=== PATIENT | female | born 1975 | race Caucasian/White ===

== ENCOUNTER → 2017-09-16 11:24 | Outpatient (CLI) | payer MEDICARE, MEDICAID, SELFPAY ==
[2017-09-16 12:55] LABS: Absolute Lymphocyte Count 1.28 X10^3/ul (0.83-4.51); Absolute Neutrophil Count 3.7 X10^3/uL (2.0-7.7); Basophil# 0.03 X10^3/uL; Basophil% 0.5 % (0-1); Eosinophil# 0.09 X10^3/uL; Eosinophils% 1.5 % (0-5); Hematocrit 43.2 % (37-47); Hemoglobin 14.3 g/dl (12.0-15.0); Lymphocyte # 1.28 X10^3/ul (4.0); Lymphocyte % 21.8 % (19-41); Mean Corp Hgb Conc 33.1 g/gl (32-36); Mean Corpuscular Hgb 30.6 pg (27.0-32.0); Mean Corpuscular Volume 92.3 fL (81-99); Mean Platelet Vol. 9.5 fl (6.2-12.0); Monocyte# 0.74 X10^3/uL; Monocyte% 12.6 % (0-10); Neutrophil # 3.72 X10^3/uL (2.7-7.7); Neutrophil % 63.4 % (47-70); Platelet Count 294 K/mm3 (150-450); RBC Distribution Width CV 12.8 % (11.6-14.6); RBC Distribution Width SD 42.9 fl (35.1-43.9); Red Blood Count 4.68 M/mm3 (4.2-5.4); White Blood Count 5.9 K/mm3 (4.4-11.0)
[2017-09-16 13:00] LABS: POSITIVE COUNT NO; POSITIVE DIFFERENTIAL NO; POSITIVE MORPHOLOGY NO
[2017-09-16 13:28] LABS: Anion Gap 9 (5-15); BUN 9 mg/dL (7-18); BUN/Creat Ratio 9.2 RATIO (10-20); Calcium,Total 8.4 mg/dL (8.5-10.1); Chloride 107 mmol/L (98-107); Creatinine, Serum 0.98 mg/dL (0.55-1.02); EST Glomerular Filtration Rate 66 mL/min (>60); Est Glom Filt Rate - Afr Amer 80 mL/min (>60); Glucose 84 mg/dL (74-106); Potassium 3.9 mmol/L (3.5-5.1); Sodium Level 139 mmol/L (136-145); Thyroid Stim Hormone (TSH) 2.09 uIU/mL (0.358-3.74)
== END ==
PROVIDERS: Family Provider Family Medicine Geriatric Medicine; PCP Family Medicine Geriatric Medicine; Visit Provider Family Medicine Geriatric Medicine
DX: I10 Essential (primary) hypertension (principal); R53.83 Other fatigue; R61 Generalized hyperhidrosis
CPT/HCPCS: 36415; 80048; 84443; 85025

== ENCOUNTER → 2018-05-09 16:29 | Outpatient (CLI) | payer MEDICARE, MEDICAID, SELFPAY ==
[2018-05-09 17:47] LABS: Absolute Lymphocyte Count 1.43 X10^3/ul (0.83-4.51); Absolute Neutrophil Count 2.7 X10^3/uL (2.0-7.7); Basophil# 0.03 X10^3/uL; Basophil% 0.6 % (0-1); Eosinophil# 0.09 X10^3/uL; Eosinophils% 1.9 % (0-5); Hematocrit 42.2 % (37-47); Hemoglobin 14.2 g/dl (12.0-15.0); Lymphocyte # 1.43 X10^3/ul (4.0); Lymphocyte % 29.6 % (19-41); Mean Corp Hgb Conc 33.6 g/gl (32-36); Mean Corpuscular Hgb 30.2 pg (27.0-32.0); Mean Corpuscular Volume 89.8 fL (81-99); Mean Platelet Vol. 9.7 fl (6.2-12.0); Monocyte# 0.57 X10^3/uL; Monocyte% 11.8 % (0-10); Neutrophil # 2.71 X10^3/uL (2.7-7.7); Neutrophil % 56.1 % (47-70); Platelet Count 315 K/mm3 (150-450); RBC Distribution Width CV 12.4 % (11.6-14.6); RBC Distribution Width SD 40.4 fl (35.1-43.9); White Blood Count 4.8 K/mm3 (4.4-11.0)
[2018-05-09 18:18] LABS: POSITIVE COUNT NO; POSITIVE DIFFERENTIAL NO; POSITIVE MORPHOLOGY NO
[2018-05-09 18:20] LABS: AST(SGOT) 25 U/L (15-37); Alanine Aminotransfer ALT/SGPT 38 U/L (13-56); Albumin, Serum 4.2 g/dL (3.2-5.0); Alkaline Phosphatase 130 U/L (45-117); Anion Gap 10 (5-15); BUN 6 mg/dL (7-18); BUN/Creat Ratio 6.1 RATIO (10-20); Calcium,Total 8.5 mg/dL (8.5-10.1); Chloride 106 mmol/L (98-107); Creatinine, Serum 0.98 mg/dL (0.55-1.02); EST Glomerular Filtration Rate 66 mL/min (>60); Est Glom Filt Rate - Afr Amer 80 mL/min (>60); Glucose 98 mg/dL (74-106); Potassium 2.9 mmol/L (3.5-5.1); Protein, Total 8.2 g/dL (6.4-8.2); Sodium Level 139 mmol/L (136-145); Thyroid Stim Hormone (TSH) 1.45 uIU/mL (0.358-3.74)
== END ==
PROVIDERS: Family Provider Family Medicine Geriatric Medicine; PCP Family Medicine Geriatric Medicine; Visit Provider Family Medicine Geriatric Medicine
DX: I10 Essential (primary) hypertension (principal)
CPT/HCPCS: 36415; 80053; 84443; 85025

== ENCOUNTER → 2019-04-04 14:23 | Outpatient (CLI) | payer MEDICARE, MEDICAID, SELFPAY | PROVIDERS: Family Provider Family Medicine Geriatric Medicine; PCP Family Medicine Geriatric Medicine; Referring Provider Family Medicine Geriatric Medicine; Visit Provider Family Medicine Geriatric Medicine | DX: J40 Bronchitis, not specified as acute or chronic (principal) | CPT/HCPCS: 87633 ==

== ENCOUNTER → 2019-05-09 08:08 | Outpatient (CLI) | payer MEDICARE, MEDICAID, SELFPAY ==
--- NOTE | 2019-05-09 08:14 | RAD_ITS ---
STUDY: X-RAY - ESOPHAGUS (BARIUM SWALLOW) WITH FLUOROSCOPY REASON FOR EXAM: Female, 44 years old. SCLERODERMA DYSPHAGIA, CHRONIC HEARTBURN; -- MS, MIXED CONNECTIVE TISSUE AUTOIMMUNE DISEASE TECHNIQUE: 15 view(s) of the esophagus were obtained following swallowing of barium. FLUOROSCOPY TIME (if supplied): (0:28) minutes/seconds COMPARISON: None. FINDINGS: There is no demonstrated esophageal foreign body. There is no demonstrated stricture or mucosal abnormality. There is a small hiatal hernia of the fundus of the stomach. No evidence of gastroesophageal reflux. The patient ingested a 12 mm tablet of barium without any difficulty. Normal visualized aortic arch and descending thoracic aorta. Normal visualized pulmonary parenchyma. Normal visualized osseous structures of the thorax. RAD/Esophagus Only IMPRESSION: Small sliding hiatal hernia without gastroesophageal reflux. Electronically Signed: Slade Benson, at 13:40 EST , Service support ,
== END ==
PROVIDERS: Family Provider Family Medicine Geriatric Medicine; PCP Family Medicine Geriatric Medicine; Referring Provider Internal Medicine Gastroenterology; Visit Provider Internal Medicine Gastroenterology
DX: M34.9 Systemic sclerosis, unspecified (principal); R13.10 Dysphagia, unspecified
CPT/HCPCS: 74220

== ENCOUNTER → 2019-06-30 09:21 | Outpatient (CLI) | payer MEDICARE, MEDICAID, SELFPAY ==
[2019-06-30 13:02] LABS: Absolute Lymphocyte Count 1.11 X10^3/uL (0.83-4.51); Absolute Neutrophil Count 2.7 X10^3/uL (2.0-7.7); Basophil# 0.05 X10^3/uL; Basophil% 1.1 % (0-1); Eosinophils% 4.3 % (0-5); Hematocrit 42.6 % (37-47); Hemoglobin 13.8 g/dL (12.0-15.0); Lymphocyte # 1.11 X10^3/ul (4.0); Lymphocyte % 23.9 % (19-41); Mean Corp Hgb Conc 32.4 g/dL (32-36); Mean Corpuscular Hgb 30.3 pg (27.0-32.0); Mean Corpuscular Volume 93.4 fL (81-99); Mean Platelet Vol. 9.2 fl (6.2-12.0); Monocyte% 12.9 % (0-10); NRBC Flagged by Analyzer 0 % (0-5); Neutrophil # 2.66 X10^3/uL (2.7-7.7); Neutrophil % 57.2 % (47-70); Platelet Count 351 K/mm3 (150-450); RBC Distribution Width CV 12.8 % (11.6-14.6); RBC Distribution Width SD 43.9 fl (35.1-43.9); Red Blood Count 4.56 M/mm3 (4.2-5.4); White Blood Count 4.7 K/mm3 (4.4-11.0)
[2019-06-30 13:32] LABS: ALB/GLOB Ratio 0.8 RATIO (0.9-2.4); AST(SGOT) 25 U/L (15-37); Alanine Aminotransfer ALT/SGPT 40 U/L (13-56); Albumin, Serum 3.5 g/dL (3.2-5.0); Alkaline Phosphatase 143 U/L (45-117); Anion Gap 9 (5-15); BUN 15 mg/dL (7-18); BUN/Creat Ratio 15.8 RATIO (10-20); Calcium,Total 8.1 mg/dL (8.5-10.1); Chloride 106 mmol/L (98-107); Creatinine, Serum 0.95 mg/dL (0.55-1.02); EST Glomerular Filtration Rate 68 mL/min (>60); Est Glom Filt Rate - Afr Amer 83 mL/min (>60); Globulin 4.2 g/dL (2.2-4.2); Glucose 81 mg/dL (74-106); Potassium 3.8 mmol/L (3.5-5.1); Protein, Total 7.7 g/dL (6.4-8.2); Sodium Level 138 mmol/L (136-145)
== END ==
PROVIDERS: PCP Family Medicine Geriatric Medicine; Referring Provider Family Medicine Geriatric Medicine; Visit Provider Family Medicine Geriatric Medicine
DX: I10 Essential (primary) hypertension (principal)
CPT/HCPCS: 36415; 80053; 84443; 85025

== ENCOUNTER → 2019-12-08 17:43 | Outpatient (CLI) | payer MEDICARE, MEDICAID, SELFPAY | PROVIDERS: PCP Family Medicine Geriatric Medicine; Referring Provider Family Medicine Geriatric Medicine; Visit Provider Family Medicine Geriatric Medicine | DX: R06.89 Other abnormalities of breathing (principal) | CPT/HCPCS: 87635; 94799; U0003 ==

== ENCOUNTER → 2021-02-10 15:24 | Outpatient (CLI) | payer MEDICARE, OTHER, SELFPAY ==
[2021-02-10 17:03] LABS: Absolute Lymphocyte Count 1.49 X10^3/uL (0.83-4.51); Absolute Neutrophil Count 4.1 X10^3/uL (2.0-7.7); Basophil# 0.04 X10^3/uL; Basophil% 0.6 % (0-1); Eosinophil# 0.13 X10^3/uL; Eosinophils% 2.1 % (0-5); Hematocrit 39.5 % (37-47); Hemoglobin 13.5 g/dL (12.0-15.0); Lymphocyte # 1.49 X10^3/ul (0.83-4.51); Lymphocyte % 23.6 % (19-41); Mean Corp Hgb Conc 34.2 g/dL (32-36); Mean Corpuscular Hgb 30.1 pg (27.0-32.0); Mean Corpuscular Volume 88.2 fL (81-99); Mean Platelet Vol. 9.4 fl (6.2-12.0); Monocyte# 0.56 X10^3/uL; Monocyte% 8.9 % (0-10); NRBC Flagged by Analyzer 0 % (0-5); Neutrophil # 4.07 X10^3/uL (2.7-7.7); Neutrophil % 64.5 % (47-70); Platelet Count 332 K/mm3 (150-450); RBC Distribution Width CV 13.1 % (11.6-14.6); Red Blood Count 4.48 M/mm3 (4.2-5.4); White Blood Count 6.3 K/mm3 (4.4-11.0)
[2021-02-10 17:20] LABS: ALB/GLOB Ratio 0.7 RATIO (0.9-2.4); AST(SGOT) 23 U/L (15-37); Alanine Aminotransfer ALT/SGPT 32 U/L (13-56); Alkaline Phosphatase 122 U/L (45-117); Anion Gap 10 (5-15); BUN 11 mg/dL (7-18); BUN/Creat Ratio 10.3 RATIO (10-20); Calcium,Total 8.2 mg/dL (8.5-10.1); Chloride 107 mmol/L (98-107); Creatinine, Serum 1.07 mg/dL (0.55-1.02); EST Glomerular Filtration Rate 59 mL/min (>60); Est Glom Filt Rate - Afr Amer 72 mL/min (>60); Globulin 4.5 g/dL (2.2-4.2); Glucose 123 mg/dL (74-106); Potassium 3.8 mmol/L (3.5-5.1); Protein, Total 7.5 g/dL (6.4-8.2); Sodium Level 138 mmol/L (136-145); Thyroid Stim Hormone (TSH) 1.22 uIU/mL (0.358-3.74)
== END ==
PROVIDERS: PCP Family Medicine Geriatric Medicine; Visit Provider Family Medicine Geriatric Medicine
DX: I10 Essential (primary) hypertension (principal)
CPT/HCPCS: 36415; 80053; 84443; 85025

== ENCOUNTER 2021-06-12 10:19 | Outpatient (CLI) | payer OTHER, MEDICARE, SELFPAY | END 2021-06-12 23:59 | disposition home or self-care (01) | LOC: PSN 10:22 | PROVIDERS: PCP Family Medicine Geriatric Medicine; Referring Provider Family Medicine Geriatric Medicine; Visit Provider Family Medicine Geriatric Medicine | DX: R68.83 Chills (without fever) (principal); Z20.822 Contact with and (suspected) exposure to COVID-19 | CPT/HCPCS: 87635; 87804; 87807; C9803; U0003; U0005 ==

== ENCOUNTER → 2022-01-06 | Outpatient (CLI) | payer MEDICARE, MEDICAID, SELFPAY ==
[2022-01-06 14:46] LABS: Hematocrit 42.1 % (37-47); Hemoglobin 13.6 g/dL (12.0-15.0); Mean Corp Hgb Conc 32.3 g/dL (32-36); Mean Corpuscular Hgb 29.8 pg (27.0-32.0); Mean Corpuscular Volume 92.1 fL (81-99); Mean Platelet Vol. 9.5 fl (6.2-12.0); Platelet Count 350 K/mm3 (150-450); RBC Distribution Width CV 12.9 % (11.6-14.6); RBC Distribution Width SD 43.3 fl (35.1-43.9); Red Blood Count 4.57 M/mm3 (4.2-5.4); White Blood Count 6.5 K/mm3 (4.4-11.0)
[2022-01-06 17:35] LABS: ALB/GLOB Ratio 0.6 RATIO (0.9-2.4); AST(SGOT) 17 U/L (15-37); Alanine Aminotransfer ALT/SGPT 28 U/L (13-56); Albumin, Serum 3.2 g/dL (3.2-5.0); Alkaline Phosphatase 142 U/L (45-117); Anion Gap 10 (5-15); BUN 12 mg/dL (7-18); BUN/Creat Ratio 8.5 RATIO (10-20); Calcium,Total 8.4 mg/dL (8.5-10.1); Chloride 107 mmol/L (98-107); Creatinine, Serum 1.41 mg/dL (0.55-1.02); EST Glomerular Filtration Rate 43 mL/min (>60); Est Glom Filt Rate - Afr Amer 52 mL/min (>60); Globulin 5.1 g/dL (2.2-4.2); Glucose 88 mg/dL (74-106); Potassium 3.9 mmol/L (3.5-5.1); Protein, Total 8.3 g/dL (6.4-8.2); Sodium Level 139 mmol/L (136-145); Thyroid Stim Hormone (TSH) 1.33 uIU/mL (0.358-3.74)
== END | disposition home or self-care (01) ==
LOC: LAB 14:03
PROVIDERS: PCP Family Medicine Geriatric Medicine; Visit Provider Psychiatry & Neurology Neurology
DX: I10 Essential (primary) hypertension (principal); F42.9 Obsessive-compulsive disorder, unspecified
CPT/HCPCS: 36415; 80053; 84443; 85027

== ENCOUNTER → 2022-03-31 | Outpatient (CLI) | payer MEDICARE, MEDICAID, SELFPAY ==
[2022-03-31 17:22] LABS: Absolute Lymphocyte Count 1.22 X10^3/uL (0.83-4.51); Absolute Neutrophil Count 7.1 X10^3/uL (2.0-7.7); Basophil# 0.06 X10^3/uL; Basophil% 0.6 % (0-1); Eosinophil# 0.13 X10^3/uL; Eosinophils% 1.4 % (0-5); Hemoglobin 13.9 g/dL (12.0-15.0); Lymphocyte # 1.22 X10^3/ul (0.83-4.51); Lymphocyte % 12.9 % (19-41); Mean Corp Hgb Conc 32.3 g/dL (32-36); Mean Corpuscular Hgb 29.2 pg (27.0-32.0); Mean Corpuscular Volume 90.3 fL (81-99); Monocyte# 0.92 X10^3/uL; Monocyte% 9.7 % (0-10); NRBC Flagged by Analyzer 0 % (0-5); Neutrophil # 7.08 X10^3/uL (2.7-7.7); Neutrophil % 74.9 % (47-70); Platelet Count 309 K/mm3 (150-450); RBC Distribution Width CV 13.1 % (11.6-14.6); RBC Distribution Width SD 43.3 fl (35.1-43.9); Red Blood Count 4.76 M/mm3 (4.2-5.4); White Blood Count 9.5 K/mm3 (4.4-11.0)
[2022-03-31 17:54] LABS: ALB/GLOB Ratio 0.8 RATIO (0.9-2.4); AST(SGOT) 18 U/L (15-37); Alanine Aminotransfer ALT/SGPT 27 U/L (13-56); Albumin, Serum 3.4 g/dL (3.2-5.0); Alkaline Phosphatase 119 U/L (45-117); Anion Gap 10 (5-15); BUN 8 mg/dL (7-18); BUN/Creat Ratio 6.7 RATIO (10-20); Calcium,Total 8.5 mg/dL (8.5-10.1); Chloride 108 mmol/L (98-107); Creatinine, Serum 1.19 mg/dL (0.55-1.02); EST Glomerular Filtration Rate 52 mL/min (>60); Est Glom Filt Rate - Afr Amer 63 mL/min (>60); Globulin 4.5 g/dL (2.2-4.2); Glucose 114 mg/dL (74-106); Potassium 3.5 mmol/L (3.5-5.1); Protein, Total 7.9 g/dL (6.4-8.2); Sodium Level 139 mmol/L (136-145); Thyroid Stim Hormone (TSH) 0.68 uIU/mL (0.358-3.74)
== END | disposition home or self-care (01) ==
LOC: POLAB3 14:38
PROVIDERS: PCP Family Medicine Geriatric Medicine; Visit Provider Family Medicine Geriatric Medicine
DX: I10 Essential (primary) hypertension (principal)
CPT/HCPCS: 36415; 80053; 84443; 85025

== ENCOUNTER → 2022-04-29 | Outpatient (CLI) | payer MEDICARE, MEDICAID, SELFPAY ==
[2022-04-29 17:28] LABS: Absolute Neutrophil Count 2.4 X10^3/uL (2.0-7.7); Basophil# 0.05 X10^3/uL; Eosinophil# 0.07 X10^3/uL; Eosinophils% 1.4 % (0-5); Hematocrit 40.3 % (37-47); Hemoglobin 13.6 g/dL (12.0-15.0); Lymphocyte % 30.7 % (19-41); Mean Corp Hgb Conc 33.7 g/dL (32-36); Mean Corpuscular Hgb 30.1 pg (27.0-32.0); Mean Corpuscular Volume 89.2 fL (81-99); Mean Platelet Vol. 9.6 fl (6.2-12.0); Monocyte# 0.83 X10^3/uL; NRBC Flagged by Analyzer 0 % (0-5); Neutrophil # 2.42 X10^3/uL (2.7-7.7); Neutrophil % 49.7 % (47-70); Platelet Count 335 K/mm3 (150-450); RBC Distribution Width CV 13.4 % (11.6-14.6); RBC Distribution Width SD 43.2 fl (35.1-43.9); Red Blood Count 4.52 M/mm3 (4.2-5.4); White Blood Count 4.9 K/mm3 (4.4-11.0)
[2022-04-29 17:49] LABS: Anion Gap 8 (5-15); BUN 6 mg/dL (7-18); BUN/Creat Ratio 6.1 RATIO (10-20); Calcium,Total 8.4 mg/dL (8.5-10.1); Chloride 112 mmol/L (98-107); Creatinine, Serum 0.98 mg/dL (0.55-1.02); EST Glomerular Filtration Rate 65 mL/min (>60); Est Glom Filt Rate - Afr Amer 79 mL/min (>60); Glucose 88 mg/dL (74-106); Magnesium 2.3 mg/dL (1.6-2.6); Potassium 3.4 mmol/L (3.5-5.1); Sodium Level 141 mmol/L (136-145)
== END | disposition home or self-care (01) ==
LOC: POLAB3 15:03
PROVIDERS: PCP Family Medicine Geriatric Medicine; Visit Provider Family Medicine Geriatric Medicine
DX: I10 Essential (primary) hypertension (principal); E83.42 Hypomagnesemia; E87.6 Hypokalemia; R19.7 Diarrhea, unspecified
CPT/HCPCS: 36415; 80048; 82274; 83630; 83735; 85025; 87177; 87209; 87493; 87506

== ENCOUNTER → 2022-07-09 | Outpatient (CLI) | payer MEDICARE, MEDICAID, SELFPAY ==
--- NOTE | 2022-07-09 14:44 | RAD_ITS ---
STUDY: X-RAY - LEFT SHOULDER REASON FOR EXAM: Female, 47 years old. Pain. TECHNIQUE: view(s) of the shoulder. COMPARISON: None. FINDINGS: Normal glenohumeral articulation. Mild arthrosis of the AC joint. Normal acromion. Normal humeral head and visualized proximal humerus. The soft tissue structures are unremarkable. Normal visualized pulmonary apex. RAD/Shoulder min 2 Views IMPRESSION: Mild arthrosis of the AC joint. No other abnormality. Electronically Signed: Fabien Alvarado, at 9:41 EST ,
== END | disposition home or self-care (01) ==
LOC: RAD 14:39
PROVIDERS: PCP Family Medicine Geriatric Medicine; Referring Provider Family Medicine Geriatric Medicine; Visit Provider Family Medicine Geriatric Medicine
DX: M19.012 Primary osteoarthritis, left shoulder (principal)
CPT/HCPCS: 73030

== ENCOUNTER → 2022-08-04 | Outpatient (CLI) | payer MEDICARE, MEDICAID, SELFPAY ==
[2022-08-04 17:41] LABS: Absolute Lymphocyte Count 1.45 X10^3/uL (0.83-4.51); Absolute Neutrophil Count 5.2 X10^3/uL (2.0-7.7); Basophil# 0.05 X10^3/uL; Basophil% 0.7 % (0-1); Eosinophil# 0.06 X10^3/uL; Eosinophils% 0.8 % (0-5); Hematocrit 43.8 % (37-47); Hemoglobin 14.6 g/dL (12.0-15.0); Lymphocyte # 1.45 X10^3/ul (0.83-4.51); Lymphocyte % 19.5 % (19-41); Mean Corp Hgb Conc 33.3 g/dL (32-36); Mean Corpuscular Hgb 30.2 pg (27.0-32.0); Mean Corpuscular Volume 90.5 fL (81-99); Mean Platelet Vol. 10.1 fl (6.2-12.0); Monocyte# 0.67 X10^3/uL; NRBC Flagged by Analyzer 0 % (0-5); Neutrophil # 5.19 X10^3/uL (2.7-7.7); Neutrophil % 69.6 % (47-70); Platelet Count 340 K/mm3 (150-450); RBC Distribution Width CV 13.2 % (11.6-14.6); RBC Distribution Width SD 43.2 fl (35.1-43.9); Red Blood Count 4.84 M/mm3 (4.2-5.4); White Blood Count 7.5 K/mm3 (4.4-11.0)
[2022-08-04 17:46] LABS: Glucose, Dipstick Normal (Normal); Ketone-Dipstick 5 mg/dl (Negative); Leukocyte Esterase-Dipstick Negative /ul (Negative); Nitrite-Dipstick Negative (Negative); Occult Blood-Urine Negative /ul (Negative); Protein-Dipstick 15 mg/dl (Negative); Urine Bilirubin Dipstick Negative (Negative); Urine Urobilinogen Normal (Normal)
[2022-08-04 17:53] LABS: Color, Urine Yellow (Yellow); Urine Clarity Clear (Clear)
[2022-08-04 18:11] LABS: Anion Gap 9 (5-15); BUN 8 mg/dL (7-18); BUN/Creat Ratio 7.3 RATIO (10-20); Calcium,Total 8.7 mg/dL (8.5-10.1); Chloride 114 mmol/L (98-107); Creatinine, Serum 1.09 mg/dL (0.55-1.02); EST Glomerular Filtration Rate 58 mL/min (>60); Est Glom Filt Rate - Afr Amer 70 mL/min (>60); Glucose 121 mg/dL (74-106); Potassium 3.2 mmol/L (3.5-5.1); Sodium Level 138 mmol/L (136-145)
== END | disposition home or self-care (01) ==
PROVIDERS: Psychiatry & Neurology Neurology; PCP Family Medicine Geriatric Medicine; Visit Provider Family Medicine Geriatric Medicine
DX: I10 Essential (primary) hypertension (principal); N28.9 Disorder of kidney and ureter, unspecified
CPT/HCPCS: 36415; 80048; 81002; 85025

== ENCOUNTER → 2022-10-13 | Outpatient (CLI) | payer MEDICARE, MEDICAID, SELFPAY ==
[2022-10-13 17:46] LABS: Anion Gap 6 (5-15); BUN 8 mg/dL (7-18); BUN/Creat Ratio 7.3 RATIO (10-20); Calcium,Total 8.9 mg/dL (8.5-10.1); Chloride 114 mmol/L (98-107); EST Glomerular Filtration Rate 57 mL/min (>60); Est Glom Filt Rate - Afr Amer 69 mL/min (>60); Glucose 90 mg/dL (74-106); Potassium 3.9 mmol/L (3.5-5.1); Sodium Level 140 mmol/L (136-145)
[2022-10-13 17:54] LABS: Hemoglobin A1c 5.1 % (3.8-5.6)
== END | disposition home or self-care (01) ==
LOC: MTLAB 15:37
PROVIDERS: PCP Family Medicine Geriatric Medicine; Referring Provider Psychiatry & Neurology Neurology; Visit Provider Psychiatry & Neurology Neurology
DX: N28.9 Disorder of kidney and ureter, unspecified (principal); E87.6 Hypokalemia; R73.9 Hyperglycemia, unspecified
CPT/HCPCS: 36415; 80048; 83036

== ENCOUNTER → 2022-10-14 | Outpatient (CLI) | payer MEDICARE, MEDICAID, SELFPAY ==
[2022-10-14 15:54] LABS: Erythrocyte Sedimentation Rate 12 mm/hr (0-30)
[2022-10-14 16:12] LABS: ALB/GLOB Ratio 0.8 RATIO (0.9-2.4); AST(SGOT) 15 U/L (15-37); Alanine Aminotransfer ALT/SGPT 20 U/L (13-56); Albumin, Serum 3.3 g/dL (3.2-5.0); Alkaline Phosphatase 111 U/L (45-117); Anion Gap 8 (5-15); BUN 11 mg/dL (7-18); BUN/Creat Ratio 10.5 RATIO (10-20); CRP < 2.90 mg/L (0.0-3.0); Calcium,Total 8.4 mg/dL (8.5-10.1); Chloride 114 mmol/L (98-107); Creatinine, Serum 1.05 mg/dL (0.55-1.02); EST Glomerular Filtration Rate 60 mL/min (>60); Est Glom Filt Rate - Afr Amer 73 mL/min (>60); Globulin 4.3 g/dL (2.2-4.2); Glucose 88 mg/dL (74-106); LDH 150 U/L (84-246); Potassium 3.5 mmol/L (3.5-5.1); Protein, Total 7.6 g/dL (6.4-8.2); Sodium Level 139 mmol/L (136-145)
[2022-10-16 15:08] LABS: Albumin 3.6 g/dL (2.9-4.4); Alpha-1-Globulins 0.2 g/dL (0.0-0.4); Alpha-2-Globulins 0.8 g/dL (0.4-1.0); Angiotensin Convert Enzyme 40 U/L (14-82); Anti-Centromere B Ab <0.2 AI (0.0-0.9); Anti-Chromatin 0.4 AI (0.0-0.9); Anti-Jo <0.2 AI (0.0-0.9); Anti-Mitochondrial AB <20.0 Units (0.0-20.0); Anti-Scleroderma-70 AB <0.2 AI (0.0-0.9); Anti-Smooth Muscle ABS 9 Units (0-19); Anti-dsDNA Ab <1 IU/mL (0-9); Ceruloplasmin 27.8 mg/dL (19.0-39.0); Cytoplasmic Ab (C-ANCA) <1:20 titer (Neg:<1:20); Endomysial Antibody IgA Negative (Negative); Gamma Globulin 1.4 g/dL (0.4-1.8); HEPATITIS B SURFACE AG Negative (Negative); Hep C Antibodies Non Reactive (Non Reactive); Hepatitis A IgM Antibody Negative (Negative); Hepatitis B Core AB IgM Negative (Negative); Immunoglobulin A 307 mg/dL (87-352); Immunoglobulin A 322 mg/dL (87-352); Immunoglobulin G 1298 mg/dL (586-1602); Immunoglobulin M 72 mg/dL (26-217); PROEL- TOTAL PROTEIN 7.4 g/dL (6.0-8.5); Perinuclear Ab (P-ANCA) <1:20 titer (Neg:<1:20); RNP Ab 3.3 AI (0.0-0.9); SJOGREN'S Anti-SS-A test < 0.2 AI (0.0-0.9); SJOGREN'S Anti-SS-B test < 0.2 AI (0.0-0.9); Smith Ab 0.6 AI (0.0-0.9); t-Transglutaminase IgA <2 U/mL (0-3)
== END | disposition home or self-care (01) ==
PROVIDERS: PCP Family Medicine Geriatric Medicine; Referring Provider Internal Medicine Gastroenterology; Visit Provider Internal Medicine Gastroenterology
DX: R19.5 Other fecal abnormalities (principal); R53.83 Other fatigue
CPT/HCPCS: 36415; 80053; 80074; 82164; 82390; 82784; 83516; 83615; 84165; 85652; 86140; 86225; 86235; 86255; 86256; 86334

== ENCOUNTER → 2023-04-01 | Outpatient (CLI) | payer MEDICARE, MEDICAID, SELFPAY ==
[2023-04-01 17:28] LABS: Absolute Lymphocyte Count 1.04 X10^3/uL (0.83-4.51); Absolute Neutrophil Count 2.9 X10^3/uL (2.0-7.7); Basophil# 0.06 X10^3/uL; Basophil% 1.2 % (0-1); Eosinophil# 0.09 X10^3/uL; Eosinophils% 1.8 % (0-5); Hematocrit 39.8 % (37-47); Hemoglobin 13.5 g/dL (12.0-15.0); Lymphocyte # 1.04 X10^3/ul (0.83-4.51); Lymphocyte % 21.4 % (19-41); Mean Corp Hgb Conc 33.9 g/dL (32-36); Mean Corpuscular Volume 97.3 fL (81-99); Mean Platelet Vol. 9.8 fl (6.2-12.0); Monocyte% 14.4 % (0-10); NRBC Flagged by Analyzer 0 % (0-5); Neutrophil # 2.93 X10^3/uL (2.7-7.7); Neutrophil % 60.2 % (47-70); Platelet Count 389 K/mm3 (150-450); RBC Distribution Width CV 14.6 % (11.6-14.6); RBC Distribution Width SD 51.1 fl (35.1-43.9); Red Blood Count 4.09 M/mm3 (4.2-5.4); White Blood Count 4.9 K/mm3 (4.4-11.0)
[2023-04-01 18:08] LABS: AST(SGOT) 28 U/L (15-37); Alanine Aminotransfer ALT/SGPT 55 U/L (13-56); Albumin, Serum 3.8 g/dL (3.2-5.0); Alkaline Phosphatase 121 U/L (45-117); Anion Gap 7 (5-15); BUN 7 mg/dL (7-18); Calcium,Total 8.1 mg/dL (8.5-10.1); Chloride 110 mmol/L (98-107); Cholesterol 134 mg/dL (200); EST Glomerular Filtration Rate 64 mL/min (>60); Est Glom Filt Rate - Afr Amer 77 mL/min (>60); Globulin 3.7 g/dL (2.2-4.2); Glucose 83 mg/dL (74-106); High Density Lipoprotein 48 mg/dL; Potassium 3.4 mmol/L (3.5-5.1); Protein, Total 7.5 g/dL (6.4-8.2); Sodium Level 139 mmol/L (136-145); Thyroid Stim Hormone (TSH) 1.39 uIU/mL (0.358-3.74); Triglycerides 100 mg/dL; Very Low Density Lipoprotein 20 mg/dL (5-40)
[2023-04-01 18:39] LABS: Color, Urine Yellow (Yellow); Glucose, Dipstick Normal (Normal); Ketone-Dipstick 5 mg/dl (Negative); Leukocyte Esterase-Dipstick 25 /ul (Negative); Nitrite-Dipstick Negative (Negative); Occult Blood-Urine 250 /ul (Negative); Protein-Dipstick 30 mg/dl (Negative); Urine Bilirubin Dipstick Negative (Negative); Urine Clarity Sl. Cloudy (Clear); Urine Urobilinogen Normal (Normal)
== END | disposition home or self-care (01) ==
LOC: POLAB3 16:02
PROVIDERS: PCP Family Medicine Geriatric Medicine; Visit Provider Family Medicine Geriatric Medicine
DX: R30.0 Dysuria (principal); I10 Essential (primary) hypertension; E78.5 Hyperlipidemia, unspecified
CPT/HCPCS: 36415; 80053; 80061; 81002; 84443; 85025; 87086; 87088

== ENCOUNTER → 2023-08-26 | Outpatient (CLI) | payer MEDICARE, MEDICAID, SELFPAY ==
[2023-08-26 11:23] LABS: Creatinine, Serum 1.01 mg/dL (0.55-1.02); EST Glomerular Filtration Rate 63 mL/min (>60); Est Glom Filt Rate - Afr Amer 76 mL/min (>60); Potassium 3.1 mmol/L (3.5-5.1)
== END | disposition home or self-care (01) ==
LOC: MTLAB 08:42
PROVIDERS: PCP Family Medicine Geriatric Medicine; Referring Provider Psychiatry & Neurology Neurology; Visit Provider Psychiatry & Neurology Neurology
DX: E87.6 Hypokalemia (principal)
CPT/HCPCS: 36415; 82565; 84132

== ENCOUNTER → 2023-09-06 | Outpatient (CLI) | payer MEDICARE, MEDICAID, SELFPAY ==
--- NOTE | 2023-09-06 12:51 | ECHOD_ITS ---
Version 2 Reason For Study: PERICARDIAL EFFUSION Procedure This was a 2D Doppler, Color Flow transthoracic echocardiogram. Exam performed in department. Left Ventricle Normal LV size. Left ventricular systolic function is normal. The left ventricular ejection fraction is 60 %. No regional wall motion abnormalities noted. Right Ventricle Normal RV size. Normal systolic function. Atria Normal left atrium. Normal right atrium. Mitral Valve Normal mitral valve. Tricuspid Valve Normal tricuspid valve. Mild (1+) tricuspid valve insufficiency. Pulmonary artery systolic pressure is 27 mmHg. Aortic Valve Trisinus/trileaflet aortic valve. Mild (1+) aortic valve insufficiency. Pulmonic Valve Normal pulmonic valve. Great Vessels Normal aortic root. The pulmonary artery is normal size. Normal inferior vena cava. Pericardium/Pleural No pericardial effusion. MMode/2D Measurements & Calculations LVIDd: 4.2 cm IVSd: 0.80 cm Ao root diam: 2.4 cm LVIDs: 2.7 cm LVPWd: 0.77 cm RVDd: 2.8 cm FS: 34.9 % LAV(MOD-bp): 36.5 ml LVAd ap4: 21.6 cm2 LVAd ap2: 18.4 cm2 LAV(MOD-bp) Indexed: 21.5 ml/m2 LVLd ap4: 7.9 cm LVLd ap2: 7.1 cm LAV(MOD-sp2): 29.4 ml EDV(MOD-sp4): 51.2 ml EDV(MOD-sp2): 41.8 ml LAV(MOD-sp4): 40.9 ml EDV(sp4-el): 50.6 ml EDV(sp2-el): 40.8 ml LVAs ap4: 11.5 cm2 LVAs ap2: 10.0 cm2 LVLs ap4: 6.0 cm LVLs ap2: 5.6 cm ESV(MOD-sp4): 20.1 ml ESV(MOD-sp2): 15.4 ml ESV(sp4-el): 18.7 ml ESV(sp2-el): 15.0 ml EF(MOD-sp4): 60.6 % EF(MOD-sp2): 63.1 % EF(sp4-el): 63.1 % SV(MOD-sp4): 31.0 ml SV(MOD-sp2): 26.4 ml SV(sp4-el): 31.9 ml LA dimension(2D): 3.3 cm LA A4 area: 15.7 cm2 RA A4 area: 11.8 cm2 TAPSE: 1.9 cm Time Measurements MV dec time: 0.15 sec Doppler Measurements & Calculations MV E max prieto: 53.9 cm/sec Lat Peak E' Prieto: 18.1 cm/sec Med Peak E' Prieto: 11.2 cm/sec MV A max prieto: 51.1 cm/sec E/E' lat: 3.0 E/E' med: 4.8 MV E/A: 1.1 MV V2 max: 139.0 cm/sec MV P1/2t max prieto: 123.1 cm/sec Ao V2 max: 121.0 cm/sec MV max P.7 mmHg MV P1/2t: 55.4 msec Ao max P.9 mmHg MV V2 mean: 64.3 cm/sec MV dec slope: 651.0 cm/sec2 Ao V2 mean: 84.5 cm/sec MV mean P.0 mmHg Ao mean P.3 mmHg MV V2 VTI: 25.9 cm MVA(P1/2t): 4.0 cm2 Ao V2 VTI: 27.5 cm AV (velocity ratio): 0.76 AI max prieto: 427.2 cm/sec LV V1 max: 93.2 cm/sec PA V2 max: 95.1 cm/sec AI max P.0 mmHg LV V1 max P.5 mmHg PA V2 mean: 64.6 cm/sec AI dec slope: 183.6 cm/sec2 LV V1 mean P.0 mmHg AI P1/2t: 681.5 msec LV V1 mean: 68.8 cm/sec LV V1 VTI: 20.9 cm TR max prieto: 242.5 cm/sec TR max P.5 mmHg ECHO/Echo Complete Interpretation Summary The left ventricular ejection fraction is 60 %. Normal LV size. Left ventricular systolic function is normal. No pericardial effusion. Structurally normal valves. Ordering Physician: Amado Salamanca Referring Physician: Danie Perkins chi Performed By: Monica Roberson, JENNIFER, RVT
--- NOTE | 2023-09-06 15:02 | RAD_ITS ---
EXAM: XR CHEST, 2 VIEWS CLINICAL INDICATION: CP TECHNIQUE: Frontal and lateral views of the chest. COMPARISON: No relevant prior studies available. FINDINGS: LUNGS AND PLEURAL SPACES: Unremarkable. No consolidation or edema. No pneumothorax. No effusion. HEART: Unremarkable. Cardiac silhouette not enlarged. MEDIASTINUM: Central airways and mediastinal contour are unremarkable. BONES/JOINTS: Unremarkable. No acute fracture. SOFT TISSUES: Cholecystectomy clips are noted. RAD/Chest PA and Lateral IMPRESSION: No radiographic evidence of acute cardiopulmonary disease. Electronically Signed: Sophia Campa MD at 6:05 EDT ,
== END | disposition home or self-care (01) ==
PROVIDERS: PCP Family Medicine Geriatric Medicine; Referring Provider Family Medicine Geriatric Medicine; Visit Provider Family Medicine Geriatric Medicine
DX: R07.9 Chest pain, unspecified (principal)
CPT/HCPCS: 71046; 93306

== ENCOUNTER → 2024-02-03 | Outpatient (CLI) | payer MEDICARE, MEDICAID, SELFPAY ==
[2024-02-03 11:01] LABS: Absolute Lymphocyte Count 1.29 X10^3/uL (0.83-4.51); Absolute Neutrophil Count 2.2 X10^3/uL (2.0-7.7); Basophil# 0.05 X10^3/uL; Basophil% 1.2 % (0-1); Eosinophil# 0.09 X10^3/uL; Eosinophils% 2.1 % (0-5); Hematocrit 43.3 % (37-47); Hemoglobin 14.1 g/dL (12.0-15.0); Lymphocyte # 1.29 X10^3/ul (0.83-4.51); Lymphocyte % 30.3 % (19-41); Mean Corp Hgb Conc 32.6 g/dL (32-36); Mean Corpuscular Hgb 31.3 pg (27.0-32.0); Mean Platelet Vol. 9.3 fl (6.2-12.0); Monocyte# 0.58 X10^3/uL; Monocyte% 13.6 % (0-10); NRBC Flagged by Analyzer 0 % (0-5); Neutrophil # 2.24 X10^3/uL (2.7-7.7); Neutrophil % 52.6 % (47-70); Platelet Count 279 K/mm3 (150-450); RBC Distribution Width CV 11.9 % (11.6-14.6); RBC Distribution Width SD 42.1 fl (35.1-43.9); Red Blood Count 4.51 M/mm3 (4.2-5.4); White Blood Count 4.3 K/mm3 (4.4-11.0)
[2024-02-03 11:10] LABS: Prothrombin Time (Protime)PT. 13.6 SECONDS (11.7-14.9)
[2024-02-03 12:11] LABS: ALB/GLOB Ratio 0.9 RATIO (0.9-2.4); AST(SGOT) 18 U/L (15-37); Alanine Aminotransfer ALT/SGPT 18 U/L (13-56); Albumin, Serum 3.4 g/dL (3.2-5.0); Alkaline Phosphatase 139 U/L (45-117); Anion Gap 6 (5-15); BUN 11 mg/dL (7-18); BUN/Creat Ratio 10.2 RATIO (10-20); Calcium,Total 8.8 mg/dL (8.5-10.1); Chloride 113 mmol/L (98-107); Creatinine, Serum 1.08 mg/dL (0.55-1.02); EST Glomerular Filtration Rate 58 mL/min (>60); Est Glom Filt Rate - Afr Amer 70 mL/min (>60); Globulin 3.9 g/dL (2.2-4.2); Glucose 95 mg/dL (74-106); Potassium 3.8 mmol/L (3.5-5.1); Protein, Total 7.3 g/dL (6.4-8.2); Sodium Level 141 mmol/L (136-145)
== END | disposition home or self-care (01) ==
LOC: LAB.FUTURE 10:33
PROVIDERS: PCP Family Medicine Geriatric Medicine; Visit Provider Family Medicine Geriatric Medicine
DX: E87.6 Hypokalemia (principal); M79.604 Pain in right leg; E78.5 Hyperlipidemia, unspecified; R73.9 Hyperglycemia, unspecified
CPT/HCPCS: 36415; 80053; 82306; 84443; 85025; 85610; 85730

== ENCOUNTER → 2024-02-03 | Outpatient (CLI) | payer MEDICARE, MEDICAID, SELFPAY ==
--- NOTE | 2024-02-03 10:15 | VDLE_ITS ---
Reason For Study: RLE Pain RIGHT LEFT GSV is normal. CFV is compressible, spontaneous, phasic, CFV is compressible, spontaneous, phasic, competent, and demonstrates normal competent and demonstrates normal augmentation. augmentation. FV is compressible, spontaneous, phasic, competent and demonstrates normal augmentation. POP V is compressible, phasic, and INCOMPETENT for greater than 1.0 second. T/P Trunk is compressible. PTV is compressible. RT PerV is compressible. Procedure This is a venous duplex using B-mode, color flow and spectral Doppler. Exam performed in department. The exam was diagnostic. A preliminary report was called and/or faxed to Dr. Perkins office. VL/Venous Duplex US, Unilateral Interpretation Summary Deep veins of the right lower extremity are patent and compressible segmentally . There is no evidence of right lower extremity deep vein thrombosis. The right popliteal vei n is incompetent. The right common femoral vein and femoral vein are competent. The right great saphe nous vein appears patent and compressible segmentally. The left common femoral vein is patent and compressible . Ordering Physician: Danie Perkins Chi Referring Physician: Danie Perkins Chi Performed By: Juan José Aaron RVT
== END | disposition home or self-care (01) ==
LOC: CVS 10:13
PROVIDERS: PCP Family Medicine Geriatric Medicine; Referring Provider Family Medicine Geriatric Medicine; Visit Provider Family Medicine Geriatric Medicine
DX: M25.512 Pain in left shoulder (principal); M19.012 Primary osteoarthritis, left shoulder; M75.102 Unspecified rotator cuff tear or rupture of left shoulder, not specified as traumatic; S80.11XA Contusion of right lower leg, initial encounter; M79.604 Pain in right leg
CPT/HCPCS: 93971

== ENCOUNTER → 2024-04-04 | Outpatient (CLI) | payer MEDICARE, MEDICAID, SELFPAY ==
[2024-04-04 16:37] LABS: Absolute Lymphocyte Count 1.65 X10^3/uL (0.83-4.51); Basophil# 0.11 X10^3/uL; Basophil% 1.3 % (0-1); Eosinophil# 0.18 X10^3/uL; Eosinophils% 2.1 % (0-5); Hematocrit 42.9 % (37-47); Hemoglobin 14.5 g/dL (12.0-15.0); Lymphocyte # 1.65 X10^3/ul (0.83-4.51); Lymphocyte % 19.1 % (19-41); Mean Corp Hgb Conc 33.8 g/dL (32-36); Mean Corpuscular Volume 94.7 fL (81-99); Mean Platelet Vol. 9.6 fl (6.2-12.0); Monocyte# 0.62 X10^3/uL; Monocyte% 7.2 % (0-10); NRBC Flagged by Analyzer 0 % (0-5); Neutrophil # 6.03 X10^3/uL (2.7-7.7); Neutrophil % 69.7 % (47-70); Platelet Count 311 K/mm3 (150-450); RBC Distribution Width SD 44.3 fl (35.1-43.9); Red Blood Count 4.53 M/mm3 (4.2-5.4); White Blood Count 8.6 K/mm3 (4.4-11.0)
[2024-04-04 17:23] LABS: ALB/GLOB Ratio 0.8 RATIO (0.9-2.4); AST(SGOT) 19 U/L (15-37); Alanine Aminotransfer ALT/SGPT 20 U/L (13-56); Alkaline Phosphatase 132 U/L (45-117); Anion Gap 8 (5-15); BUN 18 mg/dL (7-18); BUN/Creat Ratio 15.3 RATIO (10-20); Calcium,Total 8.3 mg/dL (8.5-10.1); Chloride 111 mmol/L (98-107); Cholesterol 180 mg/dL (200); Creatinine, Serum 1.18 mg/dL (0.55-1.02); EST Glomerular Filtration Rate 52 mL/min (>60); Est Glom Filt Rate - Afr Amer 63 mL/min (>60); Glucose 160 mg/dL (74-106); High Density Lipoprotein 62 mg/dL; Potassium 3.8 mmol/L (3.5-5.1); Sodium Level 138 mmol/L (136-145); Triglycerides 220 mg/dL; Very Low Density Lipoprotein 44 mg/dL (5-40)
== END | disposition home or self-care (01) ==
LOC: POLAB3 16:13
PROVIDERS: PCP Family Medicine Geriatric Medicine; Visit Provider Family Medicine Geriatric Medicine
DX: E87.6 Hypokalemia (principal); E78.5 Hyperlipidemia, unspecified; I10 Essential (primary) hypertension
CPT/HCPCS: 36415; 80053; 80061; 84443; 85025

== ENCOUNTER → 2024-06-12 | Outpatient (CLI) | payer MEDICARE, MEDICAID, SELFPAY ==
--- NOTE | 2024-06-12 12:35 | CT_ITS ---
PROCEDURE: CTA ABD/PELVIS W/WO CONTRAST REASON FOR EXAM: Abdominal pain. Possible omental infarction. TECHNIQUE: CTA imaging of the abdomen and pelvis with intravenous contrast. 3D reconstructions. IV CONTRAST: 100 cc of Isovue 370. COMPARISON: None. FINDINGS: Aorta: Abdominal aorta is normal in size. No significant atherosclerotic plaque. No evidence of aneurysm or dissection. Iliac Arteries: Iliac arteries are normal in size with no significant plaque or stenosis. Celiac: Normal. SMA: Normal. RAKESH : Normal. Right Renal: Normal. Left Renal: Normal. Other Findings: The patient is status post cholecystectomy. Fatty infiltration of the liver. Bilateral tubal ligation clips are seen. Small hiatal hernia. The visualized abdominal and pelvic viscera are unremarkable. No ascites or lymphadenopathy. UBone windows are unremarkable. CT/CTA Abd/Pelvis W/WO Contrast IMPRESSION: Unremarkable abdominal aorta and major visceral branches. Fatty infiltration of the liver. Status post cholecystectomy. One or more dose reduction techniques were used (e.g., Automated exposure contr ol, adjustment of the mA and/or kV according to patient size, use of iterative reconstruction technique). Reading Location: [place] [id number]
[2024-06-12 12:41] LABS: Absolute Lymphocyte Count 1.33 X10^3/uL (0.83-4.51); Absolute Neutrophil Count 3.2 X10^3/uL (2.0-7.7); Basophil# 0.05 X10^3/uL; Basophil% 0.9 % (0-1); Eosinophil# 0.07 X10^3/uL; Eosinophils% 1.3 % (0-5); Hematocrit 41.3 % (37-47); Hemoglobin 14.2 g/dL (12.0-15.0); Lymphocyte # 1.33 X10^3/ul (0.83-4.51); Lymphocyte % 24.7 % (19-41); Mean Corp Hgb Conc 34.4 g/dL (32-36); Mean Corpuscular Hgb 31.9 pg (27.0-32.0); Mean Corpuscular Volume 92.8 fL (81-99); Mean Platelet Vol. 9.4 fl (6.2-12.0); Monocyte# 0.69 X10^3/uL; Monocyte% 12.8 % (0-10); NRBC Flagged by Analyzer 0 % (0-5); Neutrophil # 3.23 X10^3/uL (2.7-7.7); Neutrophil % 60.1 % (47-70); Platelet Count 306 K/mm3 (150-450); RBC Distribution Width CV 12.8 % (11.6-14.6); Red Blood Count 4.45 M/mm3 (4.2-5.4); White Blood Count 5.4 K/mm3 (4.4-11.0)
[2024-06-12 13:08] LABS: ALB/GLOB Ratio 0.8 RATIO (0.9-2.4); AST(SGOT) 21 U/L (15-37); Alanine Aminotransfer ALT/SGPT 24 U/L (13-56); Albumin, Serum 3.4 g/dL (3.2-5.0); Alkaline Phosphatase 129 U/L (45-117); Anion Gap 6 (5-15); BUN 11 mg/dL (7-18); BUN/Creat Ratio 9.6 RATIO (10-20); Calcium,Total 8.5 mg/dL (8.5-10.1); Chloride 112 mmol/L (98-107); Creatinine, Serum 1.14 mg/dL (0.55-1.02); EST Glomerular Filtration Rate 54 mL/min (>60); Est Glom Filt Rate - Afr Amer 66 mL/min (>60); Globulin 4.2 g/dL (2.2-4.2); Glucose 77 mg/dL (74-106); Potassium 3.8 mmol/L (3.5-5.1); Protein, Total 7.6 g/dL (6.4-8.2); Sodium Level 138 mmol/L (136-145)
[2024-06-12 13:22] LABS: Lactic Acid 1.5 mmol/L (0.4-1.9)
== END | disposition home or self-care (01) ==
PROVIDERS: PCP Family Medicine Geriatric Medicine; Referring Provider Family Medicine Geriatric Medicine; Visit Provider Family Medicine Geriatric Medicine
DX: R10.9 Unspecified abdominal pain (principal); K55.069 Acute infarction of intestine, part and extent unspecified
CPT/HCPCS: 36415; 74174; 80053; 83605; 85025; Q9967

== ENCOUNTER → 2025-04-12 | Outpatient (CLI) | payer MEDICARE, MEDICAID, SELFPAY ==
[2025-04-12 15:31] LABS: Hematocrit 45.0 % (37-47); Hemoglobin 14.8 g/dL (12.0-15.0); Immature Granulocytes Count 0.010 X10^3/uL (0.0-0.0); Mean Corp Hgb Conc 32.9 g/dL (32-36); Mean Corpuscular Volume 92.6 fL (81-99); Mean Platelet Vol. 9.6 fl (6.2-12.0); NRBC Flagged by Analyzer 0 % (0-5); Platelet Count 321 K/mm3 (150-450); RBC Distribution Width CV 13.6 % (11.6-14.6); RBC Distribution Width SD 46.2 fl (35.1-43.9); Red Blood Count 4.86 M/mm3 (4.2-5.4); White Blood Count 4.3 K/mm3 (4.4-11.0)
[2025-04-12 16:16] LABS: AST(SGOT) 34 U/L (<=31); Alanine Aminotransfer ALT/SGPT 26 U/L (<=34); Albumin, Serum 4.2 g/dL (3.5-5.0); Alkaline Phosphatase 131 U/L (35-104); Anion Gap 14 (5-15); BUN 9 mg/dL (4-19); BUN/Creat Ratio 9.1 RATIO (10-20); Calcium,Total 9.0 mg/dL (7.6-11.0); Carbon Dioxide 16.8 mmol/L (21.0-32.0); Chloride 111 mmol/L (98-108); Globulin 3.4 g/dL (2.2-4.2); Glucose 105 mg/dL (70-99); Potassium 4.2 mmol/L (3.3-5.1)
[2025-04-12 17:18] LABS: Magnesium 2.1 mg/dL (1.5-2.2)
--- OUTSIDE RECORDS SUMMARY | 2025-04-12 18:05 | XMS RPT_ITS | CCD ---
Author Organization [facility] Care Team Providers Care [employer] Operator Name Role Phone Danie Perkins Chi Unavailable LISA COTTO Attending Unavaila ble DANIE PERKINS CHI Primary Care Unavailable Neftali Cabral Admitting Unavailable Badeduardo, Neftali Almaraz Attending Unavailable Brian Khan Admitting Unavailabl e Brian Khna Attending Unavailabl e ShookHaritha Admitting Unavailable ShoHaritha powell Attending Unavailable SubitCornelio Admitting Unavailable Subit, Cornelio Cade Attending Unavailable BadNeftali clark Admitting Unavailable BadNeftali clark Attending Unavailable Danie Perkins Chi Primary Care Provider Danie Perkins Chi Primary Care Provider Dr. Danie Perkins Chi Primary Care Provider [phone] Dr. Danie Perkins Chi Referring Provider [phone] Neftali Cabral Attending Provider [phone] Dr. Danie Perkins Chi Primary Care Provider Dr. Danie Perkins Chi Referring Provider Dr. Neftali Cabral Attending Provider Gregorio MUHAMMAD, Charline Primary Care Provider Gregorio MUHAMMAD, Danie Guerra Unavailable Unavailable Gregorio MUHAMMAD, Danie Guerra Primary Care Provider EDDIE ALDANA Attending Unavailab le GREGORIO, DANIE CHI Primary Care Unavailable GREGORIO, DANIE CHI Primary Care Unavailable EDDIE ALDANA Admitting Unavailab EDDIE Suh Referring Unavailab le GREGORIO, DANIE CHI Primary Care Unavailable EDDIE ALDANA Attending Unavailab ana ALDANA, EDDIE LEE Admitting Unavailab EDDIE Suh Referring Unavailab le GREGORIO, DANIE CHI Primary Care Unavailable Gregorio, Dr. Danie Guerra Primary Care Provider [phone] Neftali Cabral Attending Provider [phone] Misha, Dr. Lindsay Referring Provider [phone] ASH JOEL JR. Attending Unavailable ASH JOEL JR. Referring Unavailable GREGORIO, ADNIE-CHI Primary Care Unavailable GREGORIO, DANIE-CHI Primary Care Unavailable Gregorioandre MUHAMMAD, Charline Primary Care Provider Danie Perkins MD, Chi Unavailable Unavailable Gregorio, Dr. Danie Guerra Primary Care Provider [phone] Danie Perkins Chi Referring Provider Dr. Ash Joel Attending Provider [phone] Afua Snowden Attending Provider Unavailable Dr. Neftali Cabral Attending Provider [phone] Raydeepa, Dr. Lindsay Referring Provider [phone] Jazmin, Dr. Patel Attending Provider CARLYN SCHULTZ Referring Unavailable CARLYN SCHULTZ Attending Unavailable GREGORIO, DANIE-CHI Primary Care Unavailable Dr. Danie Perkins Chi Primary Care Provider [phone] Danie Perkins Chi Referring Provider [facility] ORGANIC PREPARATION ANALYST, ORGANIC PREPARATION ANALYST-Prosper Bryan Attending Provider Dr. Neftali Cabral Attending Provider [phone] Neftali Cabral Referring Provider Dr. Philip Jaimes Attending Provider Gregorio MUHAMMAD, Danie-Chi Primary Care Provider Danie Perkins MD, Chi Unavailable Unavailable KEVIN KNIGHT Attending Unavailable GREGORIO, DANIE CHI Primary Care Unavailable SESAR HELLER Attending Unavailable GREGORIO, DANIE CHI Primary Care Unavailable LITO, SOPHIA Referring Unavailable LITO SOPHIA Attending Unavailable GREGORIO, DANIE CHI Primary Care Unavailable LITO, SOPHIA Referring Unavailable LITO, SOPHIA Attending Unavailable GREGORIO, DANIE CHI Primary Care Unavailable GREGORIO, DANIE CHI Primary Care Unavailable ROMULOISHANKAR, CHEYENNE C Referring Unavailable JULIAN GUNNIN C Attending Unavailable Gregorio , Dr. Danie Guerra Primary Care Provider Dr. Danie Perkins MD, Chi Referring Provider [phone] Misha MUHAMMAD, Dr. Lindsay Attending Provider GREGORIO, DANIE CHI Primary Care Unavailable LITO, SOPHIA Referring Unavailable LITO, SOPHIA Attending Unavailable LITO, SOPHIA Referring Unavailable LITO, SOPHIA Attending Unavailable GREGORIO, DANIE-CHI Primary Care Unavailable GREGORIO, DANIE-CHI Primary Care Unavailable ABIEL ALDRIDGE Attending Unavailable LITO, SOPHIA Referring Unavailable LITO, SOPHIA Attending Unavailable GREGORIO, DANIE-CHI Primary Care Unavailable SELF, SELF Referring Unavailable LITO, SOPHIA Attending Unavailable GREGORIO, DANIE-CHI Primary Care Unavailable SELF, SELF Referring Unavailable Karlur , Dr. Lindsay Referring Provider [phone] Dr. Danie Perkins MD, Chi Referring Provider [phone] Neftali Cabral Attending Unavailable Neftali Cabral Referring Unavailable Gregorio, Danie Chi Primary Care Unavailable Neftali Cabral Attending Unavailable RaydourNeftali Referring Unavailable Gregorio, Danie Chi Primary Care Unavailable Gregorio, Danie Chi Primary Care Unavailable Gregorio, Danie Chi Attending Unavailable Gregorio, Danie Chi Referring Unavailable Gregorio, Danie Chi Primary Care Unavailable Gregorio, Danie Chi Attending Unavailable Philip Jaimes Attending Unavailable Gregorio, Danie Chi Referring Unavailable Gregorio, Danie Chi Primary Care Unavailable Mable Larios Attending Unavailable Gregorio, Danie Chi Referring Unavailable Gregorio, Danie Chi Primary Care Unavailable Livier Barrios Attending Unavailable Gregorio, Danie Chi Referring Unavailable Gregorio, Danie Chi Primary Care Unavailable Allergies Allergy Classification Reported Allergen(s) Allergy Type Date of Onset Reaction(s) Facility (12 sources) ciprofloxacin; Translations: [CIPROFLOXACIN (MIXTURE)] Drug Allergy 03-17-20 16 [facility] (20 sources) guaiFENesin / phenylephrine; Translations: [PHENYLEPHRINE-GUAI FENESIN] Drug Allergy 03-17-20 16 [facility] (19 sources) Ciprofloxacin Drug Allergy 12-27-19 10 Other [facility] Comment on above: SEIZURE (10 sources) Ciprofloxacin; Translations: [ciprofloxacin HCl] Drug Allergy 12-31-19 22 Other [facility] Comment on above: seizure went to ER (13 sources) guaiFENesin; Translations: [GUAIFENESIN] Drug Allergy 03-10-20 14 Other (See Comments) [facility] Work Phone: (10 sources) Phenylephrine; Translations: [phenylephrine HCl] Drug Allergy 12-31-19 22 Other, Hives [facility] (10 sources) Phenylpropanolamine ; Translations: [phenylpropanolamin e HCl] Drug Allergy 12-31-19 22 Other [facility] (10 sources) Pseudoephedrine Drug Allergy 12-27-19 10 [facility] (9 sources) Adhesive agent; Translations: [ADHESIVE] Propensity to adverse reactions to drug 03-17-20 Unknown [facility] Comment on above: SKIN BURN (4 sources) Phenylephrine; Translations: [PHENYLEPHRINE] Drug Allergy 03-10-20 14 Other (See Comments) [facility] (4 sources) Phenylpropanolamine ; Translations: [PHENYLPROPANOLAMIN E] Drug Allergy 03-10-20 14 Other (See Comments) [facility] (1 source) Adhesive agent Drug allergy (disorder) 01-17-20 [facility] Repository (1 source) Ciprofloxacin Drug Allergy 01-17-20 [facility] Repository (1 source) guaiFENesin Drug Allergy 01-17-20 [facility] Repository Medications Current Medications Medication Drug Class(es) Dates Sig (Normalized) Sig (Original) [id number] 200 actuat albuterol 0.09 mg/actuat metered dose inhaler (1 source) beta2-Adrenergic Agonist Start: 03-31-2022 albuterol 90 mcg/actuation inhaler baclofen 10 mg oral tablet (20 sources) gamma-Aminobutyri c Acid-ergic Agonist Start: 11-06-2024 take 0.5-1 tablets by mouth three times daily as needed for pain Baclofen 10 mg tablet Active 10 mg PO THREE TIMES A DAY as needed for muscle spasm/muscle pain 90 7 November 06, 2024 1:30pm Take 1/2 to 1 tablet orally three times daily as needed for muscle pain/spasm Start: 08-26-2023 End: 11-06-2024 take 1 tablet by mouth twice daily as needed for pain Baclofen 10 mg tablet Discontinued 10 mg PO TWICE A DAY as needed for muscle spasm/muscle pain 60 7 February 21, 2024 1:31pm November 06, 2024 1:31pm Start: 09-09-2022 End: 11-18-2022 take 1 tablet by mouth at bedtime Baclofen 10 mg tablet Discontinued 10 mg PO AT BEDTIME September 09, 2022 3:24pm November 18, 2022 10:01am Muscle spasm/pain Start: 04-23-2022 End: 05-23-2022 take 1 tablet by mouth three times daily baclofen (LIORESAL) 10 MG tablet Take 1 (one) tablet (10 mg total) by mouth 3 (three) times a day . 90 tablet 0 04/23/2022 05/23/2022 Active Start: 12-30-2021 End: 11-18-2022 take 1 tablet by mouth twice daily as needed for pain Baclofen 10 mg tablet Discontinued 10 mg PO TWICE A DAY as needed for Muscle spasm/pain 60 4 December 30, 2021 12:00am September 09, 2022 1:08pm take 1 tablet by yaron three times daily baclofen (LIORESAL) 10 MG tablet Take 10 mg by mouth 3 (three) times a day. 0 Active busPIRone hydrochloride 30 mg oral tablet (20 sources) Start: 09-09-2022 take 1 tablet by mouth once daily Buspirone 30 mg tablet Active 30 mg PO DAILY September 09, 2022 1:05pm Start: 06-15-2022 End: 09-09-2022 take 1 tablet by mouth three times daily Buspirone 30 mg tablet Discontinued 30 mg PO THREE TIMES A DAY June 15, 2022 1:00am September 09, 2022 1:08pm Start: 03-28-2022 busPIRone (BUS PAR) 30 MG tablet take 1.5 tablets by mouth twice daily busPIRone 10 MG Tab Take 1.5 tablets by mouth 2 times daily. Active calcium carbonate 625 mg / cholecalciferol 125 unt oral tablet (1 source) Vitamin D Start: 04-22-2022 End: 04-22-2023 take 1 tablet by mouth once daily at breakfast calcium-vitamin D (OS-MARCELA +D) 250 mg-3.125 mcg (125 unit) Tab Take 1 (one) tablet by mouth daily with breakfast Start: 04/22/22. 90 tablet 3 04/22/2022 04/22/2023 Active diclofenac sodium 0.01 mg/mg topical gel (8 sources) Nonsteroidal Anti-inflammatory Drug Start: 08-26-2023 End: 01-16-2025 Diclofenac Sodium (Arthritis Pain (Diclofenac)) 1 % gel Active 4 g TOPICAL .QID as needed for muscle pain 100 6 January 16, 2025 11:44am ergocalciferol 1.25 mg oral capsule (1 source) Provitamin D2 Compound Start: 09-19-2024 take 1 capsule by mouth every week Ergocalciferol 1.25 MG (71522 UT) capsule Take 1 capsule by mouth once a week for 8 doses. 4 capsule 1 09/19/2024 Active escitalopram 20 mg oral tablet (2 sources) Serotonin Reuptake Inhibitor Start: 04-23-2022 End: 05-23-2022 take 1 tablet by mouth once daily escitalopram oxalate (LEXAPRO) 20 MG tablet Take 1 (one) tablet (20 mg total) by mouth daily . 30 tablet 0 04/23/2022 05/23/2022 Active End: 05-07-2022 take 1 tablet by mouth once daily escitalopram 5 MG tablet Take 5 mg by mouth daily. 0 05/07/2022 Discontinued fluvoxaMINE maleate 100 mg oral tablet (11 sources) Serotonin Reuptake Inhibitor Start: 02-08-2023 take 1 tablet by mouth at bedtime Fluvoxamine 100 mg tablet Active 100 mg PO AT BEDTIME June 07, 2023 1:00am folic acid 1 mg oral tablet (12 sources) Start: 10-26-2023 End: 08-31-2024 take 1 tablet by mouth once daily Folic acid 1 MG tablet Take 1 tablet by mouth daily. 90 tablet 3 08/31/2024 Active Start: 04-21-2022 End: 04-22-2023 take 1 tablet by mouth once daily Folic acid 1 MG tablet Take 1 tablet by mouth daily. 90 tablet 3 04/22/2023 Active furosemide 40 mg oral tablet (1 source) Loop Diuretic Start: 01-16-2025 take 1 tablet by mouth once daily in the morning Furosemide (Lasix) 40 mg tablet Active 40 mg PO EVERY MORNING 30 0 January 16, 2025 12:00am hydroxychloroquine sulfate 200 mg oral tablet (20 sources) Antimalarial, Antirheumatic Agent Start: 10-26-2023 End: 08-31-2024 take 1.5 tablets by mouth once daily Hydroxychloroquine 200 MG tablet Take 1.5 tablets by mouth daily. 135 tablet 2 08/31/2024 Active Start: 04-22-2023 take 1.5 tablets by mouth once daily Hydroxychloroquine 200 MG tablet Take 1.5 tablets by mouth daily. 135 tablet 2 04/22/2023 Active Start: 08-10-2022 take 1 tablet by yaron th once daily Hydroxychloroquine (Plaquenil) 200 mg tablet Active 200 mg PO DAILY August 10, 2022 12:00am Start: 05-07-2022 End: 04-22-2023 take 2 tablets by mouth once daily Hydroxychloroquine 200 MG tablet Take 2 tablets by mouth daily. 180 tablet 3 10/15/2022 04/22/2023 Discontinued (Reorder) Start: 07-14-2016 End: 05-07-2022 hydrOXYchloroQUINE (PLAQUENI L) 200 mg tablet ibuprofen 800 mg oral tablet (1 source) Nonsteroidal Anti-inflammatory Drug Start: 06-23-2019 End: 07-23-2019 take 1 tablet by mouth every six hours as needed ibuprofen (ADVIL,MOTRIN) 800 MG tablet Take 1 (one) tablet (800 mg total) by mouth every 6 (six) hours as needed for pain . 20 tablet 0 06/23/2019 07/23/2019 Active ivermectin 10 mg/ml topical cream (1 source) Antiparasitic, Pediculicide Start: 11-17-2024 Ivermectin (Soolantra) 1 % Cream Indications: Rosacea , Demodex acne Apply to face 1-2 times daily 30 g 3 11/17/2024 Active 24 hr lamoTRIgine 50 mg extended release oral tablet (15 sources) Mood Stabilizer, Anti-epileptic Agent Start: 09-09-2022 take 1 tablet by mouth twice daily Lamotrigine 50 mg tablet extended release 24hr Active 50 mg PO TWICE A DAY September 09, 2022 12:00am Start: 04-21-2022 End: 04-21-2023 take 1 tablet by mouth twice daily Lamotrigine 100 mg tablet Discontinued 100 mg PO TWICE A DAY June 15, 2022 1:00am September 09, 2022 1:02pm take 1 tablet by yaron th once daily lamoTRIgine (LAMICTAL) 100 MG tablet Take 100 mg by mouth daily . 0 Active meclizine hydrochloride 12.5 mg oral tablet (4 sources) Antiemetic take 1 tablet by mouth three times daily as needed for nausea meclizine (ANTIVERT) 12.5 mg tablet Take 12.5 mg by mouth 3 (three) times a day as needed for nausea . 0 Active methotrexate 25 mg/ml injectable solution (14 sources) Folate Analog Metabolic Inhibitor Start: methotrexate 50 MG/2ML Solution injection INJECT 0.6 ML UNDER THE SKIN EVERY 7 DAYS. 12 mL 1 07/18/2024 Active Start: 11-11-2023 Methotrexate S odium (methotrexate, PF,) 25 MG/ML Solution Inject 0.6 mL under the skin every 7 days. 8 mL 3 11/11/2023 Active Start: 04-22-2023 Methotrexate S odium (methotrexate, PF,) 25 MG/ML Solution Inject 0.6 mL under the skin every 7 days. 8 mL 3 04/22/2023 Active Start: 03-08-2023 End: 04-22-2023 methotrexate 2.5 MG tablet T RIVAS 6 TABLETS BY MOUTH EVERY 7 DAYS. 30 tablet 0 03/08/2023 04/22/2023 Discontinued Start: 11-18-2022 End: 06-07-2023 Methotrexate Sodium 2.5 mg t ablet Discontinued 15 mg PO November 18, 2022 12:00am June 07, 2023 2:43pm Start: 11-18-2022 End: 06-07-2023 Methotrexate Sodium Disconti nued 15 MG PO November 18, 2022 12:00am June 07, 2023 2:43pm Start: 10-15-2022 methotrexate 2 .5 MG tablet Take 6 tablets by mouth every 7 days. 30 tablet 3 10/15/2022 Active methylPREDNISolone (1 source) Corticosteroid Start: 12-13-2019 End: 12-20-2019 methylPREDNISolone (MEDROL DOSEPACK) 4 mg tablet follow package directions . 21 tablet 0 12/13/2019 12/20/2019 Active naloxone hydrochloride 40 mg/ml nasal spray (1 source) Opioid Antagonist Start: 04-23-2022 naloxone (NARCAN) 4 mg/actuation [place] Administer 1 spray into one nostril for known or suspected opioid overdose. If patient worsens or does not respond, may repeat in 2-3 minutes. . 2 each 0 04/23/2022 Active naproxen 500 mg oral tablet (7 sources) Nonsteroidal Anti-inflammatory Drug Start: 04-04-2024 take 1 tablet by mouth twice daily naproxen 500 MG tablet Take 1 tablet by mouth 2 times daily. 04/04/2024 Active Start: 09-09-2022 End: 09-09-2022 take 1 tablet by mouth twice daily as needed Naproxen 500 mg tablet Discontinued 500 mg PO TWICE A DAY as needed September 09, 2022 12:00am September 09, 2022 3:24pm nortriptyline 25 mg oral capsule (11 sources) Tricyclic Antidepressant take 1 capsule by mouth at bedtime nortriptyline 25 MG Cap Take 1 capsule by mouth At bedtime. Active QUEtiapine 200 mg oral tablet (20 sources) Atypical Antipsychotic Start: 06-15-19 Quetiapine (Seroquel) 200 mg tablet Active 300 mg PO DAILY June 15, 2022 4:26pm Start: 03-10-2014 End: 06-15-2022 take 1 tablet by mouth once daily Quetiapine (Seroquel) 200 MG tablet Discontinued 200 mg PO DAILY March 10, 2014 1:00am June 15, 2022 4:28pm take 1 tablet by yaron th twice daily QUEtiapine 300 MG Tab Take 1 tablet by mouth 2 times daily. Active rivaroxaban 15 mg oral tablet (17 sources) Factor Xa Inhibitor Start: 03-18-2022 take 1 tablet by mouth once daily at dinner Rivaroxaban (Xarelto) 15 mg tablet Active 15 mg PO DAILY August 10, 2022 12:00am must administer with evening meal sulfamethoxazole 800 mg / trimethoprim 160 mg oral tablet (4 sources) Dihydrofolate Reductase Inhibitor Antibacterial, Sulfonamide Antimicrobial Start: 08-23-2018 take 1 tablet by mouth twice daily sulfamethoxazole -trimethoprim (BACTRIM DS,SEPTRA DS) 800-160 mg per tablet Take 1 (one) tablet by mouth 2 (two) times a day . 20 tablet 0 08/23/2018 Active SUMAtriptan 100 mg oral tablet (20 sources) Serotonin-1b and Serotonin-1d Receptor Agonist Start: 02-25-2022 SUMAtriptan (IMITREX) 100 MG tablet Start: 12-30-2021 End: 11-08-2024 take 1 tablet by mouth every two hours as needed for headache, then take 2 tablets by mouth once daily as needed for headache Sumatriptan Succinate 100 mg tablet Active 0 PO .COMPLEX 9 November 08, 2024 7:29am Take 1 tablet PO every 2 hours as needed for headache up to 2 tablets/day SYRINGE/NEEDLE, DISP, 1 ML 2 5G X 5/8 1 ML Misc (8 sources) Start: 08-31-2024 SYRINGE/NEEDLE , DISP, 1 ML 25G X 5/8 1 ML Misc Once a week for methotrexate 50 Each 08/31/2024 Active Start: 10-26-2023 End: 08-31-2024 SYRINGE/NEEDLE, DISP, 1 ML 2 5G X 5/8 1 ML Misc Once a week for methotrexate 50 Each 10/26/2023 08/31/2024 Discontinued (Reorder) Start: 10-26-2023 SYRINGE/NEEDLE , DISP, 1 ML 25G X 5/8 1 ML Misc Once a week for methotrexate 50 Each 10/26/2023 Active Start: 04-22-2023 SYRINGE/NEEDLE , DISP, 1 ML 25G X 5/8 1 ML Misc Once a week for methotrexate 50 Each 04/22/2023 Active Start: 04-22-2023 SYRINGE/NEEDLE , DISP, 1 ML 25G X 5/8 1 ML Misc Once a week for methotrexate 50 Each 0 04/22/2023 Active topiramate 100 mg oral tablet (20 sources) Anti-epileptic Agent Start: 08-26-2023 End: 11-08-2024 take 1 tablet by mouth three times daily Topiramate (Topamax) 100 mg tablet Active 100 mg PO THREE TIMES A DAY November 08, 2024 7:29am Start: 06-07-2023 End: 08-26-2023 take 3 tablets by mouth three times daily Topiramate (Topamax) 100 mg tablet Discontinued 300 mg PO THREE TIMES A DAY June 07, 2023 2:43pm August 26, 2023 8:26am Start: 04-21-2022 End: 04-21-2023 take 1 tablet by mouth twice daily topiramate (TOPAMAX) 100 MG tablet Take 1 (one) tablet (100 mg total) by mouth 2 (two) times a day . 180 tablet 3 04/21/2022 04/21/2023 Active Start: 03-10-2014 End: 06-07-2023 take 1 tablet by mouth three times daily Topiramate (Topamax) 100 mg tablet Discontinued 100 mg PO THREE TIMES A DAY March 29, 2023 5:24pm June 07, 2023 2:45pm traMADol hydrochloride 50 mg oral tablet (1 source) Opioid Agonist Start: 04-23-2022 take 1 tablet by mouth every six hours as needed for pain and pain, then take 1 tablet by mouth every six hours as needed for pain and pain traMADoL (ULTRAM) 50 mg tablet Indications: Closed displaced fracture of second metatarsal bone of right foot, initial encounter Take 1 (one) tablet (50 mg total) by mouth every 6 (six) hours as needed for pain Take one tablet 50 mg total by mouth every 6 hours as needed for pain . 12 tablet 0 04/23/2022 Active Turmeric Root Extract 750 mg capsule (1 source) Start: 01-16-2025 take 1 capsule by mouth once daily Turmeric Root Extract 750 mg capsule Active 750 mg PO DAILY 30 January 16, 2025 12:00am Completed/Discontinued Medications Medication Drug Class(es) Dates Sig (Normalized) Sig (Original) acetaminophen 325 mg / HYDROcodone bitartrate 5 mg oral tablet (11 sources) Opioid Agonist Start: 01-31-2021 End: 10-15-2022 take 1 tablet by mouth every four hours as needed hydroCODone-acetami nophen 5-325 MG tablet Indications: Pilonidal cyst Take 1 tablet by mouth every 4 hours as needed for up to 3 days. 18 tablet 0 01/31/2021 10/15/2022 Discontinued Start: 03-10-2014 End: 12-30-2021 Hydrocodone-Acetaminophen 1 TABLET tablet Discontinued 1 - 2 {tbl} PO EVERY 6 HOURS NEEDED as needed for Pain 12 0 March 10, 2014 1:00am December 30, 2021 9:50pm causes drowsiness Start: 03-10-2014 End: 12-30-2021 take 1 tablet by mouth every six hours as needed Hydrocodone-Acetaminophen Discontinued 1 - 2 TABLET PO EVERY 6 HOURS NEEDED March 10, 2014 1:00am December 30, 2021 9:50pm causes drowsiness azithromycin 250 mg oral tablet (2 sources) Macrolide Antimicrobial Start: 12-13-2019 End: 12-13-2019 azithromycin (ZITHROMAX) tablet 500 mg Start: 12-13-2019 take 1 tablet by yaron th once daily azithromycin (ZITHROMAX) 250 MG tablet Take 1 (one) tablet (250 mg total) by mouth daily . 4 tablet 0 12/13/2019 Active 12 hr buPROPion hydrochloride 200 mg extended release oral tablet (10 sources) Aminoketone Start: 06-15-2022 End: 09-09-2022 take 1 tablet by mouth once daily Bupropion Hcl 200 mg tablet sustained-release 12 hr Discontinued 200 mg PO DAILY June 15, 2022 1:00am September 09, 2022 1:08pm Start: 03-28-2022 buPROPion (WEL LBUTRIN SR) 200 MG 12 hr tablet Start: 11-29-2009 take 1 tablet by yaron th every twenty-four hours buPROPion (Wellbutrin XL) 150 MG 24 hr tablet Take by mouth . 0 11/29/2009 Active cefTRIAXone 1000 mg injection (1 source) Cephalosporin Antibacterial Start: 08-23-2018 End: 08-23-2018 cefTRIAXone (ROCEPHIN) IVPB 1 g (premix) diazePAM 5 mg oral tablet (9 sources) Benzodiazepine Start: 03-10-2014 End: 12-30-2021 take 7.5 mg by mouth twice daily Diazepam 5 MG tablet Discontinued 7.5 mg PO TWICE A DAY March 10, 2014 1:00am December 30, 2021 9:50pm Start: 03-10-2014 End: 12-30-2021 take 7.5 mg by mouth twice daily Diazepam Discontinued 7.5 MG PO TWICE A DAY March 10, 2014 1:00am December 30, 2021 9:50pm eletriptan 40 mg oral tablet (9 sources) Serotonin-1b and Serotonin-1d Receptor Agonist Start: 03-10-2014 End: 12-30-2021 Eletriptan (Relpax) 40 MG tablet Discontinued 40 mg PO .X1 PRN March 10, 2014 1:00am December 30, 2021 9:51pm eszopiclone 3 mg oral tablet (9 sources) Start: 03-10-2014 End: 12-30-2021 take 1 tablet by mouth at bedtime as needed Eszopiclone (Lunesta) 3 MG tablet Discontinued 3 mg PO AT BEDTIME NEEDED as needed for Insomnia March 10, 2014 1:00am December 30, 2021 1:19pm flurbiprofen 100 mg oral tablet (3 sources) Nonsteroidal Anti-inflammatory Drug End: 10-15-2022 take 1 tablet by mouth three times daily flurbiprofen 100 MG Tab Take 1 tablet by mouth 3 times daily. 0 10/15/2022 Discontinued hydroCHLOROthiazide 12.5 mg / losartan potassium 100 mg oral tablet (1 source) Thiazide Diuretic, Angiotensin 2 Receptor Delicia End: 05-07-2022 losartan-hydrochl orothiazide 100-12.5 MG Tab take 1 tablet by mouth at bedtime.. 0 05/07/2022 Discontinued 1 ml HYDROmorphone hydrochloride 1 mg/ml injection (2 sources) Opioid Agonist Start: 06-23-2019 End: 06-23-2019 HYDROmorphone (DILAUDID) injection 0.5 mg Start: 06-23-2019 End: 06-23-2019 HYDROmorphone (DILAUDID) inj ection 1 mg hydrOXYzine pamoate 50 mg oral capsule (20 sources) Antihistamine Start: 08-10-2022 End: 11-18-2022 take 1 capsule by mouth at bedtime Hydroxyzine Pamoate (Vistaril) 50 mg capsule Discontinued 50 mg PO AT BEDTIME August 10, 2022 12:00am November 18, 2022 10:01am Start: 03-10-2014 End: 05-07-2022 Vistaril Discontinued 50 mg PO NEEDED as needed for Anxiety March 10, 2014 1:00am December 30, 2021 1:20pm hydrOXYzine (VIS TARIL) 25 MG capsule daily as needed. 0 Active hyoscyamine sulfate 0.125 mg sublingual tablet (1 source) End: 05-07-2022 hyoscyamine 0.125 MG Tab SL tablet SL Take 125 mcg by mouth every 4 hours as needed for Cramping. 0 05/07/2022 Discontinued 1 ml ketorolac tromethamine 30 mg/ml injection (1 source) Nonsteroidal Anti-inflammatory Drug, Cyclooxygenase Inhibitor Start: 06-23-2019 End: 06-23-2019 ketorolac (TORADOL) injection 30 mg lidocaine 0.05 mg/mg medicated patch (10 sources) Antiarrhythmic, Amide Local Anesthetic Start: 06-20-2019 End: 06-20-2019 lidocaine (LIDODERM) 1 patch Start: 03-10-2014 End: 12-30-2021 Lidocaine 1 PATCH patch Discontinued 1 NMA TOPICAL DAILY March 10, 2014 1:00am December 30, 2021 9:50pm Start: 03-10-2014 End: 12-30-2021 apply 1 dose topically once daily Lidocaine Discontinued 1 PATCH TOPICAL DAILY March 10, 2014 1:00am December 30, 2021 9:50pm linaclotide 0.072 mg oral capsule (1 source) Guanylate Cyclase-C Agonist End: 05-07-2022 linaCLOtide 72 MCG capsule Take by mouth. 0 05/07/2022 Discontinued methocarbamol 750 mg oral tablet (9 sources) Muscle Relaxant Start: 03-10-2014 End: 12-30-2021 take 1 tablet by mouth three times daily as needed for pain Methocarbamol (Robaxin-750) 750 MG tablet Discontinued 750 mg PO 3 TIMES DAILY NEEDED as needed for Pain March 10, 2014 1:00am December 30, 2021 1:20pm mirtazapine 45 mg oral tablet (20 sources) Start: 08-10-2022 End: 06-07-2023 take 1 tablet by mouth once daily Mirtazapine 45 mg tablet Discontinued 45 mg PO DAILY August 10, 2022 12:00am June 07, 2023 2:43pm Start: 03-10-2014 End: 12-30-2021 take 1 tablet by mouth at bedtime Mirtazapine 15 MG tablet Discontinued 15 mg PO AT BEDTIME March 10, 2014 1:00am December 30, 2021 9:50pm End: 08-31-2024 take 1 tablet by mouth at bedtime mirtazapine 30 MG Tab Take 1 tablet by mouth At bedtime. 08/31/2024 Discontinued omeprazole 20 mg delayed release oral capsule (18 sources) Proton Pump Inhibitor Start: 03-07-2012 End: 12-30-2021 take 1 capsule by mouth once daily Omeprazole 20 MG capsule Discontinued 20 mg PO DAILY March 10, 2014 1:00am December 30, 2021 1:20pm End: 10-15-2022 Omepraz[address] take by mouth.. 0 10/15/2022 Discontinued 2 ml ondansetron 2 mg/ml injection (1 source) Serotonin-3 Receptor Antagonist Start: 06-23-2019 End: 06-23-2019 ondansetron (ZOFRAN) injection 4 mg pantoprazole 40 mg delayed release oral tablet (17 sources) Proton Pump Inhibitor Start: 04-17-2022 End: 11-18-2022 take 1 tablet by mouth once daily Pantoprazole 40 mg tablet,delayed release (DR/EC) Discontinued 40 mg PO DAILY August 10, 2022 12:00am November 18, 2022 10:01am Start: 04-17-2022 End: 05-23-2022 take 1 tablet by mouth twice daily pantoprazole (PROTONIX) 40 MG tablet Take 1 (one) tablet (40 mg total) by mouth 2 (two) times a day . 60 tablet 0 04/23/2022 05/23/2022 Active permethrin 50 mg/ml topical cream (1 source) Pyrethroid Start: 06-02-2018 End: 05-07-2022 permethrin 5 % Cream Apply cream from head to feet, leave on for 8 to 14 hours, then wash with soap/water, repeat application in 14 days 60 g 1 06/02/2018 05/07/2022 Discontinued 1000 ml sodium chloride 9 mg/ml injection (4 sources) Start: 12-13-2019 End: 12-13-2019 sodium chloride 0.9% (NS) bolus 1,000 mL Start: 06-23-2019 End: 06-23-2019 sodium chloride 0.9% (NS) guillermina uady 1,000 mL Start: 08-23-2018 End: 08-23-2018 sodium chloride 0.9% (NS) guillermina uday 1,000 mL Start: 08-23-2018 End: 08-23-2018 sodium chloride (PF) (NS) fl ush 5 mL spironolactone 25 mg oral tablet (1 source) Aldosterone Antagonist End: 05-07-2022 take 1 tablet by mouth once daily spironolactone 25 MG Tab tablet Take 25 mg by mouth daily. 0 05/07/2022 Discontinued traZODone hydrochloride 100 mg oral tablet (20 sources) Serotonin Reuptake Inhibitor Start: 06-07-2023 End: 02-21-2024 Trazodone 100 mg tablet Discontinued 150 mg PO AT BEDTIME June 07, 2023 2:44pm February 21, 2024 1:22pm Start: 06-07-2023 take 150 mg by mouth at bedtim e Trazodone Active 150 MG PO AT BEDTIME June 07, 2023 2:44pm Start: 03-19-2022 End: 06-07-2023 take 1 tablet by mouth at bedtime Trazodone 100 mg tablet Discontinued 100 mg PO AT BEDTIME June 15, 2022 1:00am June 07, 2023 2:45pm triamcinolone acetonide 0.001 mg/mg topical ointment (1 source) Corticosteroid Start: 05-26-2018 End: 05-07-2022 24 hr divalproex sodium 500 mg extended release oral tablet (9 sources) Mood Stabilizer, Anti-epileptic Agent Start: 03-10-2014 End: 12-30-2021 take 1 tablet by mouth once daily Divalproex 500 MG tablet extended release 24 hr Discontinued 500 mg PO DAILY March 10, 2014 1:00am December 30, 2021 1:19pm zaleplon 5 mg oral capsule (20 sources) gamma-Aminobutyric Acid A Receptor Agonist Start: 08-10-2022 End: 11-18-2022 take 1 capsule by mouth at mealtime Zaleplon 5 mg capsule Discontinued 5 mg PO AT BEDTIME September 09, 2022 3:22pm November 18, 2022 10:02am must avoid high-fat meal/food immediately before taking dose Start: 04-23-2022 End: 08-26-2023 take 1 capsule by mouth at mealtime Zaleplon 10 mg capsule Discontinued 10 mg PO AT BEDTIME June 15, 2022 1:00am August 26, 2023 8:19am must avoid high-fat meal/food immediately before taking dose Problems Active Problems Problem Classification Problem Date Documented Da te Episodic/Chronic Anxiety disorders (19 sources) Obsessive-compulsive disorder; Translations: [Obsessive-compulsive disorder, unspecified] 01-01-2010 Chronic Coagulation and hemorrhagic disorders (10 sources) Lupus anticoagulant disorder; Translations: [Lupus anticoagulant syndrome] Chronic Congestive heart failure; nonhypertensive (2 sources) Heart failure, unspecified; Translations: [Heart failure, unspecified] Onset: 5 Chronic E Codes: Fall (1 source) Fall; Translations: [Unspecified fall, initial encounter] Onset: 2 04-20-2022 Episodic Esophageal disorders (10 sources) Gastroesophageal reflux disease; Translations: [Gastro-esophageal reflux disease without esophagitis] 01-01-2010 Chronic Essential hypertension (9 sources) Hypertensive disorder; Translations: [Essential (primary) hypertension] 12-30-2021 Chronic Comment on above: Controlled without m eds Fracture of lower limb (5 sources) Closed fracture of right ankle; Translations: [Other fracture of right lower leg, sequela] Onset: 2 Episodic Headache; including migraine (18 sources) Migraine with aura; Translations: [Migraine with aura, not intractable, without status migrainosus] Onset: 5 Chronic Headache; including migraine (2 sources) Headache; including migraine; Translations: [Headache, unspecified] Onset: 4 Inflammation; infection of eye (except that caused by tuberculosis or sexually transmitteddisease) (9 sources) Optic neuritis; Translations: [Unspecified optic neuritis] 05-25-2013 Chronic Malaise and fatigue (19 sources) Fatigue; Translations: [Other fatigue] Onset: 5 Episodic Multiple sclerosis (5 sources) Multiple sclerosis; Translations: [Multiple sclerosis] 08-17-2022 Chronic Nonspecific chest pain (8 sources) Atypical chest pain; Translations: [Chest pain] 04-22-2023 Episodic Osteoarthritis (10 sources) Arthritis; Translations: [Unspecified osteoarthritis, unspecified site] 01-01-2010 Chronic Other aftercare (5 sources) Taking high risk medication; Translations: [Other termite inspector (current) drug therapy] Episodic Other aftercare (2 sources) Encounter for follow-up examination after completed treatment for conditions other than malignant neoplasm; Translations: [Encounter for follow-up examination after completed treatment for conditions other than malignant neoplasm] Onset: 3 Episodic Other aftercare (2 sources) Other detention (current) drug therapy; Translations: [Other termite inspector (current) drug therapy] Onset: 5 Episodic Other bone disease and musculoskeletal deformities (3 sources) Disorder of bone; Translations: [Disorder of bone, unspecified] Episodic Other bone disease and musculoskeletal deformities (1 source) Osteopenia; Translations: [Other specified disorders of bone density and structure, unspecified site] 08-31-2024 Episodic Other circulatory disease (9 sources) Mixed collagen vascular disease; 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] 05-25-2013 Chronic Other connective tissue disease (1 source) Hand pain Episodic Other connective tissue disease (1 source) Tendinitis; Translations: [Tendonitis] Episodic Other connective tissue disease (20 sources) Fibromyalgia; Translations: [Fibromyalgia] 01-01-2010 Episodic Other connective tissue disease (7 sources) Fibromyalgia; Translations: [Myalgia and myositis, unspecified] Onset: 5 Episodic Other connective tissue disease (3 sources) Adhesive capsulitis of left shoulder; Translations: [Adhesive capsulitis of shoulder] Onset: 3 Episodic Other connective tissue disease (2 sources) Swelling of right lower limb; Translations: [Other specified soft tissue disorders] 08-31-2024 Episodic Other connective tissue disease (2 sources) Other specified soft tissue disorders; Translations: [Other specified soft tissue disorders] Onset: 5 Episodic Other connective tissue disease (1 source) Other specified systemic involvement of connective tissue; Translations: [Other specified systemic involvement of connective tissue] Onset: 5 Episodic Other diseases of kidney and ureters (9 sources) Renal impairment; Translations: [Disorder of kidney and ureter, unspecified] 01-08-2022 Episodic Other gastrointestinal disorders (5 sources) Abnormal feces; Translations: [Other fecal abnormalities] 10-14-2022 Episodic Other gastrointestinal disorders (1 source) Other fecal abnormalities; Translations: [Abnormal feces] 10-14-2022 Episodic Other inflammatory condition of skin (1 source) Rosacea; Translations: [Rosacea, unspecified] 11-17-2024 Chronic Other injuries and conditions due to external causes (2 sources) Other injury of unspecified body region, initial encounter; Translations: [Other injury of unspecified body region, initial encounter] Onset: 3 Episodic Other lower respiratory disease (2 sources) Cough; Translations: [Cough, unspecified type] 12-21-2023 Episodic Other lower respiratory disease (2 sources) Dyspnea; Translations: [Shortness of breath] 08-31-2024 Episodic Other lower respiratory disease (2 sources) Shortness of breath; Translations: [Shortness of breath] Onset: Episodic Other nervous system disorders (1 source) Paresthesia; Translations: [Paresthesia of skin] 08-31-2024 Episodic Other non-traumatic joint disorders (1 source) Pain of left shoulder joint; Translations: [Pain in left shoulder] Episodic Other non-traumatic joint disorders (1 source) Bilateral pain of joint of hands; Translations: [Pain in joints of right hand] 10-15-2022 Episodic Other non-traumatic joint disorders (2 sources) Pain in left shoulder; Translations: [Left shoulder pain] 02-08-2024 Episodic Other non-traumatic joint disorders (1 source) Pain in unspecified joint; Translations: [Pain in unspecified joint] Onset: 5 Episodic Other non-traumatic joint disorders (3 sources) Pain in left knee; Translations: [Left knee pain] Onset: 6 03-17-2016 Other nutritional; endocrine; and metabolic disorders (4 sources) Hypomagnesemia; Translations: [Hypomagnesemia] 08-26-2023 Chronic Other nutritional; endocrine; and metabolic disorders (1 source) Hypomagnesemia; Translations: [Hypomagnesemia] Onset: Chronic Other nutritional; endocrine; and metabolic disorders (1 source) Weight increased; Translations: [Abnormal weight gain] 08-31-2024 Episodic Other nutritional; endocrine; and metabolic disorders (2 sources) Abnormal weight gain; Translations: [Abnormal weight gain] Onset: Episodic Other skin disorders (2 sources) Eruption; Translations: [Rash and other nonspecific skin eruption] 08-31-2024 Episodic Other skin disorders (1 source) Demodex acne; Translations: [Other acne] 11-17-2024 Episodic Trini-; endo-; and myocarditis; cardiomyopathy (except that caused by tuberculosis or sexually transmitted disease) (8 sources) Pericardial effusion; Translations: [Pericardial effusion] Onset: 5 11-18-2022 Episodic Pneumonia (except that caused by tuberculosis or sexually transmitted disease) (1 source) Pneumonitis; Translations: [Acute pneumonitis] Episodic Pulmonary heart disease (2 sources) Cor pulmonale; Translations: [Other specified pulmonary heart diseases] 10-15-2022 Chronic Residual codes; unclassified (1 source) Altered mental status; Translations: [Altered mental status, unspecified] Onset: 2 04-21-2022 Episodic Residual codes; unclassified (2 sources) At risk of osteoporosis; Translations: [Other specified personal risk factors, not elsewhere classified] 04-22-2023 Episodic Syncope (7 sources) Syncope and collapse; Translations: [Syncope and collapse] 09-09-2022 Episodic Systemic lupus erythematosus and connective tissue disorders (20 sources) Connective tissue disease overlap syndrome; Translations: [Other overlap syndromes] Onset: 5 Chronic Unclassified (2 sources) Post-op Onset: 3 Unclassified (1 source) Other specified systemic involvement of connective tissue; Translations: [Other specified systemic involvement of connective tissue] Onset: 5 Urinary tract infections (1 source) Pyelonephritis; Translations: [Pyelonephritis] Episodic Past or Other Problems Problem Classification Problem Date Documented Da te Episodic/Chronic Abdominal pain (1 source) Unspecified abdominal pain; Translations: [Unspecified abdominal pain] Onset: 5 Episodic Fluid and electrolyte disorders (8 sources) Hypokalemia; Translations: [Hypokalemia] Onset: 5 10-13-2022 Episodic Joint disorders and dislocations; trauma-related (8 sources) Subluxation of patellofemoral joint; Translations: [Unspecified subluxation of left patella, initial encounter] Onset: 6 03-17-2016 Episodic Other aftercare (10 sources) Patient encounter status; Translations: [Other detention (current) drug therapy] Onset: 2 11-10-2011 Episodic Other bone disease and musculoskeletal deformities (2 sources) Other specified disorders of bone density and structure, multiple sites; Translations: [Other specified disorders of bone density and structure, multiple sites] Onset: 4 Episodic Other non-traumatic joint disorders (5 sources) Pain in left knee; Translations: [Pain in joint, lower leg] Onset: 6 03-17-2016 Episodic Other screening for suspected conditions (not mental disorders or infectious disease) (8 sources) Electrocardiogram abnormal; Translations: [Abnormal electrocardiogram [ECG] [EKG]] Onset: 2 09-09-2022 Episodic Comment on above: Nonspecific ST abnor mality, sinus tachycardia per EKG done at [facility] Peripheral and visceral atherosclerosis (2 sources) Acute infarction of intestine, part and extent unspecified; Translations: [Acute infarction of intestine, part and extent unspecified] Onset: 5 Episodic Phlebitis; thrombophlebitis and thromboembolism (5 sources) H/O: Deep vein thrombosis; Translations: [Personal history of other venous thrombosis and embolism] Onset: 3 09-09-2022 Episodic Comment on above: right and left leg a nd both lungs Pulmonary heart disease (7 sources) H/O: pulmonary embolus; Translations: [Personal history of pulmonary embolism] Onset: 3 09-09-2022 Episodic Comment on above: On Xarelto 15 mg beverly ly Residual codes; unclassified (2 sources) Other specified personal risk factors, not elsewhere classified; Translations: [Other specified personal risk factors, not elsewhere classified] Onset: 4 Episodic Spondylosis; intervertebral disc disorders; other back problems (1 source) Acute thoracic back pain; Translations: [Pain in thoracic spine] Onset: 2 Resolved: 2 04-20-2022 Episodic Results Test Name Value Interpretation Reference Range Facility Neurology Visit Reporton Neurology Visit Report [facility] [address], [address] [place] [address] OFFICE VISIT Date of Service: 01/16/25 MR#: [id number] Acct: [id number] Name: BRIANA HARRIS YUDITH Rep #: [id number] : 1975 Provider: Dr. Neftali marin MD Age/Sex: 49/F Location: [facility] Status: Signed with Addenda ADDENDUM by Dr. Neftali Cabral MD on 02/20/25 at 1622 Addendum Addendum (02/20/2025): Furosemide has been effective in reducing the patient's lower extremity edema and she wishes to continue this medication. Furosemide 40 mg daily will be continued. 02/20/251621 Date Neftali Cabral MD cc: * Signed HPI HPI Chief Complaint: Details: Interim History: Briana returns for follow-up visit. She has a history of right lower extremity DVT and pulmonary emboli in 2012 (treated with Xarelto for a period of time). She had another occurrence of left lower extremity DVT and was subsequently found to have a positive lupus anticoagulant and Xarelto was resumed. Since 2006, she has had various fluctuating and transient symptoms including bilateral eye blurring of vision/transient vision loss, memory difficulty, disequilibrium, numbness in the toes bilaterally, burning sensation over the right anterior thigh, heaviness and vague numbness in her legs and urinary urgency and frequency. In 2014, she had a transient period of prominent heaviness and weakness in the legs that resolved. In 2023, she reported a feeling of heaviness in the arms and legs, fatigue and tingling in the hands and feet. She had an occasional shuffling gait. Her dose of quetiapine was subsequently reduced back to 300mg daily and she no longer has shuffling. Baclofen is of benefit for her musculoskeletal pain; she generally takes this at night due to a side effect of some sedation. She has fibromyalgia. She has had myalgias and arthralgias and edema. She has had pain in the elbows, left hand, left shoulder, knees, ankles and calves. She sees a gear and spline grinder for mixed connective tissue disease; she takes hydroxychloroquine and methotrexate. She did not tolerate folic acid. She has had low back pain. She had neck pain in the past. She had prior right knee surgery. She had previously seen a oil painter; lumbar radiofrequency lesioning, facet blocks and epidural steroid injections were not of benefit. She saw another oil painter, Dr. Raines, and had lumbar injections that were of benefit; she no longer sees a oil painter. A three day course of IV Solu-Medrol in April 2016 was of benefit for her mixed connective tissue disease symptoms. Since 2021, she has had occasional falls. She had a right foot fracture in 2021. Since her last visit in October 2024 she has developed increased pain in the hips and knees and ankles and also increased bilateral lower extremity swelling. Her headaches had diminished in frequency and severity with the use of topiramate. She has had headaches about 3 to 4 days per week. Sumatriptan is of benefit. She has had left visual field scintillations associated with her headaches. She no longer takes Aleve. She sees a psychiatrist. She takes quetiapine, fluvoxamine, lamotrigine ER, and buspirone for depression and obsessive-compulsive disorder. She takes trazodone for insomnia. She has taken omeprazole as needed for dyspepsia. Her pruritus resolved and she no longer takes hydroxyzine. She had a syncopal episode in July 2016 and was evaluated in the emergency room and was found to have a low potassium level; this was treated. She has had another occurrence of hypokalemia (J anuary 2022) and has also had hypomagnesemia and these have been treated with potassium and magnesium supplementation. She had a syncopal episode in May 2023 and was found to have a low potassium and this was treated; she was also given IV fluids. B12 1500 mcg IM injections have been of benefit for her fatigue. She has fatigue presently. Zembrace and a Toradol injection were of transient benefit for her headaches. Toradol tablets were not of significant benefit. Relpax and Lidoderm (for back pain) were of benefit but were not covered on her insurance plan without prior authorization. She previously took diazepam, nortriptyline, escitalopram, mirtazapine, bupropion, ondansetron, nabumetone and paroxetine. Zomig, levetiracetam, Fioricet, Vicodin, flurbiprofen, sulindac and Percocet were not well tolerated. Amitriptyline, meloxicam, cyclobenzaprine, rizatriptan, tramadol, Indocin, Daypro, methocarbamol, divalproex DR for headaches, gabapentin, pregabalin and naproxen were not of benefit. Diclofenac gel and lidocaine ointment were of benefit for her musculoskeletal pain, she no longer uses lidocaine ointment. She was unable to obtain diclofenac gel recently. Physical Exam: Neuro: the patient (more content not included)... Normal [facility] Neurology Visit Reporton Neurology Visit Report [facility] [address], [address] [place] [address] OFFICE VISIT Date of Service: 11/06/24 MR#: [id number] Acct: [id number] Name: BRIANA HARRIS YUDITH Rep #: [id number] : 1975 Provider: Dr. Neftali marin MD Age/Sex: 49/F Location: [facility] [place]. Status: Signed HPI [facility] Chief Complaint: Details: Interim History: Briana returns for follow-up visit. She has a history of right lower extremity DVT and pulmonary emboli in 2012 (treated with Xarelto for a period of time). She had another occurrence of left lower extremity DVT and was subsequently found to have a positive lupus anticoagulant and Xarelto was resumed. She reported that she was seen by a sales representative [employer] in 2016 to assess for possible hypercoagulable state and the patient stated that she was felt not to have a hypercoagulable state and that no further evaluation was needed. Since 2006, she has had various fluctuating and transient symptoms including bilateral eye blurring of vision/transient vision loss, memory difficulty, disequilibrium, numbness in the toes bilaterally, burning sensation over the right anterior thigh, heaviness and vague numbness in her legs and urinary urgency and frequency. In 2014, she had a transient period of prominent heaviness and weakness in the legs that resolved. In 2023, she reported a feeling of heaviness in the arms and legs, fatigue and tingling in the hands and feet. She now reports a feeling of heaviness in the legs and states that she occasionally has a shuffling gait. Her dose of quetiapine was subsequently reduced back to 300mg daily and she no longer has shuffling. Baclofen is of benefit for her musculoskeletal pain; she generally takes this at night due to a side effect of some sedation. She has fibromyalgia. She has had myalgias and arthralgias and edema. She has had pain in the elbows, left hand, left shoulder, knees, ankles and calves. She sees a gear and spline grinder for mixed connective tissue disease; she takes hydroxychloroquine and methotrexate. She did not tolerate folic acid. She has had low back pain. She had neck pain in the past. She had prior right knee surgery. She had previously seen a oil painter; lumbar radiofrequency lesioning, facet blocks and epidural steroid injections were not of benefit. She saw another oil painter, Dr. Raines, and had lumbar injections that were of benefit; she no longer sees a oil painter. A three day course of IV Solu-Medrol in April 2016 was of benefit for her mixed connective tissue disease symptoms. Since 2021, she has had occasional falls. She had a right foot fracture in 2021. Her headaches had diminished in frequency and severity with the use of topiramate. She has had headaches about 3 to 4 days per week. Sumatriptan is of benefit. She has had left visual field scintillations associated with her headaches. She no longer takes Aleve. She sees a psychiatrist. She takes quetiapine, fluvoxamine, lamotrigine ER, and buspirone for depression and obsessive-compulsive disorder. She takes trazodone for insomnia. She has taken omeprazole as needed for dyspepsia. Her pruritus resolved and she no longer takes hydroxyzine. She had a syncopal episode in July 2016 and was evaluated in the emergency room and was found to have a low potassium level; this was treated. She has had another occurrence of hypokalemia (May 2022) and has also had hypomagnesemia and these have been treated with potassium and magnesium supplementation. She had a syncopal episode in May 2023 and was found to have a low potassium and this was treated; she was also given IV fluids. B12 1500 mcg IM injections have been of benefit for her fatigue. She has fatigue presently. Zembrace and a Toradol injection were of transient benefit for her headaches. Toradol tablets were not of significant benefit. Relpax and Lidoderm (for back pain) were of benefit but were not covered on her insurance plan without prior authorization. She previously took diazepam, nortriptyline, escitalopram, mirtazapine, bupropion, ondansetron, nabumetone and paroxetine. Zomig, levetiracetam, Fioricet, Vicodin, flurbiprofen, sulindac and Percocet were not well tolerated. Amitriptyline, meloxicam, cyclobenzaprine, rizatriptan, tramadol, Indocin, Daypro, methocarbamol, divalproex DR for headaches, gabapentin, pregabalin and naproxen were not of benefit. Diclofenac gel and lidocaine ointment were of benefit for her musculoskeletal pain, she no longer uses lidocaine ointment. Physical Exam: Neuro: the patient is awake and alert and responds appropriately; motor strength is 5/5 in the foot dorsiflexors bilaterally and quadripes bilaterally; no rigidity is noted in the wrists; gait is unremarkable Heart: Regular rate and rhythm Supplemental Info Lumbar MRI (05/26/11): mild degenerative disc and osteoarthritic (more content not included)... Normal [facility] ECHOCARDIOGRAM COMPLETEon ECHOCARDIOGRAM COMPLETE Patient Info Name: BRIANA HARRIS Age: 49 years : 1975 Gender: Female Ht: 165 cm Wt: 68 kg BSA: 1.78 m2 HR: 75 bpm BP: 132 / 83 mmHg Heart Rhythm: Sinus Rhythm Technical Quality: Excellent Exam Date: 10/09/2024 12:50 PM Patient Status: Outpatient Ui Lead Developer: Zenaida beckham Exam Type: ECHOCARDIOGRAM COMPLETE Study Info Indications I31.9 - Disease of pericardium, unspecified I50.9 - Heart failure, unspecified R06.02 - Shortness of breath Referring Physician: SOPHIA MORSE ; [id number] Staff: Michelle Alves [facility] BMI: 24.96 kg/m2 Summary 1. Left ventricular systolic function is normal with an ejection fraction by Biplane Method of Discs of 57 %. 2. The left ventricular diastolic function is normal. 3. Right ventricle is visually normal in size and systolic function. 4. No significant valvular disease identified. 5. Insufficient tricuspid regurgitation to assess right ventricular systolic pressure. History/Risk Factors Tobacco Use: Never History/Risk Factors Lupus. pulmonary embolism 2013. Procedure(s): Complete two-dimensional, color flow and Doppler transthoracic echocardiogram is performed. Left Ventricle Left ventricular chamber dimension is normal. Left ventricular systolic function is normal with an ejection fraction by Biplane Method of Discs of 57 %. Normal left ventricular mass. Left ventricular segmental wall motion is normal. The left ventricular diastolic function is normal. Right Ventricle Right ventricle is visually normal in size and systolic function. Left Atria Left atrial chamber is normal with a left atrial volume index of 16 ml/m2 by BP MOD. Right Atria Right atrial chamber dimension is normal. Aortic Valve The aortic valve is trileaflet. There is no aortic valve sclerosis. There is no aortic valve stenosis. There is trace aortic valve regurgitation. Pulmonic Valve The pulmonic valve is normal. There is no pulmonic valve stenosis. There is trace pulmonic regurgitation. Mitral Valve The mitral valve has normal leaflets. There is no mitral valve stenosis. There is no mitral valve regurgitation. Tricuspid Valve The tricuspid valve leaflets are normal. There is no significant tricuspid valve stenosis. There is trace tricuspid valve regurgitation. RV systolic pressure could not be accurately estimated. Pericardium/Pleural There is no pericardial effusion. Inferior Vena Cava Normal inferior vena cava with >50% collapse upon inspiration consistent with normal right atrial pressure. Aorta The aortic measurements are indexed to age and body surface area. The aortic root is normal measuring 2.6 cm with an index of 1.5 cm/m2. The proximal ascending aorta is normal measuring 2.6 cm with an index of 1.5 cm/m2. Wall Motion Scoring Wall Motion Scoring Index: 1.00 Left Ventricular Outflow Tract ------- Name Value Normal ------- LVOT 2D ------- LVOT Diameter 2.0 cm LVOT Doppler ------- LVOT Peak Velocity 1.1 m/s LVOT Peak Gradient 4 mmHg LVOT Mean Gradient 2 mmHg LVOT VTI 19 cm LVOT VTI/AV VTI Ratio 0.9 LVOT Stroke Volume 58 ml LVOT Stroke Index 32.86 ml/m2 Pulmonic Valve ------- Name Value Normal ------- RVOT Doppler ------- RVOT Peak Velocity 69 cm/s RVOT Peak Gradient 2 mmHg RVOT Mean Gradient 1 mmHg RVOT VTI 13 cm PV Doppler ------- PV Peak Velocity 1.14 m/s PV Peak Gradient 5 mmHg PV Mean Gradient 2 mmHg PV VTI 20 cm Mitral Valve ------- Name Value Normal ------- MV Doppler ------- MV Peak Velocity 0.63 m/s MV Peak Gradient 2 mmHg MV Mean Gradient 1 mmHg MV VTI 12 cm MV Decel [place] 295 cm/s2 MV PHT 42 ms MV Area (PHT) 5.2 cm2 4.0-5.0 MV Area (Cont Eq VTI) 5.0 cm2 MV Area Index (Cont Eq VTI) 2.80 cm2/m2 MV DVI 0.63 MV Diastolic Function ------- MV E Peak Velocity 0.43 m/s MV A Peak Velocity 0.51 m/s MV E/A 0.8 MV Decel Time 146 ms MV Annular TDI ------- MV Septal e' Velocity 8.0 cm/s >=8.0 MV E/e' (Septal) 5.4 <=8.0 MV Lateral e' Velocity 13.3 cm/s >=9 (more content not included)... [facility] Comment on above: Order Comment: Harman gordon has the script US DUPLEX VENOUS LEG RIGHTon 05-08-2025 US DUPLEX VENOUS LEG RIGHT Patient Info Name: BRIANA HARRIS Age: 49 years : 1975 Gender: Female Exam Date: 09/07/2024 2:44 PM Patient Status: Outpatient Slot Host: Gloria Shea RDMS (), RVS Referring Physician: CHEYENNE GUNN ; Indications M79.604 - Pain in right leg Procedure Description 14185 Duplex examination using B-mode, color and spectral Doppler of extremity veins including responses to compression and other maneuvers; unilateral or limited study. Conclusions * No evidence of deep or superficial vein thrombosis in the right lower extremity. Prior Study Date: 01/07/2022 Risk Factors Patient has a history of DVT, hypertension and PE. . Report Signatures Finalized by Maykelosbaldo De La Rosa MD on 09/07/2024 03:15 PM External Iliac: - External Iliac: Normal External Iliac: Normal External Iliac: - External Iliac: - External Iliac: - Common Femoral: Complete Common Femoral: Normal Common Femoral: Normal Common Femoral: Complete Common Femoral: Normal Common Femoral: Normal Femoral: Complete Femoral: - Femoral: Normal Femoral: - Femoral: Normal Femoral: - Peroneal: Complete Peroneal: - Peroneal: - Peroneal: - Peroneal: - Peroneal: - Profunda Femoral: Complete Profunda Femoral: - Profunda Femoral: - Profunda Femoral: - Profunda Femoral: - Popliteal: Complete Popliteal: - Popliteal: Normal Popliteal: - Popliteal: Normal Popliteal: - Posterior Tibial: Complete Posterior Tibial: - Posterior Tibial: - Posterior Tibial: - Posterior Tibial: - Posterior Tibial: - Gastrocnemius: - Gastrocnemius: - Gastrocnemius: - Gastrocnemius: - Gastrocnemius: - Gastrocnemius: - Soleal: - Soleal: - Soleal: - Soleal: - Soleal: - Soleal: - Great Saphenous: Complete Great Saphenous: - Great Saphenous: Normal Great Saphenous: - Great Saphenous: Normal Great Saphenous: - Small Saphenous: - Small Saphenous: - Small Saphenous: - Small Saphenous: - Small Saphenous: - Small Saphenous: - - Normal [facility] DUPLEX VENOUS LEG RIGHT Patient Info Name: BRIANA HARRIS Age: 49 years : 1975 Gender: Female Exam Date: 09/07/2024 2:44 PM Patient Status: Outpatient Slot Host: Gloria Shea RDMS (AB), RVS Referring Physician: CHEYENNE GUNN ; Indications M79.604 - Pain in right leg Procedure Description 00187 Duplex examination using B-mode, color and spectral Doppler of extremity veins including responses to compression and other maneuvers; unilateral or limited study. Conclusions * No evidence of deep or superficial vein thrombosis in the right lower extremity. Prior Study Date: 01/07/2022 Risk Factors Patient has a history of DVT, hypertension and PE. . Report Signatures Finalized by Maykel De La Rosa MD on 09/07/2024 03:15 PM External Iliac: - External Iliac: Normal External Iliac: Normal External Iliac: - External Iliac: - External Iliac: - Common Femoral: Complete Common Femoral: Normal Common Femoral: Normal Common Femoral: Complete Common Femoral: Normal Common Femoral: Normal Femoral: Complete Femoral: - Femoral: Normal Femoral: - Femoral: Normal Femoral: - Peroneal: Complete Peroneal: - Peroneal: - Peroneal: - Peroneal: - Peroneal: - Profunda Femoral: Complete Profunda Femoral: - Profunda Femoral: - Profunda Femoral: - Profunda Femoral: - Popliteal: Complete Popliteal: - Popliteal: Normal Popliteal: - Popliteal: Normal Popliteal: - Posterior Tibial: Complete Posterior Tibial: - Posterior Tibial: - Posterior Tibial: - Posterior Tibial: - Posterior Tibial: - Gastrocnemius: - Gastrocnemius: - Gastrocnemius: - Gastrocnemius: - Gastrocnemius: - Gastrocnemius: - Soleal: - Soleal: - Soleal: - Soleal: - Soleal: - Soleal: - Great Saphenous: Complete Great Saphenous: - Great Saphenous: Normal Great Saphenous: - Great Saphenous: Normal Great Saphenous: - Small Saphenous: - Small Saphenous: - Small Saphenous: - Small Saphenous: - Small Saphenous: - Small Saphenous: - - Dictated by: MAYKEL DE LA ROSA on WedSeptember 07, 2024 3:16:19 PM EDT Transcribed by: MAYKEL DE LA ROSA on WedSeptember 07, 2024 3:16:19 PM EDT Finalized by: MAYKEL DE LA ROSA on WedSeptember 07, 2024 3:16:19 PM EDT Normal [facility] XR CHEST AP/PA AND LATon XR CHEST AP/PA AND LAT EXAMINATION: XR CHEST AP/PA AND LAT HISTORY: ORDERING SYSTEM PROVIDED HISTORY: Mixed connective tissue disease, TECHNOLOGIST PROVIDED HISTORY: Illness/Other Reason for exam: Mixed connective tissue disease Cancer History: na Surgery, RadiationHistory: na Encounter Type: Initial Additional signs and symptoms: Mixed connective tissue disease, SOB ORDERING SYSTEM PROVIDED DIAGNOSIS CODES: M35.1 Mixed connective tissue disease COMPARISON: 05/18/2023 FINDINGS: Two-view chest x-ray. No pneumothorax, pleural effusion or focal airspace consolidation. Heart is normal in size. Bony thorax is unremarkable. IMPRESSION: No acute cardiopulmonary process. Workstation ID: [id number] Dictated by: KAR BROWN on WedSeptember 06, 2024 7:54:39 PM EDT Transcribed by: KAR BROWN on WedSeptember 06, 2024 7:54:39 PM EDT Finalized by: KAR BROWN on WedSeptember 06, 2024 7:54:39 PM EDT [facility] Comment on above: Order Comment: Injur y/Trauma or Illness?:Illness/Other How long have you had these symptoms (acute/chronic)?:Unknown Reason for exam?:Mixed connective tissue disease History of cancer?:na Surgeries, chemotherapy, or radiation?:na Type of Exam?:Initial Additional signs and symptoms?:Mixed connective tissue disease, SOB C REACTIVE PROTEINon 025 CRP High sensitivity method [Mass/Vol] 1.04 mg/L NINF - 10.00 mg/L [facility] CRP [Mass/Vol] 1.04 mg/L Normal <10.00 [facility] Comment on above: Performed By: #### C KB, CMPN, CRP #### [facility] (DEFAULT) [address] [place] [address] C3,C4on 08-31-2024 Complement C3 [Mass/Vol] 169 mg/dL 87 - 200 mg/dL [facility] Complement C4 [Mass/Vol] 32 mg/dL 18 - 52 mg/dL [facility] Interpretation and review of laboratory results Normal [facility] C3 169 mg/dL Normal 87-200 [facility] Comment on above: Performed By: #### C OMP #### [facility] (DEFAULT) [address] [place] [address]652 C4 32 mg/dL Normal 18-52 [facility] Comment on above: Performed By: #### C OMP #### [facility] (DEFAULT) [address] [place] [address] 71556 CBC AND ELECTRONIC DIFFon Abs Baso Auto < Normal 0.00-0.15 [facility] Comment on above: Performed By: #### L AB980 #### [facility] (DEFAULT) [address] [place] [address] 28708 Basophils/100 WBC (Bld) 0.6 % Normal O [facility] Comment on above: Performed By: #### L AB980 #### [facility] (DEFAULT) [address] [place] [address] 06002 DIFF STATUS Electronic Differential Normal [facility] Comment on above: Performed By: #### L [id number] #### [facility] (DEFAULT) [address] [place] [address] 00542 Eosinophils (Bld) [#/Vol] 0.07 10*3/uL Normal 0.00-0.4 2 [facility] Comment on above: Performed By: #### L AB980 #### [facility] (DEFAULT) [address] [place] [address] 32789 Eosinophils/100 WBC (Bld) 1.4 % Normal [facility] Comment on above: Performed By: #### L [id number] #### [facility] (DEFAULT) [address] [place] [address] 31103 Hematocrit (Bld) [Volume fraction] 42.1 % Normal 34.9-44.3 [facility] Comment on above: Performed By: #### L AB980 #### [facility] (DEFAULT) [address] [place] [address] 64461 Hemoglobin (Bld) [Mass/Vol] 14.1 g/dL Normal 11.4-15. 2 [facility] Comment on above: Performed By: #### L AB980 #### [facility] (DEFAULT) [address] [place] [address] 00978 Immature Grans % 0.4 % Normal [facility] Comment on above: Performed By: #### L AB980 #### [facility] (DEFAULT) [address] [place] [address] 79411 Immature Grans Absolute < Normal <=0.08 [facility] Comment on above: Performed By: #### L [id number] #### [facility] (DEFAULT) [address] [place] [address] 98309 Lymphocytes (Bld) [#/Vol] 1.57 10*3/uL Normal 1.16-3.5 1 [facility] Comment on above: Performed By: #### L AB980 #### [facility] (DEFAULT) [address] [place] [address] 31404 Lymphocytes/100 WBC (Bld) 31.3 % Normal [facility] Comment on above: Performed By: #### L AB980 #### [facility] (DEFAULT) [address] [place] [address] 13384 MCV (RBC) [Entitic vol] 92.1 fL Normal 79.6-97.7 [facility] Comment on above: Performed By: #### L AB980 #### [facility] (DEFAULT) [address] [place] [address] 15826 Mean Cell Hgb 30.9 pg Normal 25.9-33.9 [facility] Comment on above: Performed By: #### L AB980 #### [facility] (DEFAULT) [address] [place] [address] 94645 Mean Cell Hgb Conc 33.5 g/dL Normal 31.4-35.9 [facility] Comment on above: Performed By: #### L AB980 #### [facility] (DEFAULT) [address] [place] [address] 25972 Monocytes (Bld) [#/Vol] 0.57 10*3/uL Normal 0.22-0.87 [facility] Comment on above: Performed By: #### L AB980 #### [facility] (DEFAULT) [address] [place] [address] 83302 Monocytes/100 WBC (Bld) 11.4 % Normal O [facility] Comment on above: Performed By: #### L AB980 #### [facility] (DEFAULT) [address] [place] [address] 34186 Nucleated RBC 0.0 /100 WBC Normal <=0.2 [facility] Comment on above: Performed By: #### L AB980 #### [facility] (DEFAULT) [address] [place] [address] 86362 Platelet mean volume (Bld) [Entitic vol] 9.5 fL Normal 8.5-12.2 [facility] Comment on above: Performed By: #### L AB980 #### [facility] (DEFAULT) [address] [address] Platelets (Bld) [#/Vol] 305 10*3/uL Normal 150-393 [facility] Comment on above: Performed By: #### L AB980 #### [facility] (DEFAULT) [address] [place] [address] 54452 RBC (Bld) [#/Vol] 4.57 10*6/uL Normal 3.91-5.04 [facility] Comment on above: Performed By: #### L AB980 #### [facility] (DEFAULT) [address] [place] [address] 71558 RBC Distribution 12.3 % Normal 10.8-14.9 [facility] Comment on above: Performed By: #### L AB980 #### [facility] (DEFAULT) [address] [place] [address] 03192 Segs + Bands Auto 54.9 % Normal [facility] Comment on above: Performed By: #### L AB980 #### [facility] (DEFAULT) [address] [place] [address] 94501 Segs + Bands,Absolute Auto 2.75 K/uL Normal 1.64-7.28 [facility] Comment on above: Performed By: #### L AB980 #### [facility] (DEFAULT) [address] [place] [address] 22463 WBC (Bld) [#/Vol] 5.01 10*3/uL Normal 3.99-11.19 [facility] Comment on above: Performed By: #### L AB980 #### [facility] (DEFAULT) [address] [place] [address] 03354 CKon 08-31-2024 CK [Catalytic activity/Vol] 76 U/L 30 - 184 U/L [facility] CK [Catalytic activity/Vol] 76 U/L Normal 30-184 [facility] Comment on above: Performed By: #### C KB, CMPN, CRP #### [facility] (DEFAULT) [address] [place] [address] 56025 COMPREHENSIVE METABOLIC PANE Nikolay 08-31-2024 Albumin [Mass/Vol] 4.2 g/dL 3.5 - 5.0 g/dL [facility] ALP [Catalytic activity/Vol] 100 U/L 32 - 126 U/L [facility] ALT [Catalytic activity/Vol] 14 U/L 9 - 48 U/L [facility] Anion gap [Moles/Vol] 13 mmol/L 7 - 17 mmol/L [facility] AST [Catalytic activity/Vol] 19 U/L 10 - 39 U/L [facility] Bilirubin [Mass/Vol] 0.3 mg/dL NINF - 1.5 mg/dL [facility] Calcium [Mass/Vol] 9 mg/dL 8.6 - 10. 5 mg/dL [facility] Chloride [Moles/Vol] 110 mmol/L High 98 - 10 8 mmol/L [facility] CO2 [Moles/Vol] 21 mmol/L 21 - 31 mmol/L [facility] Creatinine [Mass/Vol] 1.1 mg/dL 0.50 - 1.20 mg/dL [facility] eGFR, CKD-EPI, Female 62 - PINF [facility] Comment on above: Reported eGFR is bas ed on the CKD-EPI 2020 equation using creatinine, age, and sex. Glucose [Mass/Vol] 82 mg/dL 70 - 179 mg/dL [facility] Interpretation and review of laboratory results Abnormal [facility] Osmolality Calc [Osmolality] 291 [facility] Potassium [Moles/Vol] 4 mmol/L 3.5 - 5.0 mmol/L [facility] Protein [Mass/Vol] 7.6 g/dL 6.4 - 8.3 g/dL [facility] Sodium [Moles/Vol] 140 mmol/L 135 - 145 mmol/L [facility] Urea nitrogen [Mass/Vol] 10 mg/dL 7 - 25 mg/dL [facility] Urea nitrogen/Creatinine [Mass ratio] 9 mg/mg [facility] Albumin [Mass/Vol] 4.2 g/dL Normal 3.5-5.0 [facility] Comment on above: Performed By: #### Prosper BUCIO, CMPN, CRP #### [facility] (DEFAULT) [address] [place] [address] 74172 ALP [Catalytic activity/Vol] 100 U/L Normal 32-126 [facility] Comment on above: Performed By: #### Prosper BUCIO, CMPN, CRP #### [facility] (DEFAULT) [address] [place] [address] ALT [Catalytic activity/Vol] 14 U/L Normal 9-48 [facility] Comment on above: Performed By: #### Prosper BUCIO, CMPN, CRP #### [facility] (DEFAULT) [address] [place] [address] 69271 Anion gap [Moles/Vol] 13 mmol/L Normal 7-17 [facility] Comment on above: Performed By: #### C RUPINDER, CMPN, CRP #### [facility] (DEFAULT) [address] [place] [address] 44798 AST [Catalytic activity/Vol] 19 U/L Normal 10-39 [facility] Comment on above: Performed By: #### C RUPINDER, CMPN, CRP #### [facility] (DEFAULT) [address] [place] [address] 39223 Bilirubin [Mass/Vol] 0.3 mg/dL Normal <1.5 [facility] Comment on above: Performed By: #### C KB, CMPN, CRP #### [facility] (DEFAULT) [address] [place] [address] 08752 Calcium [Mass/Vol] 9.0 mg/dL Normal 8.6-10.5 [facility] Comment on above: Performed By: #### C RUPINDER, CMPN, CRP #### [facility] (DEFAULT) [address] [place] [address] 38059 Chloride [Moles/Vol] 110 mmol/L High 98-108 [facility] Comment on above: Performed By: #### C KB, CMPN, CRP #### [facility] (DEFAULT) [address] [place] [address] 12540 CO2 [Moles/Vol] 21 mmol/L Normal 21-31 [facility] Comment on above: Performed By: #### C KB, CMPN, CRP #### [facility] (DEFAULT) [address] [place] [address] 33348 Creatinine [Mass/Vol] 1.10 mg/dL Normal 0.50-1.20 [facility] Comment on above: Performed By: #### C KB, CMPN, CRP #### [facility] (DEFAULT) [address] [place] [address] 34456 GFR/1.73 sq M.predicted among non-blacks MDRD (S/P/Bld) [Vol rate/Area] 62 mL/min/{1.73_m2} Normal >=60 [facility] Comment on above: Result Comment: Repo rted eGFR is based on the CKD-EPI 2020 equation using creatinine, age, and sex. Performed By: #### Prosper BUCIO CMPN, CRP #### [facility] (DEFAULT) [address] [place] [address] 48438 Glucose [Mass/Vol] 82 mg/dL Normal Nonfastin g : 70-179 mg/dL; Fastin-99 [facility] Comment on above: Performed By: #### Prosper BUCIO CMPN, CRP #### [facility] (DEFAULT) [address] [place] [address] 18351 Osmolality [Osmolality] 291 mosm/kg Normal 278-305 [facility] Comment on above: Performed By: #### Prosper BUCIO CMPN, CRP #### [facility] (DEFAULT) [address] [place] [address] 97637 Potassium [Moles/Vol] 4.0 mmol/L Normal 3.5-5.0 [facility] Comment on above: Performed By: #### Prosper BUCIO CMPN, CRP #### [facility] (DEFAULT) [address] [place] [address] 49490 Protein [Mass/Vol] 7.6 g/dL Normal 6.4-8.3 [facility] Comment on above: Performed By: #### Prosper BUCIO, CMPN, CRP #### [facility] (DEFAULT) [address] [place] [address] 54207 Sodium [Moles/Vol] 140 mmol/L Normal 135-145 [facility] Comment on above: Performed By: #### Prosper BUCIO, CMPN, CRP #### [facility] (DEFAULT) [address] [place] [address] 18663 Urea nitrogen [Mass/Vol] 10 mg/dL Normal 7-25 [facility] Comment on above: Performed By: #### C KB, CMPN, CRP #### [facility] (DEFAULT) [address] [place] [address] 07277 Urea nitrogen/Creatinine [Mass ratio] 9 mg/mg Normal [facility] Comment on above: Performed By: #### C KB, CMPN, CRP #### [facility] (DEFAULT) [address] [place] [address] 59216 HEMOGLOBIN A1Con 08-31-2024 Average glucose Estimated from glycated hemoglobin (Bld) [Mass/Vol] 88 mg/dL [facility] HbA1c (Bld) [Mass fraction] 4.7 % 4.7 - 5.6 % [facility] Glucose [Mass/Vol] 88 mg/dL Normal [facility] Comment on above: Performed By: #### E SR #### [facility] (DEFAULT) [address] [place] [address] 79269 Hemoglobin A1C HPLC 4.7 % Normal 4.7-5.6 [facility] Comment on above: Performed By: #### E SR #### [facility] (DEFAULT) [address] [place] [address] 71737 No Panel Informationon 08-31 Interpretation and review of laboratory results Normal [facility] RHEUMATOID FACTOROrdered By: Nancie Zuleta on 08-31-2024 Interpretation and review of laboratory results Normal [facility] Rheumatoid factor Qn [facility] RHEUMATOID FACTORon 09-01-19 25 Rheumatoid Factor <10 Normal <=14 [facility] Comment on above: Performed By: #### D 25OH, RF #### [facility] (DEFAULT) [address] [place] [address] 08781 SEDIMENTATION RATE, AUTOMATE Don 08-31-2024 ESR (Bld) [Velocity] 20 mm/h High [facility] Interpretation and review of laboratory results Abnormal [facility] ESR Westergren 20 mm/hr High <20 [facility] Comment on above: Performed By: #### E SR #### [facility] (DEFAULT) [address] [place] [address] 38910 TSH W/FT4 REFLEXon Interpretation and review of laboratory results Normal [facility] TSH Qn 1.847 m[IU]/L [facility] TSH 1.847 uIU/mL Normal 0.550-4.78 0 [facility] Comment on above: Performed By: #### T SHQR #### [facility] (DEFAULT) [address] [place] [address] 97018 URINALYSIS REFLEX TO CULTURE PERFORMABLEon 08-31-2024 Appearance (U) Clear Normal Clear [facility] Comment on above: Performed By: #### U [id number] #### [facility] (DEFAULT) [address] [place] [address] 04144 Performed By: #### E SR #### [facility] (DEFAULT) [address] [place] [address] 38741 Bacteria TRACE Abnormal ABSENT [facility] Comment on above: Performed By: #### U [id number] #### [facility] (DEFAULT) [address] [place] [address] 57775 Performed By: #### E SR #### [facility] (DEFAULT) [address] [place] [address] 62849 Blood Urine Small Abnormal Negative [facility] Comment on above: Performed By: #### U [id number] #### [facility] (DEFAULT) [address] [place] [address] 32613 Performed By: #### E SR #### [facility] (DEFAULT) [address] [place] [address] 43214 Color (U) Yellow Normal Yellow [facility] Comment on above: Performed By: #### U [id number] #### [facility] (DEFAULT) [address] [place] [address] 19329 Performed By: #### E SR #### [facility] (DEFAULT) [address] [place] [address] 47439 Glucose Ql (U) Negative Normal Negative [facility] Comment on above: Performed By: #### U [id number] #### [facility] (DEFAULT) [address] [place] [address] 67918 Performed By: #### E SR #### [facility] (DEFAULT) [address] [place] [address] 56429 Ketones Ql (U) Negative Normal Negative [facility] Comment on above: Performed By: #### U [id number] #### [facility] (DEFAULT) [address] [place] [address] 91535 Performed By: #### E SR #### [facility] (DEFAULT) [address] [place] [address] 30238 Leukocyte esterase Test strip Ql (U) Negative Normal Negative [facility] Comment on above: Performed By: #### U [id number] #### [facility] (DEFAULT) [address] [place] [address] 69641 Performed By: #### E SR #### [facility] (DEFAULT) [address] [place] [address] 27396 Nitrites Urine Negative Normal Negative [facility] Comment on above: Performed By: #### U [id number] #### [facility] (DEFAULT) [address] [place] [address] 41309 Performed By: #### E SR #### [facility] (DEFAULT) [address] [place] [address] 09109 pH (U) 6.5 [pH] Normal 5.0-7.0 [facility] Comment on above: Performed By: #### U [id number] #### [facility] (DEFAULT) [address] [place] [address] 48886 Performed By: #### E SR #### [facility] (DEFAULT) [address] [place] [address] 38172 Protein Urine Negative Normal Negative [facility] Comment on above: Performed By: #### U [id number] #### [facility] (DEFAULT) [address] [place] [address] 33721 Performed By: #### E SR #### [facility] (DEFAULT) [address] [place] [address] 03694 RBC LM.HPF (Urine sed) [#/Area] /[HPF] Abnormal 0-2 [facility] Comment on above: Performed By: #### U [id number] #### [facility] (DEFAULT) [address] [place] [address] 04047 Performed By: #### E SR #### [facility] (DEFAULT) [address] [place] [address] 72787 Specific Clare Urine 1.013 Normal 1.001 -1.03 5 [facility] Comment on above: Performed By: #### U [id number] #### [facility] (DEFAULT) [address] [place] [address] 14206 Performed By: #### E SR #### [facility] (DEFAULT) [address] [place] [address] 19869 Squamous/Epithelial Cells, Urine 6-10/hpf = 2+ Abnormal 0-2/hpf, 3-5/hpf = 1+ [facility] Comment on above: Performed By: #### U [id number] #### [facility] (DEFAULT) [address] [place] [address] 52809 Performed By: #### E SR #### [facility] (DEFAULT) [address] [place] [address] 41469 Urobilinogen Urine 0.2 E.U./dL Normal 0.2 E.U/dL, 1.0 E.U/dL [facility] Comment on above: Performed By: #### U [id number] #### [facility] (DEFAULT) [address] [place] [address] 62303 Performed By: #### E SR #### [facility] (DEFAULT) [address] [place] [address] 69405 WBC Urine 0 - 5 Normal 0 - 5 [facility] Comment on above: Performed By: #### U [id number] #### [facility] (DEFAULT) [address] [place] [address] 23448 Performed By: #### E SR #### [facility] (DEFAULT) [address] [place] [address] 96893 URINE PROTEIN/CREA RATIO, RA NDOMon 08-31-2024 Creatinine (24H U) [Mass/Vol] 92.89 mg/dL [facility] Protein Unsp time (U) [Mass/Vol] 15 mg/dL [facility] Protein/Creatinine (U) [Mass ratio] 0.161 mg/mg [facility] Creatinine (U) [Mass/Vol] 92.89 mg/dL Normal [facility] Comment on above: Performed By: #### E SR #### [facility] (DEFAULT) [address] [place] [address] 02366 Prot/Creat Ratio 0.161 mg/mg Normal [facility] [place] [facility] Comment on above: Performed By: #### E SR #### [facility] (DEFAULT) [address] [place] [address] 40521 Protein Ql (U) 15 mg/dL Normal [facility] Comment on above: Performed By: #### E SR #### [facility] (DEFAULT) [address] [place] [address] 10280 VITAMIN D (25-HYDROXY,TOTAL) on 08-31-2024 Interpretation and review of laboratory results Abnormal [facility] Vitamin D+Metabolites [Mass/Vol] 19.9 ng/mL Low 30.0 - 100.0 ng/mL [facility] Comment on above: <10 Deficiency 10-29 Insufficiency 30-100 Optimal Level >100 Possible Toxicity Vitamin D values hav e been shown to be falsely decreased in lipemic samples and should be interpreted with caution. [facility] 25-OH Vitamin D Total 19.9 ng/mL Low 30.0-100.0 [facility] Comment on above: Order Comment: Vitam in D values have been shown to be falsely decreased in lipemic samples and should be interpreted with caution. Result Comment: <10 Deficiency 10-29 Insufficiency 30-100 Optimal Level >100 Possible Toxicity Performed By: #### D 25OH, RF #### [facility] (DEFAULT) [address] [place] [address] CBC W/Diff, Automatedon 02- 0-2024 Absolute Lymph 1.33 X10 3/uL Normal 0.83-4.51 [facility] Comment on above: Performed By: #### L 500.4050, L503.6005, L100.0100 #### [facility] [address] [place], [address] Absolute Neut 3.2 X10 3/uL Normal 2.0-7.7 [facility] Comment on above: Performed By: #### L 500.4050, L503.6005, L100.0100 #### [facility] [address] [place], [address] Basophils/100 WBC (Bld) 0.9 % Normal 0-1 [facility] Comment on above: Performed By: #### L 500.4050, L503.6005, L100.0100 #### [facility] [address] [place], [address] Eosinophils/100 WBC (Bld) 1.3 % Normal 0-5 [facility] Comment on above: Performed By: #### L 500.4050, L503.6005, L100.0100 #### [facility] [address] [place], [address] Erythrocyte distribution width (RBC) [Ratio] 12.8 % Normal 11.6-14.6 [facility] Comment on above: Performed By: #### L 500.4050, L503.6005, L100.0100 #### [facility] [address] [place], [address] Hematocrit (Bld) [Volume fraction] 41.3 % Normal 37-47 [facility] Comment on above: Performed By: #### L 500.4050, L503.6005, L100.0100 #### [facility] [address] [place], [address] Hemoglobin (Bld) [Mass/Vol] 14.2 g/dL Normal 12.0-15. 0 [facility] Comment on above: Performed By: #### L 500.4050, L503.6005, L100.0100 #### [facility] [address] [place], [address] IG% 0.200 Normal 0.0-0.9 [facility] Comment on above: Result Comment: IG% - Immature Granulocytes (promyelocytes, myelocytes and metamyelocytes) > 1% indicates that a LEFT SHIFT is Present. Performed By: #### L 500.4050, L503.6005, L100.0100 #### [facility] [address] [place], [address] Lymphocytes/100 WBC (Bld) 24.7 % Normal 19-41 [facility] Comment on above: Performed By: #### L 500.4050, L503.6005, L100.0100 #### [facility] [address] [place], [address] MCH (RBC) [Entitic mass] 31.9 pg Normal 27.0-32.0 [facility] Comment on above: Performed By: #### L 500.4050, L503.6005, L100.0100 #### [facility] [address] [place], [address] MCHC (RBC) [Mass/Vol] 34.4 g/dL Normal 32-36 [facility] Comment on above: Performed By: #### L 500.4050, L503.6005, L100.0100 #### [facility] [address] [place], [address] MCV (RBC) [Entitic vol] 92.8 fL Normal 81-99 [facility] Comment on above: Performed By: #### L 500.4050, L503.6005, L100.0100 #### [facility] [address] [place], [address] Monocytes/100 WBC (Bld) 12.8 % High 0-10 [facility] Comment on above: Performed By: #### L 500.4050, L503.6005, L100.0100 #### [facility] [address] [place], [address] Neutrophils/100 WBC (Bld) 60.1 % Normal 47-70 [facility] Comment on above: Performed By: #### L 500.4050, L503.6005, L100.0100 #### [facility] [address] [place], [address] Nucleated RBC (Bld) [#/Vol] 0 10*3/uL Normal 0-5 [facility] Comment on above: Performed By: #### L 500.4050, L503.6005, L100.0100 #### [facility] [address] [place], [address] Platelet mean volume (Bld) [Entitic vol] 9.4 fL Normal 6.2-12.0 [facility] Comment on above: Performed By: #### L 500.4050, L503.6005, L100.0100 #### [facility] [address] [place], [address] Platelets (Bld) [#/Vol] 306 10*3/uL Normal 150-450 [facility] Comment on above: Performed By: #### L 500.4050, L503.6005, L100.0100 #### [facility] [address] [place], [address] RBC (Bld) [#/Vol] 4.45 10*6/uL Normal 4.2-5.[address] [facility] Comment on above: Performed By: #### L 500.4050, L503.6005, L100.0100 #### [facility] [address] [place], [address] RDW SD 43.0 fl Normal 35.1-43.9 [facility] Comment on above: Performed By: #### L 500.4050, L503.6005, L100.0100 #### [facility] [address] [place], [address] WBC (Bld) [#/Vol] 5.4 10*3/uL Normal 4.4-11.0 [facility] Comment on above: Performed By: #### L 500.4050, L503.6005, L100.0100 #### [facility] [address] [place], [address] CTA Abd/Pelvis W/WO Contrast on 06-12-2024 CTA Abd/Pelvis W/WO Contrast [facility] [address] [place] [address] CTA Abd/Pelvis W/WO Contrast MR#: [id number] Acct: [id number] Name: BRIANA HARRIS YUDITH Rep #: [id number] : 1975 F 49 From: Slade barger MD PCP: Dr. Danie Perkins MD Status: REG CLI Study: CTA Abd/Pelvis W/WO Contrast Date of Exam: 02/24 Exam# [id number] Ordering Dr: Danie Perkins MD PROCEDURE: CTA ABD/PELVIS W/WO CONTRAST REASON FOR EXAM: Abdominal pain. Possible omental infarction. TECHNIQUE: CTA imaging of the abdomen and pelvis with intravenous contrast. 3D reconstructions. IV CONTRAST: 100 cc of Isovue 370. COMPARISON: None. FINDINGS: Aorta: Abdominal aorta is normal in size. No significant atherosclerotic plaque. No evidence of aneurysm or dissection. Iliac Arteries: Iliac arteries are normal in size with no significant plaque or stenosis. Celiac: Normal. SMA: Normal. RAKESH : Normal. Right Renal: Normal. Left Renal: Normal. Other Findings: The patient is status post cholecystectomy. Fatty infiltration of the liver. Bilateral tubal ligation clips are seen. Small hiatal hernia. The visualized abdominal and pelvic viscera are unremarkable. No ascites or lymphadenopathy. UBone windows are unremarkable. CT/CTA Abd/Pelvis W/WO Contrast IMPRESSION: Unremarkable abdominal aorta and major visceral branches. Fatty infiltration of the liver. Status post cholecystectomy. One or more dose reduction techniques were used (e.g., Automated exposure control, adjustment of the mA and/or kV according to patient size, use of iterative reconstruction technique). Reading Location: [place] [address] CC: Dr. Danie Perkins MD Vision Impaired Teacher: Signed Normal [facility] Comprehensive Metabolic Prof ilon 06-12-2024 Albumin [Mass/Vol] 3.4 g/dL Normal 3.2-5.0 [facility] Comment on above: Performed By: #### L 500.4050, L503.6005, L100.0100 #### [facility] [address] [place], [address] Albumin/Globulin [Mass ratio] 0.8 {ratio} Low 0.9-2.4 [facility] Comment on above: Performed By: #### L 500.4050, L503.6005, L100.0100 #### [facility] [address] [place], [address] ALK P 129 U/L High 45-117 [facility] Comment on above: Performed By: #### L 500.4050, L503.6005, L100.0100 #### [facility] [address] [place], [address] ALT [Catalytic activity/Vol] 24 U/L Normal 13-56 [facility] Comment on above: Performed By: #### L 500.4050, L503.6005, L100.0100 #### [facility] [address] [place], [address] AST [Catalytic activity/Vol] 21 U/L Normal 15-37 [facility] Comment on above: Performed By: #### L 500.4050, L503.6005, L100.0100 #### [facility] [address] [place], [address] Bilirubin [Mass/Vol] 0.50 mg/dL Normal 0.20-1.00 [facility] Comment on above: Result Comment: For patients on eltrombopag therapy, use of Dimension Pollard TBIL is not recommended. Performed By: #### L 500.4050, L503.6005, L100.0100 #### [facility] [address] [place], [address] BUN/CRE 9.6 RATIO Low 10-20 [facility] Comment on above: Performed By: #### L 500.4050, L503.6005, L100.0100 #### [facility] [address] [place], [address] CA,Total 8.5 mg/dL Normal 8.5-10.1 [facility] Comment on above: Performed By: #### L 500.4050, L503.6005, L100.0100 #### [facility] [address] [place], [address] Chloride [Moles/Vol] 112 mmol/L High 98-107 [facility] Comment on above: Performed By: #### L 500.4050, L503.6005, L100.0100 #### [facility] [address] [place], [address] CO2 [Moles/Vol] 20.0 mmol/L Low 21.0-32.0 [facility] Comment on above: Performed By: #### L 500.4050, L503.6005, L100.0100 #### [facility] [address] [place], [address] Creatinine [Mass/Vol] 1.14 mg/dL High 0.55-1.02 [facility] Comment on above: Result Comment: The validity of the calculated GFR GFRAA in patients over 70 years has not been determined. Clinical correlation is essential. Performed By: #### L 500.4050, L503.6005, L100.0100 #### [facility] [address] [place], [address] EST GFR - AA 66 mL/min Normal >60 [facility] Comment on above: Result Comment: Afri can Andorran GFR Calc Performed By: #### L 500.4050, L503.6005, L100.0100 #### [facility] [address] [place], [address] GAP 6 Normal 5-15 [facility] Comment on above: Performed By: #### L 500.4050, L503.6005, L100.0100 #### [facility] [address] [place], [address] GFR/1.73 sq M.predicted among non-blacks MDRD (S/P/Bld) [Vol rate/Area] 54 mL/min/{1.73_m2} Low >60 [facility] Comment on above: Result Comment: Non- GFR Calc Performed By: #### L 500.4050, L503.6005, L100.0100 #### [facility] [address] [place], [address] Globulin (S) [Mass/Vol] 4.2 g/dL Normal 2.2-4.2 [facility] Comment on above: Performed By: #### L 500.4050, L503.6005, L100.0100 #### [facility] [address] [place], [address] Glucose [Mass/Vol] 77 mg/dL Normal 74-106 [facility] Comment on above: Performed By: #### L 500.4050, L503.6005, L100.0100 #### [facility] [address] [place], [address] Potassium [Moles/Vol] 3.8 mmol/L Normal 3.5-5.1 [facility] Comment on above: Performed By: #### L 500.4050, L503.6005, L100.0100 #### [facility] [address] [place], [address] Sodium [Moles/Vol] 138 mmol/L Normal 136-145 [facility] Comment on above: Performed By: #### L 500.4050, L503.6005, L100.0100 #### [facility] [address] [place], [address] T PROT 7.6 g/dL Normal 6.4-8.2 [facility] Comment on above: Performed By: #### L 500.4050, L503.6005, L100.0100 #### [facility] [address] [place], [address] Urea nitrogen [Mass/Vol] 11 mg/dL Normal 7-18 [facility] Comment on above: Performed By: #### L 500.4050, L503.6005, L100.0100 #### [facility] [address] [place], [address] Lactic Acidon 06-12-2024 Lactate [Moles/Vol] 1.5 mmol/L Normal 0.4-1.[address] [facility] Comment on above: Order Comment: N Performed By: #### L 500.4050, L503.6005, L100.0100 #### [facility] [address] [place], [address] CBC WITH AUTO DIFFERENTIALon 06-04-2024 AUTO NRBC 0.0 % Normal [facility] Comment on above: Performed By: #### L [id number] #### LAB [address] [place] [address] Shawn Benítez M.D. [id number] AUTO NRBC ABS COUNT 0.00 K/mcL Normal 0.00-0.00 [facility] Comment on above: Performed By: #### L [id number] #### [facility] [address] [address] Shawn Benítez M.D. [id number] BASOPHILS ABSOLUTE COUNT 0.05 K/mcL Normal 0.00-0.30 [facility] Comment on above: Performed By: #### L [id number] #### [facility] [address] [address] Shawn Benítez M.D. [id number] Basophils/100 WBC (Bld) 1.1 % Normal [facility] Comment on above: Performed By: #### L [id number] #### LAB [address] [place] [address] Shawn Benítez M.D. [id number] Eosinophils (Bld) [#/Vol] 0.10 10*3/uL Normal 0.00-0.5 0 [facility] Comment on above: Performed By: #### L [id number] #### [facility] [address] [address] Shawn Benítez M.D. [id number] Eosinophils/100 WBC (Bld) 2.1 % Normal [facility] Comment on above: Performed By: #### L [id number] #### LAB [address] [place] [address] Shawn Benítez M.D. [id number] Erythrocyte distribution width (RBC) [Ratio] 12.9 % Normal 11.6-14.8 [facility] Comment on above: Performed By: #### L [id number] #### [facility] [address] [address] Shawn Benítez M.D. [id number] Hematocrit (Bld) [Volume fraction] 40.2 % Normal 36.0-46.0 [facility] Comment on above: Performed By: #### L [id number] #### [facility] [address] [address] Shawn Benítez M.D. [id number] Hemoglobin (Bld) [Mass/Vol] 13.7 g/dL Normal 12.0-16. 0 [facility] Comment on above: Performed By: #### L [id number] #### [facility] [address] [address] Shawn Benítez M.D. [id number] IG ABSOLUTE 0.01 K/mcL Normal 0.00-0.30 [facility] Comment on above: Performed By: #### L [id number] #### LAB [address] [address] Shawn Benítez M.D. [id number] IG PERCENT 0.20 % [facility] Comment on above: Result Comment: The IG parameter is the percentage of metamyelocytes, myelocytes and promyelocytes. An immature granulocyte count (IG) of 1% or more suggests the possibility of infection, an IG count of 3% is very likely related to an infection. Performed By: #### L [id number] #### [facility] [address] [place] [address] Shawn Benítez M.D. [id number] Lymphocytes (Bld) [#/Vol] 1.56 10*3/uL Normal 0.90-4.0 0 [facility] Comment on above: Performed By: #### L [id number] #### [facility] [address] [place] [address] Shawn Benítez M.D. [id number] Lymphocytes/100 WBC (Bld) 33.5 % Normal [facility] Comment on above: Performed By: #### L [id number] #### LAB [address] [place] [address] Shawn Benítez M.D. [id number] MCH (RBC) [Entitic mass] 31.7 pg Normal 26.0-34.0 [facility] Comment on above: Performed By: #### L [id number] #### LAB [address] [place] [address] Shawn Benítez M.D. [id number] MCV (RBC) [Entitic vol] 93.1 fL Normal 80.0-100.0 [facility] Comment on above: Performed By: #### L [id number] #### LAB [address] [place] [address] Shawn Benítez M.D. [id number] MEAN CORPUSCULAR HEMOGLOBIN CONC 34.1 g/dL Normal 31.0-37.0 [facility] Comment on above: Performed By: #### L [id number] #### LAB [address] [place] [address] Shawn Benítez M.D. [id number] Monocytes (Bld) [#/Vol] 0.47 10*3/uL Normal 0.30-0.90 [facility] Comment on above: Performed By: #### L [id number] #### LAB [address] [place] [address] Shawn Benítez M.D. [id number] Monocytes/100 WBC (Bld) 10.1 % Normal [facility] [facility] Comment on above: Performed By: #### L [id number] #### LAB [address] [place] [address] Shawn Benítez M.D. [id number] NEUTROPHILS ABSOLUTE COUNT 2.47 K/mcL Normal 1.70-7.00 [facility] Comment on above: Performed By: #### L [id number] #### LAB [address] [place] [address] Shawn Benítez M.D. [id number] Neutrophils/100 WBC (Bld) 53.0 % Normal [facility] Comment on above: Performed By: #### L [id number] #### [facility] LAB [address] [address] Shawn Benítez M.D. [id number] Platelet mean volume (Bld) [Entitic vol] 9.6 fL Normal 9.4-12.4 [facility] Comment on above: Performed By: #### L [id number] #### [facility] LAB [address] [address] Shawn Benítez M.D. [id number] Platelets (Bld) [#/Vol] 347 10*3/uL Normal 150-400 [facility] Comment on above: Performed By: #### L [id number] #### [facility] [address] [address] Shawn Benítez M.D. [id number] RBC (Bld) [#/Vol] 4.32 10*6/uL Normal 4.00-5.20 [facility] Comment on above: Performed By: #### L [id number] #### [facility] [address] [address] Shawn Benítez M.D. [id number] WBC (Bld) [#/Vol] 4.66 10*3/uL Normal 4.50-11.00 [facility] Comment on above: Performed By: #### L [id number] #### [facility] [address] [address] Shawn Benítez M.D. [id number] COMPREHENSIVE METABOLIC PANE Nikolay 06-04-2024 Albumin [Mass/Vol] 4.1 g/dL Normal 3.2-5.2 [facility] Comment on above: Order Comment: Micro scopic examination is performed on all urinalysis samples and only positive findings are reported. The test for blood on the chemical analytic portion of urinalysis may also be positive due to hemoglobinuria and myoglobinuria and if red blood cells are present they are quantified by microscopic examination. Performed By: #### 4 [id number] #### [facility] [address] [address] Shawn Benítez M.D. [id number] ALP [Catalytic activity/Vol] 114 U/L Normal 40-150 [facility] Comment on above: Order Comment: Micro scopic examination is performed on all urinalysis samples and only positive findings are reported. The test for blood on the chemical analytic portion of urinalysis may also be positive due to hemoglobinuria and myoglobinuria and if red blood cells are present they are quantified by microscopic examination. Performed By: #### 4 6625 #### LAB [address] [address] Shawn Benítez M.D. [id number] ALT [Catalytic activity/Vol] 22 U/L Normal 0-35 U/L [facility] Comment on above: Order Comment: Micro scopic examination is performed on all urinalysis samples and only positive findings are reported. The test for blood on the chemical analytic portion of urinalysis may also be positive due to hemoglobinuria and myoglobinuria and if red blood cells are present they are quantified by microscopic examination. Performed By: #### 4 6625 #### LAB [address] [place] [address] Shawn Benítez M.D. [id number] Anion gap [Moles/Vol] 14 mmol/L Normal 10-[address] [facility] Comment on above: Order Comment: Micro scopic examination is performed on all urinalysis samples and only positive findings are reported. The test for blood on the chemical analytic portion of urinalysis may also be positive due to hemoglobinuria and myoglobinuria and if red blood cells are present they are quantified by microscopic examination. Performed By: #### 4 [id number] #### LAB [address] [address] Shawn Benítez M.D. [id number] AST [Catalytic activity/Vol] 29 U/L Normal 0-35 U/L [facility] Comment on above: Order Comment: Micro scopic examination is performed on all urinalysis samples and only positive findings are reported. The test for blood on the chemical analytic portion of urinalysis may also be positive due to hemoglobinuria and myoglobinuria and if red blood cells are present they are quantified by microscopic examination. Performed By: #### 4 6625 #### LAB [address] [place], [place] [address] Shawn Benítez M.D. [id number] Bilirubin [Mass/Vol] 0.3 mg/dL Normal 0.0-1.3 [facility] Comment on above: Order Comment: Micro scopic examination is performed on all urinalysis samples and only positive findings are reported. The test for blood on the chemical analytic portion of urinalysis may also be positive due to hemoglobinuria and myoglobinuria and if red blood cells are present they are quantified by microscopic examination. Performed By: #### 4 6625 #### LAB [address] [place], [place] [address] Shawn Benítez M.D. [id number] Calcium [Mass/Vol] 8.4 mg/dL Normal 8.4-10.2 [facility] Comment on above: Order Comment: Micro scopic examination is performed on all urinalysis samples and only positive findings are reported. The test for blood on the chemical analytic portion of urinalysis may also be positive due to hemoglobinuria and myoglobinuria and if red blood cells are present they are quantified by microscopic examination. Performed By: #### 4 6625 #### LAB [address] [place], [place] [address] Shawn Benítez M.D. [id number] Chloride [Moles/Vol] 111 mmol/L High 98-108 [facility] Comment on above: Order Comment: Micro scopic examination is performed on all urinalysis samples and only positive findings are reported. The test for blood on the chemical analytic portion of urinalysis may also be positive due to hemoglobinuria and myoglobinuria and if red blood cells are present they are quantified by microscopic examination. Performed By: #### 4 6625 #### LAB [address] [id number] Shawn Benítez M.D. [id number] Creatinine [Mass/Vol] 1.19 mg/dL High 0.40-1.[address] [facility] Comment on above: Order Comment: Micro scopic examination is performed on all urinalysis samples and only positive findings are reported. The test for blood on the chemical analytic portion of urinalysis may also be positive due to hemoglobinuria and myoglobinuria and if red blood cells are present they are quantified by microscopic examination. Performed By: #### 4 6625 #### LAB [address] [id number] Shawn Benítez M.D. [id number] EGFR 57 mL/min/1.73 m2 Low >=60 [facility] Comment on above: Order Comment: Micro scopic examination is performed on all urinalysis samples and only positive findings are reported. The test for blood on the chemical analytic portion of urinalysis may also be positive due to hemoglobinuria and myoglobinuria and if red blood cells are present they are quantified by microscopic examination. Result Comment: Matilde mated GFR was calculated using the 2020 CKD-EPI creatinine equation. Performed By: #### 4 [id number] #### [facility] [address] [address] Shawn Benítez M.D. [id number] Glucose [Mass/Vol] 83 mg/dL Normal 65-99 [facility] Comment on above: Order Comment: Micro scopic examination is performed on all urinalysis samples and only positive findings are reported. The test for blood on the chemical analytic portion of urinalysis may also be positive due to hemoglobinuria and myoglobinuria and if red blood cells are present they are quantified by microscopic examination. Performed By: #### 4 6625 #### [facility] [address] [place], [place] [address] Shawn Benítez M.D. [id number] HCO3 (Bld) [Moles/Vol] 20 mmol/L Low 21-32 [facility] Comment on above: Order Comment: Micro scopic examination is performed on all urinalysis samples and only positive findings are reported. The test for blood on the chemical analytic portion of urinalysis may also be positive due to hemoglobinuria and myoglobinuria and if red blood cells are present they are quantified by microscopic examination. Performed By: #### 4 6625 #### [facility] [address] [place], [place] [address] Shawn Benítez M.D. [id number] Potassium [Moles/Vol] 3.9 mmol/L Normal 3.5-5.[address] [facility] Comment on above: Order Comment: Micro scopic examination is performed on all urinalysis samples and only positive findings are reported. The test for blood on the chemical analytic portion of urinalysis may also be positive due to hemoglobinuria and myoglobinuria and if red blood cells are present they are quantified by microscopic examination. Performed By: #### 4 6625 #### LAB [address] [address] Shawn Benítez M.D. [id number] Protein [Mass/Vol] 6.9 g/dL Normal 6.0-8.0 [facility] Comment on above: Order Comment: Micro scopic examination is performed on all urinalysis samples and only positive findings are reported. The test for blood on the chemical analytic portion of urinalysis may also be positive due to hemoglobinuria and myoglobinuria and if red blood cells are present they are quantified by microscopic examination. Performed By: #### 4 6625 #### LAB [address] [place] [address] Shawn Benítez M.D. [id number] Sodium [Moles/Vol] 141 mmol/L Normal 135-145 [facility] Comment on above: Order Comment: Micro scopic examination is performed on all urinalysis samples and only positive findings are reported. The test for blood on the chemical analytic portion of urinalysis may also be positive due to hemoglobinuria and myoglobinuria and if red blood cells are present they are quantified by microscopic examination. Performed By: #### 4 6625 #### LAB [address] [place] [address] Shawn Benítez M.D. [id number] Urea nitrogen [Mass/Vol] 9 mg/dL Normal 8-25 [facility] Comment on above: Order Comment: Micro scopic examination is performed on all urinalysis samples and only positive findings are reported. The test for blood on the chemical analytic portion of urinalysis may also be positive due to hemoglobinuria and myoglobinuria and if red blood cells are present they are quantified by microscopic examination. Performed By: #### 4 [id number] #### LAB [address] [place] [address] Shawn Benítez M.D. [id number] Urea nitrogen/Creatinine [Mass ratio] 7.6 mg/mg Low 10.0-20.0 [facility] Comment on above: Order Comment: Micro scopic examination is performed on all urinalysis samples and only positive findings are reported. The test for blood on the chemical analytic portion of urinalysis may also be positive due to hemoglobinuria and myoglobinuria and if red blood cells are present they are quantified by microscopic examination. Performed By: #### 4 6625 #### LAB [address] [place], [place] [address] Shawn Benítez M.D. [id number] CT ABDOMEN PELVIS WITH IV CO NTRAST ONLYon 06-04-2024 CT ABDOMEN PELVIS WITH IV CONTRAST ONLY EXAMINATION: CT ABDOMEN PELVIS WITH IV CONTRAST ONLY HISTORY: ORDERING SYSTEM PROVIDED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 #### [facility] [address] [place], [address] Hemoglobin (Bld) [Mass/Vol] 14.5 g/dL Normal 12.0-15. 0 [facility] Comment on above: Performed By: #### L 500.4100, L501.9520, L500.4050, L100.0100 #### [facility] [address] [place], [address] IG% 0.600 Normal 0.0-0.9 [facility] Comment on above: Result Comment: IG% - Immature Granulocytes (promyelocytes, myelocytes and metamyelocytes) > 1% indicates that a LEFT SHIFT is Present. Performed By: #### L 500.4100, L501.9520, L500.4050, L100.0100 #### [facility] [address] [place], [address] Lymphocytes/100 WBC (Bld) 19.1 % Normal 19-41 [facility] Comment on above: Performed By: #### L 500.4100, L501.9520, L500.4050, L100.0100 #### [facility] [address] [place], [address] MCH (RBC) [Entitic mass] 32.0 pg Normal 27.0-32.0 [facility] Comment on above: Performed By: #### L 500.4100, L501.9520, L500.4050, L100.0100 #### [facility] [address] [place], [address] MCHC (RBC) [Mass/Vol] 33.8 g/dL Normal 32-36 [facility] Comment on above: Performed By: #### L 500.4100, L501.9520, L500.4050, L100.0100 #### [facility] [address] [place], [address] MCV (RBC) [Entitic vol] 94.7 fL Normal 81-99 [facility] Comment on above: Performed By: #### L 500.4100, L501.9520, L500.4050, L100.0100 #### [facility] [address] [place], [address] Monocytes/100 WBC (Bld) 7.2 % Normal 0-10 [facility] Comment on above: Performed By: #### L 500.4100, L501.9520, L500.4050, L100.0100 #### [facility] [address] [place], [address] Neutrophils/100 WBC (Bld) 69.7 % Normal 47-70 [facility] Comment on above: Performed By: #### L 500.4100, L501.9520, L500.4050, L100.0100 #### [facility] [address] [place], [address] Nucleated RBC (Bld) [#/Vol] 0 10*3/uL Normal 0-5 [facility] Comment on above: Performed By: #### L 500.4100, L501.9520, L500.4050, L100.0100 #### [facility] [address] [place], [address] Platelet mean volume (Bld) [Entitic vol] 9.6 fL Normal 6.2-12.0 [facility] Comment on above: Performed By: #### L 500.4100, L501.9520, L500.4050, L100.0100 #### [facility] [address] [place], [address] Platelets (Bld) [#/Vol] 311 10*3/uL Normal 150-450 [facility] Comment on above: Performed By: #### L 500.4100, L501.9520, L500.4050, L100.0100 #### [facility] [address] [place], [address] RBC (Bld) [#/Vol] 4.53 10*6/uL Normal 4.2-5.[address] [facility] Comment on above: Performed By: #### L 500.4100, L501.9520, L500.4050, L100.0100 #### [facility] [address] [place], [address] RDW SD 44.3 fl High 35.1-43.9 [facility] Comment on above: Performed By: #### L 500.4100, L501.9520, L500.4050, L100.0100 #### [facility] [address] [place], [address] WBC (Bld) [#/Vol] 8.6 10*3/uL Normal 4.4-11.0 [facility] Comment on above: Performed By: #### L 500.4100, L501.9520, L500.4050, L100.0100 #### [facility] [address] [place], [address] Comprehensive Metabolic Prof [facility] 04-04-2024 Albumin [Mass/Vol] 3.0 g/dL Low 3.2-5.0 [facility] Comment on above: Performed By: #### L 500.4100, L501.9520, L500.4050, L100.0100 #### [facility] [address] [place], [address] Albumin/Globulin [Mass ratio] 0.8 {ratio} Low 0.9-2.4 [facility] Comment on above: Performed By: #### L 500.4100, L501.9520, L500.4050, L100.0100 #### [facility] [address] [place], [address] ALK P 132 U/L High 45-117 [facility] Comment on above: Performed By: #### L 500.4100, L501.9520, L500.4050, L100.0100 #### [facility] [address] [place], [address] ALT [Catalytic activity/Vol] 20 U/L Normal 13-56 [facility] Comment on above: Performed By: #### L 500.4100, L501.9520, L500.4050, L100.0100 #### [facility] [address] [place], [address] AST [Catalytic activity/Vol] 19 U/L Normal 15-37 [facility] Comment on above: Performed By: #### L 500.4100, L501.9520, L500.4050, L100.0100 #### [facility] [address] [place], [address] Bilirubin [Mass/Vol] 0.30 mg/dL Normal 0.20-1.00 [facility] Comment on above: Result Comment: For patients on eltrombopag therapy, use of Dimension Pollard TBIL is not recommended. Performed By: #### L 500.4100, L501.9520, L500.4050, L100.0100 #### [facility] [address] [place], [address] BUN/CRE 15.3 RATIO Normal 10-20 [facility] Comment on above: Performed By: #### L 500.4100, L501.9520, L500.4050, L100.0100 #### [facility] [address] [place], [address] CA,Total 8.3 mg/dL Low 8.5-10.1 [facility] Comment on above: Performed By: #### L 500.4100, L501.9520, L500.4050, L100.0100 #### [facility] [address] [place], [address] Chloride [Moles/Vol] 111 mmol/L High 98-107 [facility] Comment on above: Performed By: #### L 500.4100, L501.9520, L500.4050, L100.0100 #### [facility] [address] [place], [address] CO2 [Moles/Vol] 19.0 mmol/L Low 21.0-32.0 [facility] Comment on above: Performed By: #### L 500.4100, L501.9520, L500.4050, L100.0100 #### [facility] [address] [place], [address] Creatinine [Mass/Vol] 1.18 mg/dL High 0.55-1.02 [facility] Comment on above: Result Comment: The validity of the calculated GFR GFRAA in patients over 70 years has not been determined. Clinical correlation is essential. Performed By: #### L 500.4100, L501.9520, L500.4050, L100.0100 #### [facility] [address] [place], [address] EST GFR - AA 63 mL/min Normal >60 [facility] Comment on above: Result Comment: Afri can Andorran GFR Calc Performed By: #### L 500.4100, L501.9520, L500.4050, L100.0100 #### [facility] [address] [place], [address] GAP 8 Normal 5-15 [facility] Comment on above: Performed By: #### L 500.4100, L501.9520, L500.4050, L100.0100 #### [facility] [address] [place], [address] GFR/1.73 sq M.predicted among non-blacks MDRD (S/P/Bld) [Vol rate/Area] 52 mL/min/{1.73_m2} Low >60 [facility] Comment on above: Result Comment: Non- GFR Calc Performed By: #### L 500.4100, L501.9520, L500.4050, L100.0100 #### [facility] [address] [place], [address] Globulin (S) [Mass/Vol] 4.0 g/dL Normal 2.2-4.2 [facility] Comment on above: Performed By: #### L 500.4100, L501.9520, L500.4050, L100.0100 #### [facility] [address] [place], [address] Glucose [Mass/Vol] 160 mg/dL High 74-106 [facility] Comment on above: Result Comment: Fast ing Glucose result greater than or equal to 126 mg/dL suggests DIABETES MELLITUS per A.D.A. criteria. Performed By: #### L 500.4100, L501.9520, L500.4050, L100.0100 #### [facility] [address] [place], [address] Potassium [Moles/Vol] 3.8 mmol/L Normal 3.5-5.1 [facility] Comment on above: Performed By: #### L 500.4100, L501.9520, L500.4050, L100.0100 #### [facility] [address] [place], [address] Sodium [Moles/Vol] 138 mmol/L Normal 136-145 [facility] Comment on above: Performed By: #### L 500.4100, L501.9520, L500.4050, L100.0100 #### [facility] [address] [place], [address] T PROT 7.0 g/dL Normal 6.4-8.2 [facility] Comment on above: Performed By: #### L 500.4100, L501.9520, L500.4050, L100.0100 #### [facility] [address] [place], [address] Urea nitrogen [Mass/Vol] 18 mg/dL Normal 7-18 [facility] Comment on above: Performed By: #### L 500.4100, L501.9520, L500.4050, L100.0100 #### [facility] [address] [place], [address] Lipid Profileon 04-04-2024 Cholesterol [Mass/Vol] 180 mg/dL Normal 200 [facility] Comment on above: Result Comment: <200 mg/dL Desirable 200-240 mg/dL Borderline >240 mg/dL High Risk Performed By: #### L 500.4100, L501.9520, L500.4050, L100.0100 #### [facility] [address] [place], [address] Cholesterol in HDL [Mass/Vol] 62 mg/dL Normal [facility] Comment on above: Result Comment: The drugs N-Acetylcysteine and Metamizole may falsely depress this assay. Reference Range HDL <40 mg/dL Low HDL Cholesterol HDL >or= 60 mg/dL High HDL Cholesterol Performed By: #### L 500.4100, L501.9520, L500.4050, L100.0100 #### [facility] [address] [place], [address] Cholesterol in LDL [Mass/Vol] 74 mg/dL Normal 0-130 [facility] Comment on above: Performed By: #### L 500.4100, L501.9520, L500.4050, L100.0100 #### [facility] [address] [place], [address] Cholesterol in VLDL [Mass/Vol] 44 mg/dL High 5-40 [facility] Comment on above: Performed By: #### L 500.4100, L501.9520, L500.4050, L100.0100 #### [facility] [address] [place], [address] Triglyceride [Mass/Vol] 220 mg/dL High [facility] Comment on above: Result Comment: The drugs N-Acetylcysteine and Metamizole may falsely depress this assay. Serum Triglycerides Reference Interval Normal <150 mg/dL Borderline high 150 - 199 mg/dL High 200 - 499 mg/dL Very High > or = 500 mg/dL Performed By: #### L 500.4100, L501.9520, L500.4050, L100.0100 #### [facility] [address] [place], [address] Thyroid Stim Hormone (TSH)on 04-04-2024 TSH 1.770 uIU/mL Normal 0.358-3.74 0 [facility] Comment on above: Performed By: #### L 500.4100, L501.9520, L500.4050, L100.0100 #### [facility] [address] [place], [address] DSDNA ANTIBODYon 10-13-2023 DNA double strand Ab Ql (Body fld) Negative Negative [facility] Interpretation and review of laboratory results Normal [facility] C3,C4on 10-12-2023 Complement C3 [Mass/Vol] 127 mg/dL 87 - 200 mg/dL [facility] Complement C4 [Mass/Vol] 26 mg/dL 18 - 52 mg/dL [facility] Interpretation and review of laboratory results Normal [facility] COMPREHENSIVE METABOLIC PANE Nikolay 10-12-2023 Albumin [Mass/Vol] 3.8 g/dL 3.5 - 5.0 g/dL [facility] ALP [Catalytic activity/Vol] 90 U/L 32 - 126 U/L [facility] ALT [Catalytic activity/Vol] 12 U/L 9 - 48 U/L [facility] Anion gap [Moles/Vol] 13 mmol/L 7 - 17 mmol/L [facility] AST [Catalytic activity/Vol] 14 U/L 10 - 39 U/L [facility] Bilirubin [Mass/Vol] 0.3 mg/dL NINF - [facility].5 [facility] Calcium [Mass/Vol] 8.2 mg/dL Low 8.6 - 10. 5 mg/dL [facility] Chloride [Moles/Vol] 109 mmol/L High 98 - 10 8 mmol/L [facility] CO2 [Moles/Vol] 19 mmol/L Low 21 - 31 mmol/L [facility] Creatinine [Mass/Vol] 1.04 mg/dL 0.50 - 1.20 mg/dL [facility] eGFR, CKD-EPI, Female 69 - PINF [facility] Comment on above: Reported eGFR is bas ed on the CKD-EPI 2020 equation using creatinine, age, and sex. Glucose [Mass/Vol] 79 mg/dL 70 - 99 mg/dL [facility] Interpretation and review of laboratory results Abnormal [facility] Osmolality Calc [Osmolality] 285 [facility] Potassium [Moles/Vol] 3.2 mmol/L Low 3.5 - 5.0 mmol/L [facility] Protein [Mass/Vol] 6.5 g/dL 6.4 - 8.3 g/dL [facility] Sodium [Moles/Vol] 138 mmol/L 135 - 145 mmol/L [facility] Urea nitrogen [Mass/Vol] 9 mg/dL 7 - 25 mg/dL [facility] Urea nitrogen/Creatinine [Mass ratio] 9 mg/mg [facility] URINE PROTEIN/CREA RATIO, RA Unique 10-12-2023 Creatinine (24H U) [Mass/Vol] 97.27 mg/dL [facility] Protein Unsp time (U) [Mass/Vol] 12 mg/dL [facility] Protein/Creatinine (U) [Mass ratio] 0.123 mg/mg [facility] APTTon 10-07-2023 aPTT Coag (Bld) [Time] 24 s Normal 23-34 [facility] Comment on above: Order Comment: Micro scopic examination is performed on all urinalysis samples and only positive findings are reported. The test for blood on the chemical analytic portion of urinalysis may also be positive due to hemoglobinuria and myoglobinuria and if red blood cells are present they are quantified by microscopic examination. Performed By: #### [id number] #### LAB [address] [place], [place] [address] Shawn Benítez M.D. [id number] BASIC METABOLIC PANELon 06-0 -2023 Anion gap [Moles/Vol] 16 mmol/L Normal 10-[address] [facility] Comment on above: Order Comment: [facility] has implemented the eGFR calculation approach that does not have a coefficient for race that conforms to the NKF-ASN Task Force Recommendations. Performed By: #### [id number] #### LAB [address] [place], [place] [address] Shawn Benítez M.D. [id number] Calcium [Mass/Vol] 8.7 mg/dL Normal 8.4-10.2 [facility] Comment on above: Order Comment: [facility] has implemented the eGFR calculation approach that does not have a coefficient for race that conforms to the NKF-ASN Task Force Recommendations. Performed By: #### 4 [id number] #### LAB [address] [place], [place] [address] Shawn Benítez M.D. [id number] Chloride [Moles/Vol] 105 mmol/L Normal 98-108 [facility] Comment on above: Order Comment: [facility] has implemented the eGFR calculation approach that does not have a coefficient for race that conforms to the NKF-ASN Task Force Recommendations. Performed By: #### 4 [id number] #### LAB [address] [place] [address] Shawn Benítez M.D. [id number] Creatinine [Mass/Vol] 1.13 mg/dL High 0.40-1.[address] [facility] Comment on above: Order Comment: [facility] has implemented the eGFR calculation approach that does not have a coefficient for race that conforms to the NKF-ASN Task Force Recommendations. Performed By: #### 4 [id number] #### LAB [address] [place] [address] Shawn Benítez M.D. [id number] EGFR 61 mL/min/1.73 m2 Normal >=60 [facility] Comment on above: Order Comment: [facility] has implemented the eGFR calculation approach that does not have a coefficient for race that conforms to the NKF-ASN Task Force Recommendations. Result Comment: Matilde mated GFR was calculated using the 2020 CKD-EPI creatinine equation. Performed By: #### 4 [id number] #### LAB [address] [place] [address] Shawn Benítez M.D. [id number] Glucose [Mass/Vol] 82 mg/dL Normal 65-99 [facility] Comment on above: Order Comment: [facility] has implemented the eGFR calculation approach that does not have a coefficient for race that conforms to the NKF-ASN Task Force Recommendations. Performed By: #### 4 [id number] #### LAB [address] [place] [address] Shawn Benítez M.D. [id number] HCO3 (Bld) [Moles/Vol] 19 mmol/L Low 21-32 [facility] Comment on above: Order Comment: [facility] has implemented the eGFR calculation approach that does not have a coefficient for race that conforms to the NKF-ASN Task Force Recommendations. Performed By: #### 4 [id number] #### LAB [address] [place] [address] Shawn Benítez M.D. [id number] Potassium [Moles/Vol] 3.4 mmol/L Low 3.5-5.[address] [facility] Comment on above: Order Comment: [facility] has implemented the eGFR calculation approach that does not have a coefficient for race that conforms to the NKF-ASN Task Force Recommendations. Performed By: #### 4 [id number] #### LAB [address] [place] [address] Shawn Benítez M.D. [id number] Sodium [Moles/Vol] 137 mmol/L Normal 135-145 [facility] Comment on above: Order Comment: [facility] has implemented the eGFR calculation approach that does not have a coefficient for race that conforms to the NKF-ASN Task Force Recommendations. Performed By: #### 4 [id number] #### LAB [address] [place] [address] Shawn Benítez M.D. [id number] Urea nitrogen [Mass/Vol] 10 mg/dL Normal 8-25 [facility] Comment on above: Order Comment: [facility] has implemented the eGFR calculation approach that does not have a coefficient for race that conforms to the NKF-ASN Task Force Recommendations. Performed By: #### 4 [id number] #### LAB [address] [place] [address] Shawn Beíntez M.D. [id number] Urea nitrogen/Creatinine [Mass ratio] 8.8 mg/mg Low 10.0-20.0 [facility] Comment on above: Order Comment: [facility] has implemented the eGFR calculation approach that does not have a coefficient for race that conforms to the NKF-ASN Task Force Recommendations. Performed By: #### 4 [id number] #### [facility] LAB [address] [place] [address] Shawn Benítez M.D. [id number] CBC WITH AUTO DIFFERENTIALon 10-07-2023 AUTO NRBC 0.0 % Normal [facility] Comment on above: Performed By: #### L [id number] #### [facility] LAB [address] [place] [id number] Shawn Benítez M.D. [id number] AUTO NRBC ABS COUNT 0.00 K/mcL Normal 0.00-0.00 [facility] Comment on above: Performed By: #### L [id number] #### LAB [address] [place] [address] Shawn Benítez M.D. [id number] BASOPHILS ABSOLUTE COUNT 0.07 K/mcL Normal 0.00-0.30 [facility] Comment on above: Performed By: #### L [id number] #### LAB [address] [place] [address] Shawn Benítez M.D. [id number] Basophils/100 WBC (Bld) 0.9 % Normal [facility] Comment on above: Performed By: #### L [id number] #### LAB [address] [place] [address] Shawn Benítez M.D. [id number] Eosinophils (Bld) [#/Vol] 0.07 10*3/uL Normal 0.00-0.5 0 [facility] Comment on above: Performed By: #### L [id number] #### LAB [address] [place] [address] Shawn Benítez M.D. [id number] Eosinophils/100 WBC (Bld) 0.9 % Normal [facility] Comment on above: Performed By: #### L [id number] #### LAB [address] [place] [address] Shawn Benítez M.D. [id number] Erythrocyte distribution width (RBC) [Ratio] 13.1 % Normal 11.6-14.8 [facility] Comment on above: Performed By: #### L [id number] #### LAB [address] [place] [address] Shawn Benítez M.D. [id number] Hematocrit (Bld) [Volume fraction] 42.1 % Normal 36.0-46.0 [facility] Comment on above: Performed By: #### L [id number] #### LAB [address] [place] [address] Shawn Benítez M.D. [id number] Hemoglobin (Bld) [Mass/Vol] 14.6 g/dL Normal 12.0-16. 0 [facility] Comment on above: Performed By: #### L [id number] #### LAB [address] [place] [address] Shawn Benítez M.D. [id number] IG ABSOLUTE 0.02 K/mcL Normal 0.00-0.30 [facility] Comment on above: Performed By: #### L [id number] #### LAB [address] [place] [address] Shawn Benítez M.D. [id number] IG PERCENT 0.30 % Normal [facility] Comment on above: Result Comment: The IG parameter is the percentage of metamyelocytes, myelocytes and promyelocytes. An immature granulocyte count (IG) of 1% or more suggests the possibility of infection, an IG count of 3% is very likely related to an infection. Performed By: #### L [id number] #### LAB [address] [place] [address] Shawn Benítez M.D. [id number] Lymphocytes (Bld) [#/Vol] 1.50 10*3/uL Normal 0.90-4.0 0 [facility] Comment on above: Performed By: #### L [id number] #### LAB [address] [place] [address] Shawn Benítez M.D. [id number] Lymphocytes/100 WBC (Bld) 19.9 % Normal [facility] Comment on above: Performed By: #### L [id number] #### LAB [address] [place] [address] Shawn Benítez M.D. [id number] MCH (RBC) [Entitic mass] 32.4 pg Normal 26.0-34.0 [facility] Comment on above: Performed By: #### L [id number] #### LAB [address] [place] [address] Shawn Benítez M.D. [id number] MCV (RBC) [Entitic vol] 93.6 fL Normal 80.0-100.0 [facility] Comment on above: Performed By: #### L [id number] #### LAB [address] [place] [address] Shawn Benítez M.D. [id number] MEAN CORPUSCULAR HEMOGLOBIN CONC 34.7 g/dL Normal 31.0-37.0 [facility] Comment on above: Performed By: #### L [id number] #### LAB [address] [place] [address] Shawn Benítez M.D. [id number] Monocytes (Bld) [#/Vol] 0.82 10*3/uL Normal 0.30-0.90 [facility] Comment on above: Performed By: #### L [id number] #### LAB [address] [place] [address] Shawn Benítez M.D. [id number] Monocytes/100 WBC (Bld) 10.9 % Normal [facility] Comment on above: Performed By: #### L [id number] #### LAB [address] [place] [address] Shawn Benítez M.D. [id number] NEUTROPHILS ABSOLUTE COUNT 5.07 K/mcL Normal 1.70-7.00 [facility] Comment on above: Performed By: #### L [id number] #### LAB [address] [place] [address] Shawn Benítez M.D. [id number] Neutrophils/100 WBC (Bld) 67.1 % Normal [facility] Comment on above: Performed By: #### L [id number] #### LAB [address] [place] [address] Shawn Benítez M.D. [id number] Platelet mean volume (Bld) [Entitic vol] 9.4 fL Normal 9.4-12.4 [facility] Comment on above: Performed By: #### L [id number] #### LAB [address] [place] [address] Shawn Benítez M.D. [id number] Platelets (Bld) [#/Vol] 303 10*3/uL Normal 150-400 [facility] Comment on above: Performed By: #### L [id number] #### LAB [address] [place] [address] Shawn Benítez M.D. [id number] RBC (Bld) [#/Vol] 4.50 10*6/uL Normal 4.00-5.20 [facility] Comment on above: Performed By: #### L [id number] #### MH LAB [address] [place], [place] [address] Shawn Benítez M.D. [id number] WBC (Bld) [#/Vol] 7.55 10*3/uL Normal 4.50-11.00 [facility] Comment on above: Performed By: #### L [id number] #### [facility] LAB [address] [place], [place] [address] Shawn Benítez M.D. [id number] CRP, INFLAMMATIONon 10-07-19 24 CRP (INFLAMMATION) < Normal 0.0-10.0 [facility] Comment on above: Performed By: #### 4 [id number] #### MH LAB [address] [place], [place] [address] Shawn Benítez M.D. [id number] CT HEAD OR BRAIN WITHOUT CON TRASTon 10-07-2023 CT HEAD OR BRAIN WITHOUT CONTRAST EXAMINATION: CT HEAD OR BRAIN WITHOUT CONTRAST HISTORY: ORDERING SYSTEM PROVIDED HISTORY: headache, TECHNOLOGIST PROVIDED HISTORY: Illness/Other Reason for exam: headache x 1 week djs 1747 Encounter Type: Initial Additional signs and symptoms: . ORDERING SYSTEM PROVIDED DIAGNOSIS CODES: R51.9 Nonintractable headache, unspecified chronicity pattern, unspecified headache type COMPARISON: CT head from May 18, 2023. MRI brain from April 21, 2022. TECHNIQUE: CT examination of the head without IV contrast. Dose reduction techniques were achieved by using automated exposure control and/or adjustment of mA and/or kV according to patient size and/or use of iterative reconstruction technique. FINDINGS: Intact calvaria. Clear bilateral mastoid air cells. Clear bilateral middle ears. Secretions adherent to the medial wall of the right maxillary antrum. Otherwise, clear paranasal sinuses. No unexpected extraaxial fluid collection. Minimal underlying nonspecific white matter disease which is better visualized on comparison MRI brain dated April 21, 2022. No evidence of acute intracranial hemorrhage, hydrocephalus, mass lesion, or midline shift. IMPRESSION: 1. Mild underlying white matter disease which is better visualized on comparison MRI from April 21, 2022. Common considerations include an element of underlying mild chronic microvascular ischemic disease and/or migraine-related white-matter lesions. 2. No superimposed acute intracranial abnormality. RNS/ads Workstation ID: [id number] Dictated by: SONG DE LUNA on WedOct 07, 2023 5:59:44 PM EDT Transcribed by: DANIEL NGUYEN on WedOct 07, 2023 6:31:32 PM EDT Finalized by: SONG DE LUNA on WedOct 07, 2023 6:58:30 PM EDT Normal [facility] Comment on above: Order Comment: Injur y/Trauma or Illness?:Illness/Other How long have you had these symptoms (acute/chronic)?:Acute Reason for exam?:headache x 1 week djs 1747 Type of Exam?:Initial Additional signs and symptoms?:. DRUGS OF ABUSE SCREEN, URINE on 10-07-2023 AMPHETAMINE SCREEN, URINE Not detected Normal No ne Detected [facility] Comment on above: Order Comment: Scree n results should be used for treatment purposes only. Result Comment: Urin e Amphetamine Cutoff: < 1000 ng/mL = None Detected Performed By: #### 4 [id number] ####[facility] LAB [address] [place] [address] Shawn Benítez M.D. [id number] BARBITURATE SCREEN URINE Not detected Normal Non e Detected [facility] Comment on above: Order Comment: Scree n results should be used for treatment purposes only. Result Comment: Urin e Barbiturates Cutoff: < 200 ng/mL = None Detected Performed By: #### 4 [id number] ####[facility] LAB [address] [place] [address] Shawn Benítez M.D. [id number] BENZODIAZEPINE SCREEN, URINE Not detected Normal None Detected [facility] Comment on above: Order Comment: Scree n results should be used for treatment purposes only. Result Comment: Urin e Benzodiazepine Cutoff: < 200 ng/mL = None Detected Performed By: #### 4 [id number] ####[facility] LAB [address] [place] [address] Shawn Benítez M.D. [id number] BUPRENORPHINE, URINE Not detected Normal None Detected [facility] Comment on above: Order Comment: Scree n results should be used for treatment purposes only. Result Comment: Urin e Buprenorphine Cutoff: < 5 ng/mL = None Detected Performed By: #### 4 [id number] ####[facility] LAB [address] [place] [address] Shawn Benítez M.D. [id number] CANNABINOID SCREEN URINE Not detected Normal Non e Detected [facility] Comment on above: Order Comment: Scree n results should be used for treatment purposes only. Result Comment: Urin e Cannabinoids Cutoff: < 50 ng/mL = None Detected Performed By: #### 4 [id number] #### LAB [address] [place] [address] Shawn Benítez M.D. [id number] COCAINE, SCREEN URINE Not detected Normal None Detected [facility] Comment on above: Order Comment: Scree n results should be used for treatment purposes only. Result Comment: Urin e Cocaine Cutoff: < 300 ng/mL = None Detected Performed By: #### 4 [id number] #### LAB [address] [place] [address] Shawn Benítez M.D. [id number] FENTANYL, URINE Not detected Normal None Detected [facility] Comment on above: Order Comment: Scree n results should be used for treatment purposes only. Result Comment: Urin e Fentanyl Cutoff: < 1 ng/mL = None Detected Performed By: #### 4 [id number] #### LAB [address] [place] [address] Shawn Benítez M.D. [id number] METHADONE SCREEN, URINE Not detected Normal None Detected [facility] Comment on above: Order Comment: Scree n results should be used for treatment purposes only. Result Comment: Urin e Methadone Cutoff: < 300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 RATIO 0.53 [facility] Work Phone: PV mean gradient 2 mmHg [facility] Work Phone: PV peak gradient 5 mmHg [facility] Work Phone: PV PK DAMIEN 1.17 m/s [facility] Work [facility]: PV VTI 20.50 cm [facility] Work Phone: PW 0.80 cm [facility] Work Phone: RA vol index 4CH (MOD) 11.29 mL/m2 [facility] Work Phone: Right atrium volume 4 chamber method of disks 21 mL [facility] Work Phone: RV Area diastolic 13.90 cm2 [facility] Work Phone: RV Area systolic 8.34 cm2 [facility] Work Phone: RV basal diam 3.10 cm [facility] Work Phone: RV Fractional area change 40.0 % [facility] Work Phone: RV long diam 7.50 [facility] Work Phone: RV mid diam 1.90 cm [facility] Work Phone: RVOT peak gradient 1 mmHg [facility] Work Phone: RVOT peak damien 0.49 m/s [facility] Work Phone: RVOT peak VTI 10.90 cm [facility] Work Phone: Sinus 2.80 cm [facility] Work Phone: STJ 2.20 cm [facility] Work Phone: Stroke Volume 44 cm/mL [facility] Work Phone: Stroke volume index 23 [facility] Work Phone: [facility] Work Phone: Cardiac echo study Procedure on 10-15-2022 Left ventricular chamber size is normal with concentric remodeling. Left ventricular ejection fraction is low-normal 50-55%. Right ventricular chamber size and systolic function are normal. Mild aortic regurgitation. Unable to assess right ventricular systolic pressure due to inadequate TR jet. Trivial to small circumferential pericardial effusion. Largest pocket adjacent to right atrium. Left Ventricle Chamber size is normal. Increased wall thickness. Concentric remodeling is present. Normal global systolic function. Regional wall motion is normal. Ejection fraction is low normal (50-55%). Diastolic function is normal. Right Ventricle Chamber size is normal. Systolic function is normal. Fractional area change equals 40.0 %. Left Atrium Chamber size is normal. Right Atrium Chamber size is normal. IVC/SVC The inferior vena cava structure has a diameter <21 mm and decreases >50% during inspiration. Mitral Valve Normal appearing leaflets. Leaflet mobility is normal. Trace regurgitation. No valve stenosis. Tricuspid Valve Normal leaflets. Leaflet mobility is normal. Trace regurgitation. No stenosis. Pulmonary artery systolic pressure (PASP) is unable to be estimated. Aortic Valve Trileaflet valve. Leaflet mobility is normal. Mild regurgitation. No stenosis. Mean gradient: 3 mmHg. Dimensionless Index by VTI: 0.72. Valve area continuity VTI: 2.25 cm2. The valve Vmax is 1.09 m/s. Pulmonic Valve Pulmonic valve not well visualized. Trace regurgitation. No stenosis. Peak gradient is 5 mmHg. Mean gradient is 2 mmHg. Pericardium Appears normal. Small circumferential pericardial effusion adjacent to the right atrium. Septum The atrial septum is normal. Aorta No dilation to extent seen. SOV: 2.80 cm. STJ: 2.20 cm. Ascendin.40 cm. Study Details A complete echocardiography study was performed. Imaging system used: [employer]. Indications Indications for study: pericardial dx/pericardial effusion and other - MCTD (mixed connective tissue disease), other specified pulmonary heart diseases. [facility] Radiology Study observation (narrative) [facility] No Panel Informationon 10-15 Interpretation and review of laboratory results Normal [facility] SEDIMENTATION RATE, AUTOMATE Don 10-15-2022 ESR (Bld) [Velocity] 18 mm/h NINF [facility] Interpretation and review of laboratory results Normal [facility] Albumin Elph [Mass/Vol]Order ed By: Jorge Wu on 10-14-2022 Albumin [Mass/Vol] 3.6 g/dL 2.9-4.4 [facility] Atypical perinuclear antineu trophil cytoplasmic antibodies measurementOrdered By: Jorge Wu on 10-14-2022 Neutrophil cytoplasmic Ab.perinuclear.atypical IF (S) [Titer] <1:20 titer Neg:<1:20 [facility] Comment on above: The atypical pANCA p attern has been observed in asignificant percentage of patients with ulcerative colitis,primary sclerosing cholangitis and autoimmune hepatitis. Basophil percentageOrdered B y: Jorge Wu on 10-14-2022 Basophil percentage < 0.2 AI 0.0-0.[address] [facility] Bilirubin [Mass/Vol] 0.20 mg/dL 0.20-1.00 [facility] Comment on above: For patients on eltr ombopag therapy, use of Dimension Pollard TBIL is not recommended. Chloride [Moles/Vol] 114 mmol/L 98-107 [facility] Glucose [Mass/Vol] 88 mg/dL 74-106 [facility] LDH [Catalytic activity/Vol] 150 U/L 84-246 [facility] Potassium [Moles/Vol] 3.5 mmol/L 3.5-5.1 [facility] Protein [Mass/Vol] 7.6 g/dL 6.4-8.2 [facility] Sodium [Moles/Vol] 139 mmol/L 136-145 [facility] Erythrocyte sedimentation ra teOrdered By: Jorge Wu on 10-14-2022 ESR (Bld) [Velocity] 12 mm/h 0-30 [facility] Interpretation of serum or p lasma protein pattern by immunofixation (narrative resultOrdered By: Jorge Wu on 10-14-2022 Protein Fractions Immunofixation Eliud [Interp] See comment [facility] Comment on above: Result: Not Observed Laboratory - Chemistry and C hemistry - challengeOrdered By: Jorge Wu on 10-14-2022 ALP [Catalytic activity/Vol] 111 U/L 45-117 [facility] ALT [Catalytic activity/Vol] 20 U/L 13-56 [facility] CO2 [Moles/Vol] 17.0 mmol/L 21.0-32.0 [facility] Urea nitrogen/Creatinine [Mass ratio] 10.5 mg/mg 10-20 [facility] No Panel InformationOrdered By: Jorge Wu on 10-14-2022 Addendum Document Comment . [facility] Comment on above: Protein electrophore sis scan will follow via computer,mail, or rate analyst delivery. Centromere B Antibody <0.2 AI 0.0-0.9 [facility] Ceruloplasmin 27.8 mg/dL 19.0-39.0 [facility] Comment on above: Performed at: [facility] [id number] Director: Kana Clinton PhD, Phone: [phone] Endomysial IgA Antibody Negative Negative [facility] Estimated GFR (MDRD) Amer 73 mL/min >60 [facility] Comment on above: GFR Calc Estimated GFR (MDRD) Non-Af Amer 60 mL/min >60 [facility] Comment on above: Non- GFR Calc Hepatitis A IgM Antibody Negative Negative [facility] Hepatitis B Core IgM Antibody Negative Negative [facility] Hepatitis C Antibody (EIA) Non-Reactive N on Reactive [facility] Hepatitis C Antibody Comment Comment . [facility] Comment on above: Not infected with HC V unless early or acute infection issuspected (which may be delayed in an immunocompromisedindividual), or other evidence exists to indicate HCVinfection. BRANCH CHIEF Antibody 3.3 AI 0.0-0.9 [facility] Serum DNA double strand anti body assay (units/volume)Ordered By: Jorge Wu on 10-14-2022 DNA double strand Ab Qn (S) [IU]/mL 0-9 [facility] Comment on above: Negative <5 Equivoca l 5 - 9 Positive >9 Serum IgA measurement (units /volume)Ordered By: Jorge Wu on 10-14-2022 IgA Qn (S) 322 mg/dL 87-352 [facility] Comment on above: Performed at: [facility] [place], [place] [id number] Director: Kana Clinton PhD, Phone: [phone] Serum Savana-1 antibody assay (u nits/volume)Ordered By: Jorge Wu on 10-14-2022 Savana-1 extractable nuclear Ab Qn (S) <0.2 AI 0.0-0.9 [facility] Serum Scl-70 extractable nuc lear antibody assay (units/volume)Ordered By: Jorge Wu on 10-14-2022 SCL-70 extractable nuclear Ab Qn (S) <0.2 AI 0.0-0.9 [facility] Serum Jo extractable nucl ear antibody detectionOrdered By: Jorge Wu on 10-14-2022 Jo extractable nuclear Ab Ql (S) 0.6 AI 0.0-0.9 [facility] Serum [id number] measu rement by electrophoresisOrdered By: Jorge Wu on 10-14-2022 Alpha 1 globulin Elph [Mass/Vol] 0.2 g/dL 0.0-0.4 [facility] Alpha 1 globulin Elph [Mass/Vol] 0.8 g/dL 0.4-1.0 [facility] Serum classic neutrophil cyt oplasmic antibody assay (units/volume)Ordered By: Jorge Wu on 10-14-2022 Neutrophil cytoplasmic Ab.classic Qn (S) <1:20 titer Neg:<1:20 [facility] Serum globulin measurement ( mass/volume)Ordered By: Jorge Wu on 10-14-2022 Globulin (S) [Mass/Vol] 3.8 g/dL 2.2-3.9 [facility] Serum mitochondria antibody detectionOrdered By: Jorge Wu on 10-14-2022 Mitochondria Ab Ql (S) <20.0 Units 0.0-20.0 [facility] Comment on above: Negative 0.0 - 20.0 Equivocal 20.1 - 24.9 Positive >24.9Mitochondrial (M2) Antibodies are found in 90-96% ofpatients with primary biliary cirrhosis.Performed at: [address] [id number] Director: Kana Clinton PhD, Phone: [phone] Serum or plasma C reactive p rotein measurement (mass/volume)Ordered By: Jorge Wu on 10-14-2022 CRP [Mass/Vol] mg/L 0.0-3.0 [facility] Comment on above: C-Reactive Protein ( CRP) provides useful information for thediagnosis, therapy and monitoring of inflammatory processesand associated diseases. For the evaluation of Relative Riskfor Cardiovascular Disease, a High Sensitivity CRP (HSCRP)should be ordered. Serum or plasma IgG measurem ent (mass/volume)Ordered By: Jorge Wu on 10-14-2022 IgG [Mass/Vol] 1298 mg/dL [phone] [facility] Serum or plasma IgM measurem ent (mass/volume)Ordered By: Jorge Wu on 10-14-2022 IgM [Mass/Vol] 72 mg/dL 26-217 [facility] Serum or plasma actin IgG an tibody assay (units/volume)Ordered By: Jorge Wu on 10-14-2022 Actin IgG Qn 9 Units 0-19 [facility] Comment on above: Negative 0 - 19 Weak positive 20 - 30 Moderate to strong positive >30 Actin Antibodies are found in 52-85% of patients with autoimmune hepatitis or chronic active hepatitis and in 22% of patients with primary biliary cirrhosis. Serum or plasma albumin ariana urement (mass/volume)Ordered By: Jorge Wu on 10-14-2022 Albumin [Mass/Vol] 3.3 g/dL 3.2-5.0 [facility] Serum or plasma albumin/glob ulin mass ratioOrdered By: Jorgemario Wu on 10-14-2022 Albumin/Globulin [Mass ratio] 0.8 {ratio} 0.9-2.4 [facility] Serum or plasma angiotensin converting enzyme measurement (enzymatic activity/volume)Ordered By: Jorgemario Wu on 10-14-2022 Angiotensin converting enzyme [Catalytic activity/Vol] 40 U/L 14-82 [facility] Serum or plasma beta globuli n measurement by electrophoresis (mass/volume)Ordered By: Jorgemario Wu on 10-14-2022 Beta globulin Elph [Mass/Vol] 1.3 g/dL 0.7-1.3 [facility] Serum or plasma calcium ariana urement (mass/volume)Ordered By: Jorge Wu on 10-14-2022 Calcium [Mass/Vol] 8.4 mg/dL 8.5-10.1 [facility] Serum or plasma creatinine m easurement (mass/volume)Ordered By: Jorge Wu on 10-14-2022 Creatinine [Mass/Vol] 1.05 mg/dL 0.55-1.02 [facility] Comment on above: The validity of the calculated GFR & GFRAA in patients over 70 years has not been determined. Clinical correlation is essential. Serum or plasma gamma globul in measurement by electrophoresis (mass/volume)Ordered By: Jorge Wu on 10-14-2022 Gamma globulin Elph [Mass/Vol] 1.4 g/dL 0.4-1.8 [facility] Serum or plasma hepatitis B virus surface antigen detection by immunoassayOrdered By: Jorge Wu on 10-14-2022 HBV surface Ag IA Ql Negative Negative [facility] Serum or plasma immunoelectr ophoresis interpretation (nominal result)Ordered By: Jorge Wu on 10-14-2022 Interpretation IEP [Interp] Comment . [facility] Comment on above: No monoclonality det ected. Serum or plasma urea nitroge n measurement (mass/volume)Ordered By: Jorge Wu on 10-14-2022 Urea nitrogen [Mass/Vol] 11 mg/dL 7-18 [facility] Serum perinuclear neutrophil cytoplasmic antibody titer by immunofluorescenceOrdered By: Jorge Wu on 10-14-2022 Neutrophil cytoplasmic Ab.perinuclear IF (S) [Titer] <1:20 titer Neg:<1:20 [facility] Comment on above: The presence of posi tive fluorescence exhibiting P-ANCA orC-ANCA patterns alone is not specific for the diagnosis ofWegener's Granulomatosis (WG) or microscopic polyangiitis.Decisions about treatment should not be based solely onANCA IFA results. The [employer] ANCA Group Consensusrecommends follow up testing of positive sera with both AL-3 and MPO-ANCA enzyme immunoassays. As many as 5% serumsamples are positive only by EIA. Ref. AM J Clin Aqoxwn5588;111:507-513. Serum tissue transglutaminas e IgA antibody assay (units/volume)Ordered By: Jorge Wu on 10-14-2022 tTG IgA Qn (S) <2 U/mL 0-3 [facility] Comment on above: Negative 0 - 3 Weak Positive 4 - 10 Positive >10 Tissue Transglutaminase (tTG) has been identified as the endomysial antigen. Studies have demonstr- ated that endomysial IgA antibodies have over 99% specificity for gluten sensitive enteropathy. Thin prep Papanicolaou smear with manual screeningOrdered By: Jorge Wu on 10-14-2022 Thin prep Papanicolaou smear with manual screening 15 U/L 15-37 [facility] Thin prep Papanicolaou smear with manual screening 8 5-15 [facility] Thin prep Papanicolaou smear with manual screening 1.0 0.7-1.7 [facility] Total protein bloodOrdered B y: Jorge Wu on 10-14-2022 Protein [Mass/Vol] 7.4 g/dL 6.0-8.5 [facility] Basophil percentageOrdered B y: Dr. Cabral on 10-13-2022 Chloride [Moles/Vol] 114 mmol/L 98-107 [facility] Glucose [Mass/Vol] 90 mg/dL 74-106 [facility] Potassium [Moles/Vol] 3.9 mmol/L 3.5-5.1 [facility] Sodium [Moles/Vol] 140 mmol/L 136-145 [facility] Laboratory - Chemistry and C hemistry - challengeOrdered By: Dr. Cabral on 10-13-2022 CO2 [Moles/Vol] 20.0 mmol/L 21.0-32.0 [facility] Urea nitrogen/Creatinine [Mass ratio] 7.3 mg/mg 10-20 [facility] No Panel InformationOrdered By: Dr. Cabral on 10-13-2022 Estimated GFR (MDRD) Amer 69 mL/min >60 [facility] Comment on above: GFR Calc Estimated GFR (MDRD) Non-Af Amer 57 mL/min >60 [facility] Comment on above: Non- GFR Calc Serum or plasma calcium ariana urement (mass/volume)Ordered By: Dr. Cabral on 10-13-2022 Calcium [Mass/Vol] 8.9 mg/dL 8.5-10.1 [facility] Serum or plasma creatinine m easurement (mass/volume)Ordered By: Dr. Cabral on 10-13-2022 Creatinine [Mass/Vol] 1.10 mg/dL 0.55-1.02 [facility] Comment on above: The validity of the calculated GFR & GFRAA in patients over 70 years has not been determined. Clinical correlation is essential. Serum or plasma urea nitroge n measurement (mass/volume)Ordered By: Dr. Cabral on 10-13-2022 Urea nitrogen [Mass/Vol] 8 mg/dL 7-18 [facility] Thin prep Papanicolaou smear with manual screeningOrdered By: Dr. Cabral on 10-13-2022 Thin prep Papanicolaou smear with manual screening 6 5-15 [facility] Whole blood hemoglobin A1c/t otal hemoglobin ratio (mass fraction)Ordered By: Dr. Cabral on 10-13-2022 HbA1c (Bld) [Mass fraction] 5.1 % 3.8-5.6 [facility] Comment on above: Normal < 5.7 % Predi abetic 5.7 - 6.4 % Diabetic >or= 6.5 % Please note range changes. Absolute lymphocyte countOrd ered By: Dr. Cabral on 08-04-2022 Lymphocytes Auto (Unsp spec) [#/Vol] 1.45 10*3/uL 0.83-4.51 [facility] Basophil percentageOrdered B y: Dr. Cabral on 08-04-2022 Basophils/100 WBC (Bld) 0.7 % 0-1 [facility] Chloride [Moles/Vol] 114 mmol/L 98-107 [facility] Eosinophils/100 WBC (Bld) 0.8 % 0-5 [facility] Glucose [Mass/Vol] 121 mg/dL 74-106 [facility] Comment on above: Fasting Glucose resu lt from 100 to 125 mg/dL suggests IMPAIRED HOMEOSTASIS per A.D.A. criteria. Neutrophils (Bld) [#/Vol] 5.2 10*3/uL 2.0-7.7 [facility] Neutrophils/100 WBC (Bld) 69.6 % 47-70 [facility] Potassium [Moles/Vol] 3.2 mmol/L 3.5-5.1 [facility] Sodium [Moles/Vol] 138 mmol/L 136-145 [facility] WBC (Bld) [#/Vol] 7.5 10*3/uL 4.4-11.0 [facility] Bilirubin Test strip Ql (U)O rdered By: Dr. Cabral on 08-04-2022 Bilirubin Ql (U) Negative Negative [facility] Blood erythrocytes count (nu mber/volume)Ordered By: Dr. Cabral on 08-04-2022 RBC (Bld) [#/Vol] 4.84 10*6/uL 4.2-5.[address] [facility] Blood hemoglobin measurement (mass/volume)Ordered By: Dr. Cabral on 08-04-2022 Hemoglobin (Bld) [Mass/Vol] 14.6 g/dL 12.0-15. 0 [facility] Blood lymphocytes/100 leukoc ytesOrdered By: Dr. Cabral on 08-04-2022 Lymphocytes/100 WBC (Bld) 19.5 % 19-41 [facility] Blood monocytes/100 leukocyt esOrdered By: Dr. Cabral on 08-04-2022 Monocytes/100 WBC (Bld) 9.0 % 0-10 [facility] Blood platelet mean volumeOr dered By: Dr. Cabral on 08-04-2022 Platelet mean volume (Bld) [Entitic vol] 10.1 fL 6.2-12.0 [facility] Determination of erythrocyte mean corpuscular volume (MCV)Ordered By: Dr. Cabral on 08-04-2022 MCV (RBC) [Entitic vol] 90.5 fL 81-99 [facility] Hematocrit Auto (Bld) [Volum e fraction]Ordered By: Dr. Cabral on 08-04-2022 Hematocrit (Bld) [Volume fraction] 43.8 % 37-47 [facility] Ketones Test strip Ql (U)Ord ered By: Dr. Cabral on 08-04-2022 Ketones Ql (U) 5 mg/dl Negative [facility] Laboratory - Chemistry and C hemistry - challengeOrdered By: Dr. Cabral on 08-04-2022 CO2 [Moles/Vol] 15.0 mmol/L 21.0-32.0 [facility] Urea nitrogen/Creatinine [Mass ratio] 7.3 mg/mg 10-20 [facility] Laboratory - Hematology and Cell countsOrdered By: Dr. Cabral on 08-04-2022 Erythrocyte distribution width (RBC) [Entitic vol] 43.2 fL 35.1-43.9 [facility] Erythrocyte distribution width (RBC) [Ratio] 13.2 % 11.6-14.6 [facility] Immature granulocytes/100 WBC (Bld) 0.400 % 0.0-0.9 [facility] Comment on above: IG% - Immature Granu locytes (promyelocytes, myelocytes and metamyelocytes) > 1% indicates that a LEFT SHIFT is Present. MCH (RBC) [Entitic mass] 30.2 pg 27.0-32.0 [facility] Nucleated RBC/100 WBC (Bld) [Ratio] 0 % 0-5 [facility] MCHC Auto (RBC) [Mass/Vol]Or dered By: Dr. Cabral on 08-04-2022 MCHC (RBC) [Mass/Vol] 33.3 g/dL 32-36 [facility] Nitrite Test strip Ql (U)Ord ered By: Dr. Cabral on 08-04-2022 Nitrite Ql (U) Negative Negative [facility] No Panel InformationOrdered By: Dr. Cabral on 08-04-2022 Estimated GFR (MDRD) Amer 70 mL/min >60 [facility] Comment on above: GFR Calc Estimated GFR (MDRD) Non-Af Amer 58 mL/min >60 [facility] Comment on above: Non- GFR Calc Platelets bldOrdered By: Dr. Cabral on 08-04-2022 Platelets (Bld) [#/Vol] 340 10*3/uL 150-450 [facility] Protein Test strip Ql (U)Ord ered By: Dr. Cabral on 08-04-2022 Protein Ql (U) 15 mg/dl Negative [facility] Serum or plasma calcium ariana urement (mass/volume)Ordered By: Dr. Cabral on 08-04-2022 Calcium [Mass/Vol] 8.7 mg/dL 8.5-10.1 [facility] Serum or plasma creatinine m easurement (mass/volume)Ordered By: Dr. Cabral on 08-04-2022 Creatinine [Mass/Vol] 1.09 mg/dL 0.55-1.02 [facility] Comment on above: The validity of the calculated GFR & GFRAA in patients over 70 years has not been determined. Clinical correlation is essential. Serum or plasma urea nitroge n measurement (mass/volume)Ordered By: Dr. Cabral on 04-04-2023 Urea nitrogen [Mass/Vol] 8 mg/dL 7-18 [facility] Thin prep Papanicolaou smear with manual screeningOrdered By: Dr. Cabral on 08-04-2022 Thin prep Papanicolaou smear with manual screening 9 5-15 [facility] Urine blood detectionOrdered By: Dr. Cabral on 08-04-2022 RBC Ql (U) Negative Negative [facility] Urine clarityOrdered By: Dr. Cabral on 08-04-2022 Clarity (U) Clear Clear [facility] Urine color determinationOrd ered By: Dr. Cabral on 08-04-2022 Color (U) Yellow Yellow [facility] Urine glucose detectionOrder ed By: Dr. Cabral on 08-04-2022 Glucose Ql (U) Normal mg/dl Normal [facility] Urine leukocyte esterase det ection by dipstickOrdered By: Dr. Cabral on 08-04-2022 Leukocyte esterase Test strip Ql (U) Negative Negative [facility] Urine pHOrdered By: Dr. Krishan marin on 08-04-2022 pH (U) 5.0 [pH] 5.0 - 8.0 [facility] Urine specific gravity measu rementOrdered By: Dr. Cabral on 08-04-2022 Specific gravity (U) [Rel density] 1.020 1.002-1.03 0 [facility] Urobilinogen Auto test strip Ql (U)Ordered By: Dr. Cabral on 08-04-2022 Urobilinogen Ql (U) Normal mg/dl Normal [facility] XR FOOT RIGHT 2 VIEWSon XR FOOT RIGHT 2 VIEWS EXAMINATION: XR FOOT RIGHT 2 VIEWS 06/04/2022 3:41 pm HISTORY: ORDERING SYSTEM PROVIDED HISTORY: Follow-up exam, TECHNOLOGIST PROVIDED HISTORY: Injury/Trauma Reason for exam: right foot fx f/u Cancer History: na Surgery, RadiationHistory: na Encounter Type: Subsequent/Follow-up Mechanism of injury: fall04/20/22 ORDERING SYSTEM PROVIDED DIAGNOSIS CODES: Z09 Follow-up exam COMPARISON: Right foot radiograph. FINDINGS: No change in alignment of comminuted and displaced fractures of the proximal 2nd, 3rd, and 4th metatarsals. Progressive bony bridging and callus formation consistent with healing. The joint spaces are preserved. Persistent dorsal foot soft tissue swelling. IMPRESSION: Progressive healing of displaced 2nd, 3rd, and 4th metatarsal fractures in stable alignment. Workstation ID: [id number] Dictated by: BARBRA BAILON on WedJun 05, 2022 10:41:19 AM EST Transcribed by: BARBRA BAILON on WedJun 05, 2022 10:41:19 AM EST Finalized by: BARBRA BAILON on WedJun 05, 2022 10:41:19 AM EST [facility] Comment on above: Order Comment: Injur y/Trauma or Illness?:Injury/Trauma How long have you had these symptoms (acute/chronic)?:Acute Reason for exam?:right foot fx f/u History of cancer?:na Surgeries, chemotherapy, or radiation?:na Type of Exam?:Subsequent/Follow-up Mechanism of injury?:fall04/20/22 XR FOOT RIGHT 2 VIEWSon 05-03 XR FOOT RIGHT 2 VIEWS EXAMINATION: XR FOOT RIGHT 2 VIEWS HISTORY: Fracture Injury/Trauma or Illness?:Injury/Traum a How long have you had these symptoms (acute/chronic)?:Acut e Reason for exam?:f/u right foot fx History of cancer?:na Surgeries, chemotherapy, or radiation?:na T14.8XXA Fracture COMPARISON: 04/20/2022 TECHNIQUE: 3 views of the right foot. IMPRESSION: FINDINGS/ Mineralization: Within normal limits. Bones: No significant change in alignment or radiographic appearance of the comminuted, mild to moderately displaced 2nd through 4th metatarsal base fractures (3rd metatarsal is laterally displaced by at least 1 shaft width). Joints: Normal joint spacing. Soft Tissues: Dorsal forefoot swelling is again seen. Workstation ID: [id number] Dictated by: MILADIS HERNÁNDEZ on WedMay 17, 2022 8:32:31 AM EST Transcribed by: MILADIS HERNNÁDEZ on WedMay 17, 2022 8:32:31 AM EST Finalized by: MILADIS HERNÁNDEZ on WedMay 17, 2022 8:32:31 AM EST [facility] Comment on above: Order Comment: Injur y/Trauma or Illness?:Injury/Trauma How long have you had these symptoms (acute/chronic)?:Acute Reason for exam?:f/u right foot fx History of cancer?:na Surgeries, chemotherapy, or radiation?:na Type of Exam?:Subsequent/Follow-up Mechanism of injury?:s/p fall Ova and parasitesOrdered By: Dr. Perkins on 05-12-2022 Ova and parasites identified LM Nom (Unsp spec) [facility] BEVERLY MULTIPLEX SCRN WITH REFL EXOrdered By: Anitha Rodrigez on 05-07-2022 Interpretation and review of laboratory results Abnormal [facility] Nuclear Ab Ql (S) Positive Abnormal Negative [facility] Comment on above: This test includes t he following antibodies: Centromere, Chromatin, DsDNA, Jo1, Ribosomal P, BRANCH CHIEF, ScL70, Sm/BRANCH CHIEF, Jo, SSA and SSB. A negative screen result means each antibody listed is negative. If positive, the individual antibody results will be reflexed. [facility] C3,C4on 05-07-2022 Complement C3 [Mass/Vol] 186 mg/dL 87 - 200 mg/dL [facility] Complement C4 [Mass/Vol] 48 mg/dL 18 - 52 mg/dL [facility] Interpretation and review of laboratory results Normal [facility] CKon 05-07-2022 CK [Catalytic activity/Vol] 32 U/L 30 - 184 U/L [facility] Interpretation and review of laboratory results Normal [facility] COMPREHENSIVE METABOLIC PANE Nikolay 05-07-2022 Albumin [Mass/Vol] 4.2 g/dL 3.5 - 5.0 g/dL [facility] ALP [Catalytic activity/Vol] 108 U/L 32 - 126 U/L [facility] ALT [Catalytic activity/Vol] 20 U/L 9 - 48 U/L [facility] Anion gap [Moles/Vol] 16 mmol/L 7 - 17 mmol/L [facility] AST [Catalytic activity/Vol] 20 U/L 10 - 39 U/L [facility] Bilirubin [Mass/Vol] 0.4 mg/dL NINF - 1.5 mg/dL [facility] Calcium [Mass/Vol] 8.7 mg/dL 8.6 - 10. 5 mg/dL [facility] Chloride [Moles/Vol] 109 mmol/L High 98 - 10 8 mmol/L [facility] CO2 [Moles/Vol] 17 mmol/L Low 21 - 31 mmol/L [facility] Creatinine [Mass/Vol] 1.07 mg/dL 0.50 - 1.20 mg/dL [facility] GFR/1.73 sq M.predicted CKD-EPI (S/P/Bld) [Vol rate/Area] 65 - PINF [facility] Comment on above: Reported eGFR is bas ed on the CKD-EPI 2020 equation using creatinine, age, and sex. Glucose [Mass/Vol] 88 mg/dL 70 - 99 mg/dL [facility] Interpretation and review of laboratory results Abnormal [facility] Osmolality Calc [Osmolality] 286 [facility] Potassium [Moles/Vol] 3.9 mmol/L 3.5 - 5.0 mmol/L [facility] Protein [Mass/Vol] 7.9 g/dL 6.4 - 8.3 g/dL [facility] Sodium [Moles/Vol] 138 mmol/L 135 - 145 mmol/L [facility] Urea nitrogen [Mass/Vol] 8 mg/dL 7 - 25 mg/dL [facility] Urea nitrogen/Creatinine [Mass ratio] 7 mg/mg [facility] Chronic hepatitis differenti ation between hepatitis B and C virus panelOrdered By: Cally Singh on 05-07-2022 HBV core IgG+IgM Ql (S) Negative Negative [facility] [place] HBV surface Ab IA Ql (S) Positive Abnormal Negative [facility] Comment on above: A positive result in dicates immunity through past immunization or prior infection. HBV surface Ag Ql (S) Negative Negative [facility] HCV Ab Ql (S) Negative Negative [facility] Interpretation and review of laboratory results Abnormal [facility] DIRECT ANTIGLOBULIN TEST (DA T)on 05-07-2022 RYAN, POLY Negative [facility] No Panel Informationon 05-07 [facility] URINE PROTEIN/CREA RATIO, RA NDOMon 05-07-2022 Creatinine (24H U) [Mass/Vol] 275.03 mg/dL [facility] Protein Unsp time (U) [Mass/Vol] 40 mg/dL [facility] Protein/Creatinine (U) [Mass ratio] 0.145 mg/g [facility] VITAMIN D (25-HYDROXY,TOTAL) on 05-07-2022 Interpretation and review of laboratory results Normal [facility] Vitamin D+Metabolites [Mass/Vol] 36.1 ng/mL 30.0 - 100.0 ng/mL [facility] Comment on above: <10 Deficiency 10-29 Insufficiency 30-100 Optimal Level >100 Possible Toxicity Vitamin D values hav e been shown to be falsely decreased in lipemic samples and should be interpreted with caution. [facility] XR Shoulder - left 2 Viewson 05-07-2022 IMPRESSION: No acute osseous abnormality. OLOGY EXAM: XR SHOULDER LEFT 3 VIEWS, 05/07/2022 11:13 AM CLINICAL INDICATIONS: pain after fall RELEVANT CLINICAL HISTORY: M25.512:Pain in joint of left shoulder COMPARISON: No prior studies available for comparison. FINDINGS: 3 images obtained. Soft Tissue: No soft tissue swelling evident. Bone: No acute osseous abnormality is identified. Joint: Acromioclavicular and glenohumeral joints are anatomically aligned. RADIOLOGY Daryl Leal MD - 05/07/2022 EXAM: XR SHOULDER LEFT 3 VIEWS, 05/07/2022 11:13 AM CLINICAL INDICATIONS: pain after fall RELEVANT CLINICAL HISTORY: M25.512:Pain in joint of left shoulder COMPARISON: No prior studies available for comparison. FINDINGS: 3 images obtained. Soft Tissue: No soft tissue swelling evident. Bone: No acute osseous abnormality is identified. Joint: Acromioclavicular and glenohumeral joints are anatomically aligned. IMPRESSION IMPRESSION: No acute osseous abnormality. [facility] Radiology Study observation (narrative) [facility] XR Shoulder - left 2 ViewsOr dered By: Daryl Leal on 05-07-2022 [facility] Work Phone: Absolute lymphocyte countOrd ered By: Dr. Perkins on 04-29-2022 Lymphocytes Auto (Unsp spec) [#/Vol] 1.50 10*3/uL 0.83-4.51 [facility] Basophil percentageOrdered B y: Dr. Perkins on 04-29-2022 Basophils/100 WBC (Bld) 1.0 % 0-1 [facility] Chloride [Moles/Vol] 112 mmol/L 98-107 [facility] Eosinophils/100 WBC (Bld) 1.4 % 0-5 [facility] Glucose [Mass/Vol] 88 mg/dL 74-106 [facility] Neutrophils (Bld) [#/Vol] 2.4 10*3/uL 2.0-7.7 [facility] Neutrophils/100 WBC (Bld) 49.7 % 47-70 [facility] Potassium [Moles/Vol] 3.4 mmol/L 3.5-5.1 [facility] Sodium [Moles/Vol] 141 mmol/L 136-145 [facility] WBC (Bld) [#/Vol] 4.9 10*3/uL 4.4-11.0 [facility] Blood erythrocytes count (nu mber/volume)Ordered By: Dr. Perkins on 04-29-2022 RBC (Bld) [#/Vol] 4.52 10*6/uL 4.2-5.[address] [facility] Blood hemoglobin measurement (mass/volume)Ordered By: Dr. Perkins on 04-29-2022 Hemoglobin (Bld) [Mass/Vol] 13.6 g/dL 12.0-15. 0 [facility] Blood lymphocytes/100 leukoc ytesOrdered By: Dr. Perkins on 04-29-2022 Lymphocytes/100 WBC (Bld) 30.7 % 19-41 [facility] Blood monocytes/100 leukocyt esOrdered By: Dr. Perkins on 04-29-2022 Monocytes/100 WBC (Bld) 17.0 % 0-10 [facility] Blood platelet mean volumeOr dered By: Dr. Perkins on 04-29-2022 Platelet mean volume (Bld) [Entitic vol] 9.6 fL 6.2-12.0 [facility] Determination of erythrocyte mean corpuscular volume (MCV)Ordered By: Dr. Perkins on 04-29-2022 MCV (RBC) [Entitic vol] 89.2 fL 81-99 [facility] Hematocrit Auto (Bld) [Volum e fraction]Ordered By: Dr. Perkins on 04-29-2022 Hematocrit (Bld) [Volume fraction] 40.3 % 37-47 [facility] Laboratory - Chemistry and C hemistry - challengeOrdered By: Dr. Perkins on 04-29-2022 CO2 [Moles/Vol] 21.0 mmol/L 21.0-32.0 [facility] Magnesium [Mass/Vol] 2.3 mg/dL 1.6-2.6 [facility] Urea nitrogen/Creatinine [Mass ratio] 6.1 mg/mg 10-20 [facility] Laboratory - Hematology and Cell countsOrdered By: Dr. Perkins on 04-29-2022 Erythrocyte distribution width (RBC) [Entitic vol] 43.2 fL 35.1-43.9 [facility] Erythrocyte distribution width (RBC) [Ratio] 13.4 % 11.6-14.6 [facility] Immature granulocytes/100 WBC (Bld) 0.200 % 0.0-0.9 [facility] Comment on above: IG% - Immature Granu locytes (promyelocytes, myelocytes and metamyelocytes) > 1% indicates that a LEFT SHIFT is Present. MCH (RBC) [Entitic mass] 30.1 pg 27.0-32.0 [facility] Nucleated RBC/100 WBC (Bld) [Ratio] 0 % 0-5 [facility] MCHC Auto (RBC) [Mass/Vol]Or dered By: Dr. Perkins on 04-29-2022 MCHC (RBC) [Mass/Vol] 33.7 g/dL 32-36 [facility] No Panel InformationOrdered By: Dr. Perkins on 04-29-2022 Estimated GFR (MDRD) Amer 79 mL/min >60 [facility] Comment on above: GFR Calc Estimated GFR (MDRD) Non-Af Amer 65 mL/min >60 [facility] Comment on above: Non- GFR Calc Platelets bldOrdered By: Dr. Perkins on 04-29-2022 Platelets (Bld) [#/Vol] 335 10*3/uL 150-450 [facility] Serum or plasma calcium ariana urement (mass/volume)Ordered By: Dr. Perkins on 04-29-2022 Calcium [Mass/Vol] 8.4 mg/dL 8.5-10.1 [facility] Serum or plasma creatinine m easurement (mass/volume)Ordered By: Dr. Perkins on 04-29-2022 Creatinine [Mass/Vol] 0.98 mg/dL 0.55-1.02 [facility] Comment on above: The validity of the calculated GFR & GFRAA in patients over 70 years has not been determined. Clinical correlation is essential. Serum or plasma urea nitroge n measurement (mass/volume)Ordered By: Dr. Perkins on 04-29-2022 Urea nitrogen [Mass/Vol] 6 mg/dL 7-18 [facility] Thin prep Papanicolaou smear with manual screeningOrdered By: Dr. Perkins on 04-29-2022 Thin prep Papanicolaou smear with manual screening 8 5-15 [facility] Absolute lymphocyte counton 03-31-2022 Lymphocytes Auto (Unsp spec) [#/Vol] 1.22 10*3/uL 0.83-4.51 [facility] Work Phone: Basophil percentageon 2021 Basophils/100 WBC (Bld) 0.6 % 0-1 [facility] Work Phone: Bilirubin [Mass/Vol] 0.40 mg/dL 0.20-1.00 [facility] Work Phone: Comment on above: For patients on eltr ombopag therapy, use of Dimension Pollard TBIL is not recommended. Chloride [Moles/Vol] 108 mmol/L 98-107 [facility] Work Phone: [phone] Eosinophils/100 WBC (Bld) 1.4 % 0-5 [facility] Work Phone: Glucose [Mass/Vol] 114 mg/dL 74-106 [facility] Work Phone: Comment on above: Fasting Glucose resu lt from 100 to 125 mg/dL suggests IMPAIRED HOMEOSTASIS per A.D.A. criteria. Neutrophils (Bld) [#/Vol] 7.1 10*3/uL 2.0-7.7 [facility] Work Phone: Neutrophils/100 WBC (Bld) 74.9 % 47-70 [facility] Work Phone: [phone] Potassium [Moles/Vol] 3.5 mmol/L 3.5-5.1 [facility] Work Phone: Protein [Mass/Vol] 7.9 g/dL 6.4-8.2 [facility] Work Phone: Sodium [Moles/Vol] 139 mmol/L 136-145 [facility] Work Phone: WBC (Bld) [#/Vol] 9.5 10*3/uL 4.4-11.0 [facility] Work Phone: Blood erythrocytes count (nu mber/volume)on 03-31-2022 RBC (Bld) [#/Vol] 4.76 10*6/uL 4.2-5.[address] [facility] Work Phone: Blood hemoglobin measurement (mass/volume)on 03-31-2022 Hemoglobin (Bld) [Mass/Vol] 13.9 g/dL 12.0-15. 0 [facility] Work Phone: Blood lymphocytes/100 leukoc yteson 03-31-2022 Lymphocytes/100 WBC (Bld) 12.9 % 19-41 [facility] Work Phone: [phone] Blood monocytes/100 leukocyt eson 03-31-2022 Monocytes/100 WBC (Bld) 9.7 % 0-10 [facility] Work Phone: Blood platelet mean volumeon 03-31-2022 Platelet mean volume (Bld) [Entitic vol] 10.0 fL 6.2-12.0 [facility] Work Phone: Determination of erythrocyte mean corpuscular volume (MCV)on 03-31-2022 MCV (RBC) [Entitic vol] 90.3 fL 81-99 [facility] Work Phone: Hematocrit Auto (Bld) [Volum e fraction]on 03-31-2022 Hematocrit (Bld) [Volume fraction] 43.0 % 37-47 [facility] Work Phone: Laboratory - Chemistry and C hemistry - challengeon 03-31-2022 ALP [Catalytic activity/Vol] 119 U/L 45-117 [facility] Work Phone: ALT [Catalytic activity/Vol] 27 U/L 13-56 [facility] Work Phone: CO2 [Moles/Vol] 21.0 mmol/L 21.0-32.0 [facility] Work Phone: Globulin (S) [Mass/Vol] 4.5 g/dL 2.2-4.2 [facility] Work Phone: Urea nitrogen/Creatinine [Mass ratio] 6.7 mg/mg 10-20 [facility] Work Phone: Laboratory - Hematology and Cell countson 03-31-2022 Erythrocyte distribution width (RBC) [Entitic vol] 43.3 fL 35.1-43.9 [facility] Work Phone: Erythrocyte distribution width (RBC) [Ratio] 13.1 % 11.6-14.6 [facility] Work Phone: Immature granulocytes/100 WBC (Bld) 0.500 % 0.0-0.9 [facility] Work Phone: Comment on above: IG% - Immature Granu locytes (promyelocytes, myelocytes and metamyelocytes) > 1% indicates that a LEFT SHIFT is Present. MCH (RBC) [Entitic mass] 29.2 pg 27.0-32.0 [facility] Work Phone: Nucleated RBC/100 WBC (Bld) [Ratio] 0 % 0-5 [facility] Work Phone: MCHC Auto (RBC) [Mass/Vol]on 03-31-2022 MCHC (RBC) [Mass/Vol] 32.3 g/dL 32-36 [facility] Work Phone: No Panel Informationon 03-31 Estimated GFR (MDRD) Amer 63 mL/min >60 [facility] Work Phone: Comment on above: GFR Calc Estimated GFR (MDRD) Non-Af Amer 52 mL/min >60 [facility] Work Phone: Comment on above: Non- GFR Calc Thyroid Stimulating Hormone (TSH) 0.68 uIU/mL 0.358-3.74 [facility] Work Phone: Platelets bldon 03-31-2022 Platelets (Bld) [#/Vol] 309 10*3/uL 150-450 [facility] Work Phone: Serum or plasma albumin ariana urement (mass/volume)on 03-31-2022 Albumin [Mass/Vol] 3.4 g/dL 3.2-5.0 [facility] Work Phone: Serum or plasma albumin/glob ulin mass ratioon 03-31-2022 Albumin/Globulin [Mass ratio] 0.8 {ratio} 0.9-2.4 [facility] Work Phone: Serum or plasma calcium ariana urement (mass/volume)on 03-31-2022 Calcium [Mass/Vol] 8.5 mg/dL 8.5-10.1 [facility] Work Phone: Serum or plasma creatinine m easurement (mass/volume)on 03-31-2022 Creatinine [Mass/Vol] 1.19 mg/dL 0.55-1.02 [facility] Work Phone: Comment on above: The validity of the calculated GFR & GFRAA in patients over 70 years has not been determined. Clinical correlation is essential. Serum or plasma urea nitroge n measurement (mass/volume)on 03-31-2022 Urea nitrogen [Mass/Vol] 8 mg/dL 7-18 [facility] Work Phone: Thin prep Papanicolaou smear with manual screeningon 03-31-2022 Thin prep Papanicolaou smear with manual screening 18 U/L 15-37 [facility] Work Phone: Thin prep Papanicolaou smear with manual screening 10 5-15 [facility] Work Phone: US DUPLEX VENOUS LEGS BILATE RALon 01-07-2022 US DUPLEX VENOUS LEGS BILATERAL Patient Info Name: BRIANA HARRIS Age: 46 years : 1975 Gender: Female Exam Date: 01/07/2022 3:09 PM Patient Status: Outpatient Slot Host: Zuleika Condon, BS, RDMS (AB), RVT Referring Physician: NÉSTOR LOZA ; Indications m79.89 - swelling of limb - pain, swelling Procedure Description 04218 Duplex examination using B-mode, color and spectral Doppler of extremity veins including responses to compression and other maneuvers; complete bilateral study. Conclusions * Right. * No evidence of deep or superficial vein thrombosis in the right lower extremity. * Left. * Acute, grossly occlusive, deep vein thrombosis in a single posterior tibial vein from the mid to distal left calf. * No other evidence of deep or superficial venous thrombosis of the left lower extremity. . Notification of Results: Results called to Dr. Perkins's office in [place] per patient request at 01/07/2022 3:45:00 PM. DG. Patient also advised to go to ED if unable to reach primary care physician, Dr. Perkins. Report Signatures Finalized by SHEYLA Ablerto DO on 01/07/2022 04:45 PM Normal [facility] US DUPLEX VENOUS LEGS BILATERAL Patient Info Name: BRIANA HARRIS Age: 46 years : 1975 Gender: Female Exam Date: 01/07/2022 3:09 PM Patient Status: Outpatient Slot Host: Zuleika Condon, BS, RDMS (AB), RVT Referring Physician: NÉSTOR LOZA ; Indications m79.89 - swelling of limb - pain, swelling Procedure Description 17890 Duplex examination using B-mode, color and spectral Doppler of extremity veins including responses to compression and other maneuvers; complete bilateral study. Conclusions * Right. * No evidence of deep or superficial vein thrombosis in the right lower extremity. * Left. * Acute, grossly occlusive, deep vein thrombosis in a single posterior tibial vein from the mid to distal left calf. * No other evidence of deep or superficial venous thrombosis of the left lower extremity. . Notification of Results: Results called to Dr. Perkins's office in [place] per patient request at 01/07/2022 3:45:00 PM. DG. Patient also advised to go to ED if unable to reach primary care physician, Dr. Perkins. Report Signatures Finalized by SHEYLA Alberto DO on 01/07/2022 04:45 PM Dictated by: ANDREW WINSTON III on WedJan 07, 2022 4:46:24 PM EDT Transcribed by: ANDREW WINSTON III on WedJan 07, 2022 4:46:24 PM EDT Finalized by: ANDREW WINSTON III on WedJan 07, 2022 4:46:24 PM EDT Normal [facility] Basophil percentageon 2021 Bilirubin [Mass/Vol] 0.20 mg/dL 0.20-1.00 [facility] Work Phone: Comment on above: For patients on eltr ombopag therapy, use of Dimension Pollard TBIL is not recommended. Chloride [Moles/Vol] 107 mmol/L 98-107 [facility] Work Phone: Glucose [Mass/Vol] 88 mg/dL 74-106 [facility] Work Phone: Potassium [Moles/Vol] 3.9 mmol/L 3.5-5.1 [facility] Work Phone: Protein [Mass/Vol] 8.3 g/dL 6.4-8.2 [facility] Work Phone: Sodium [Moles/Vol] 139 mmol/L 136-145 [facility] Work Phone: WBC (Bld) [#/Vol] 6.5 10*3/uL 4.4-11.0 [facility] Work Phone: Blood erythrocytes count (nu mber/volume)on 01-06-2022 RBC (Bld) [#/Vol] 4.57 10*6/uL 4.2-5.[address] [facility] Work Phone: Blood hemoglobin measurement (mass/volume)on 01-06-2022 Hemoglobin (Bld) [Mass/Vol] 13.6 g/dL 12.0-15. 0 [facility] Work Phone: Blood platelet mean volumeon 01-06-2022 Platelet mean volume (Bld) [Entitic vol] 9.5 fL 6.2-12.0 [facility] Work Phone: Determination of erythrocyte mean corpuscular volume (MCV)on 01-06-2022 MCV (RBC) [Entitic vol] 92.1 fL 81-99 [facility] Work Phone: Hematocrit Auto (Bld) [Volum e fraction]on 01-06-2022 Hematocrit (Bld) [Volume fraction] 42.1 % 37-47 [facility] Work Phone: Laboratory - Chemistry and C hemistry - challengeon 01-06-2022 ALP [Catalytic activity/Vol] 142 U/L 45-117 [facility] Work Phone: ALT [Catalytic activity/Vol] 28 U/L 13-56 [facility] Work Phone: CO2 [Moles/Vol] 22.0 mmol/L 21.0-32.0 [facility] Work Phone: Globulin (S) [Mass/Vol] 5.1 g/dL 2.2-4.2 [facility] Work Phone: Urea nitrogen/Creatinine [Mass ratio] 8.5 mg/mg 10-20 [facility] Work Phone: Laboratory - Hematology and Cell countson 01-06-2022 Erythrocyte distribution width (RBC) [Entitic vol] 43.3 fL 35.1-43.9 [facility] Work Phone: Erythrocyte distribution width (RBC) [Ratio] 12.9 % 11.6-14.6 [facility] Work Phone: MCH (RBC) [Entitic mass] 29.8 pg 27.0-32.0 [facility] Work Phone: MCHC Auto (RBC) [Mass/Vol]on 01-06-2022 MCHC (RBC) [Mass/Vol] 32.3 g/dL 32-36 [facility] Work Phone: No Panel Informationon 01-06 Estimated GFR (MDRD) Amer 52 mL/min >60 [facility] Work Phone: Comment on above: GFR Calc Estimated GFR (MDRD) Non-Af Amer 43 mL/min >60 [facility] Work Phone: Comment on above: Non- GFR Calc Thyroid Stimulating Hormone (TSH) 1.33 uIU/mL 0.358-3.74 [facility] Work Phone: Platelets bldon 01-06-2022 Platelets (Bld) [#/Vol] 350 10*3/uL 150-450 [facility] Work Phone: Serum or plasma albumin ariana urement (mass/volume)on 01-06-2022 Albumin [Mass/Vol] 3.2 g/dL 3.2-5.0 [facility] Work Phone: Serum or plasma albumin/glob ulin mass ratioon 01-06-2022 Albumin/Globulin [Mass ratio] 0.6 {ratio} 0.9-2.4 [facility] Work Phone: Serum or plasma calcium ariana urement (mass/volume)on 01-06-2022 Calcium [Mass/Vol] 8.4 mg/dL 8.5-10.1 [facility] Work Phone: Serum or plasma creatinine m easurement (mass/volume)on 01-06-2022 Creatinine [Mass/Vol] 1.41 mg/dL 0.55-1.02 [facility] Work Phone: Comment on above: The validity of the calculated GFR & GFRAA in patients over 70 years has not been determined. Clinical correlation is essential. Serum or plasma urea nitroge n measurement (mass/volume)on 01-06-2022 Urea nitrogen [Mass/Vol] 12 mg/dL 7-18 [facility] Work Phone: Thin prep Papanicolaou smear with manual screeningon 01-06-2022 Thin prep Papanicolaou smear with manual screening 17 U/L 15-37 [facility] Work Phone: Thin prep Papanicolaou smear with manual screening 10 5-15 [facility] Work Phone: CBCon 06-16-2021 Eosinophils/100 WBC (Bld) 2 % Normal 0.0-11.0 [facility] Comment on above: Performed By: #### D DIMER, CHEM7F, ACBC #### Testing performed at [address] [address] Lymphocytes/100 WBC (Bld) 25 % Normal 20.0-55.0 [facility] Comment on above: Performed By: #### D DIMER, CHEM7F, ACBC #### Testing performed at [address] [address] Monocytes/100 WBC (Bld) 13 % High 0.0-10.0 [facility] Comment on above: Performed By: #### D DIMER, CHEM7F, ACBC #### Testing performed at [address] [address] Neutrophils/100 WBC (Bld) 60 % Normal 37.0-75.0 [facility] Comment on above: Performed By: #### D DIMER, CHEM7F, ACBC #### Testing performed at [address] [address] DTYPE AUTO DIFF Normal [facility] Comment on above: Performed By: #### D DIMER, CHEM7F, ACBC #### Testing performed at [address] [address] Erythrocyte distribution width (RBC) [Ratio] 13.6 % Normal 11.5-14.5 [facility] Comment on above: Performed By: #### D DIMER, CHEM7F, ACBC #### Testing performed at [address] [address] Hematocrit (Bld) [Volume fraction] 42.6 % Normal 36.0-48.0 [facility] Comment on above: Performed By: #### D DIMER, CHEM7F, ACBC #### Testing performed at [address] [address] Hemoglobin (Bld) [Mass/Vol] 14.2 g/dL Normal 12.0-16. 0 [facility] Comment on above: Performed By: #### D DIMER, CHEM7F, ACBC #### Testing performed at [address] [address] MCH (RBC) [Entitic mass] 30.1 pg Normal 26.0-35.0 [facility] Comment on above: Performed By: #### D DIMER, CHEM7F, ACBC #### Testing performed at [address] [address] MCHC (RBC) [Mass/Vol] 33.3 g/dL Normal 27.0-37.0 [facility] Comment on above: Performed By: #### D DIMER, CHEM7F, ACBC #### Testing performed at [address] [address] MCV (RBC) [Entitic vol] 90.2 fL Normal 80.0-100.0 [facility] Comment on above: Performed By: #### D DIMER, CHEM7F, ACBC #### Testing performed at [address] [address] Platelet mean volume (Bld) [Entitic vol] 8.2 fL Normal 7.4-11.0 [facility] Comment on above: Performed By: #### D DIMER, CHEM7F, ACBC #### Testing performed at [address] [address] Platelets (Bld) [#/Vol] 335 10*3/uL Normal 130. 0-400. 0 [facility] Comment on above: Performed By: #### D DIMER, CHEM7F, ACBC #### Testing performed at [address] [address] RBC (Bld) [#/Vol] 4.72 10*6/uL Normal 4.0-5.4 [facility] Comment on above: Performed By: #### D DIMER, CHEM7F, ACBC #### Testing performed at [address] [address] WBC (Bld) [#/Vol] 6.5 10*3/uL Normal 3.6-11.0 [facility] Comment on above: Performed By: #### D DIMER, CHEM7F, ACBC #### Testing performed at [address] [address] CHEM 7 FASTINGon 06-16-2021 Chloride [Moles/Vol] 113 mmol/L High 98-107 [facility] Comment on above: Performed By: #### D DIMER, CHEM7F, ACBC #### Testing performed at [address] [address] CO2 [Moles/Vol] 17 mmol/L Critically low 22-30 [facility] Comment on above: Performed By: #### D DIMER, CHEM7F, ACBC #### Testing performed at [address] [address] Creatinine [Mass/Vol] 1.00 mg/dL Normal 0.52-1.04 [facility] Comment on above: Performed By: #### D DIMER, CHEM7F, ACBC #### Testing performed at [address] [address] EST. GFR, 77 ml/min/1.73sq.m [facility] Comment on above: Performed By: #### D DIMER, CHEM7F, ACBC #### Testing performed at [address] [address] EST. GFR,Non 64 ml/min/1.73sq.m Normal [facility] Comment on above: Performed By: #### D DIMER, CHEM7F, ACBC #### Testing performed at [address] [address] GFR Information Average GFR for 40-4 9 years old = 99. Normal [facility] Comment on above: Result Comment: Jig Grinder andre Kidney disease, GFR = <60. Kidney failure, GFR = <15. The GFR estimate is not adjusted for extreme body surface area or acute process, nor has it been validated for women or ethnic groups other than and . Performed By: #### D DIMER, CHEM7F, ACBC #### Testing performed at [place] [id number] Glucose [Mass/Vol] 92 mg/dL Normal 70-100 [facility] Comment on above: Result Comment: NORMAL <100 mg/dL PREDIABETES 101-126 mg/dL DIABETES 126 mg/dL or higher Performed By: #### D DIMER, CHEM7F, ACBC #### Testing performed at [address] [address] Potassium [Moles/Vol] 3.4 mmol/L Low 3.5-5.1 [facility] Comment on above: Performed By: #### D DIMER, CHEM7F, ACBC #### Testing performed at [address] [address] Sodium [Moles/Vol] 142 mmol/L Normal 136-145 [facility] Comment on above: Performed By: #### D DIMER, CHEM7F, ACBC #### Testing performed at [address] [address] Urea nitrogen [Mass/Vol] 12 mg/dL Normal 7-20 [facility] Comment on above: Performed By: #### D DIMER, CHEM7F, ACBC #### Testing performed at [address] [address] D DIMERon 06-16-2021 D DIMER 1.15 mg/L FEU Critically high <0.50 [facility] Comment on above: Result Comment: If r esult is greater than the cutoff value of 0.56 mg/L then the potential for PE or DVT exists. Other conditions exist which may cause a falsely elevated level. Please correlate clinically, including radiological findings and other clinical parameters. Performed By: #### D DIMER, CHEM7F, ACBC #### Testing performed at [address] [address] TROPONIN I, HIGH SENSITIVITY on 06-16-2021 TROPONIN I, HIGH SENSITIVITY 3 pg/mL Normal 0-12 [facility] Comment on above: Result Comment: Indeterminant: >12 to 100 pg/mL female >20 to 100 pg/mL male Indicative of myocardial injury. Serial sampling is recommended, a change of greater than or equal to 20 pg/mL is indicative of acute coronary syndrome. Performed By: #### T ROHS #### Testing performed at [address] [address] [address] PE STUDYon 06-11-2021 CT PE STUDY EXAMINATION: CT PE CHEST WITH CONTRAST on patient Briana Harris, date of 1975 HISTORY: Chest pain with elevated d-dimer. COMPARISON: None. TECHNIQUE: A contrast-enhanced PE protocol scan was performed. Sagittal and coronal reformatted images were produced. MIP (maximum intensity projection) images were performed. Dose reduction techniques were achieved by using automated exposure control and/or adjustment of mA and/or kV according to patient size and/or use of iterative reconstruction technique. FINDINGS: The timing of bolus is adequate. There is breathing motion artifact and beam hardening artifact. No filling defects are seen in the more central vessels to suggest pulmonary embolism. Some of the mid size and smaller peripheral vessels cannot be reliably evaluated. There is no mass or pathologic adenopathy mediastinum or shameka. The heart and great vessels are normal in size and configuration. Evaluation of lungs is limited. There are scattered areas of mild atelectasis and possible air trapping in both lungs. The lungs are otherwise clear. No endobronchial or endotracheal lesions are seen. Evaluation of the upper abdomen shows diffuse fatty change in the liver. There is a 5 mm calcification in the posterior left kidney. The rest of the upper abdomen is normal. No suspicious or destructive bone lesions are seen. IMPRESSION: Negative for pulmonary embolism in the more central vessels. Some of the mid size and smaller peripheral vessels cannot be reliably evaluated. Limited but grossly negative evaluation of lungs Left nephrolithiasis. Diffuse fatty change in the liver. By request, the exam was sent to clinical operations support for a call results at 3:06 PM on 06/11/2021. Normal [facility] CBC WITH AUTO DIFFERENTIALon 12-13-2019 Basophils (Bld) [#/Vol] 0.05 10*3/uL [facility] Basophils/100 WBC (Bld) 1.0 % [facility] Eosinophils (Bld) [#/Vol] 0.08 10*3/uL [facility] Eosinophils/100 WBC (Bld) 1.6 % [facility] Erythrocyte distribution width (RBC) [Entitic vol] 13.3 % 11.6 - 14.8 % [facility] Hematocrit (Bld) [Volume fraction] 43.9 % 36 - 46 % [facility] Hemoglobin (Bld) [Mass/Vol] 14.5 g/dL 12 - 16 g/dL [facility] Immature granulocytes (Bld) [#/Vol] 0.02 10*3/uL [facility] Immature granulocytes/100 WBC (Bld) 0.40 % [facility] Comment on above: The IG parameter is the percentage of metamyelocytes, myelocytes and promyelocytes. An immature granulocyte count (IG) of 1% or more suggests the possibility of infection, an IG count of 3% is very likely related to an infection. Interpretation and review of laboratory results Abnormal [facility] Lymphocytes (Bld) [#/Vol] 1.20 10*3/uL [facility] Lymphocytes/100 WBC (Bld) 23.9 % [facility] MCH (RBC) [Entitic mass] 30.3 pg 26 - 34 pg [facility] MCHC (RBC) [Mass/Vol] 33.0 g/dL 31 - 3 7 g/dL [facility] MCV (RBC) [Entitic vol] 91.8 fL 80 - 100 fL [facility] Monocytes (Bld) [#/Vol] 0.65 10*3/uL [facility] Monocytes/100 WBC (Bld) 12.9 % [facility] Neutrophils (Bld) [#/Vol] 3.03 10*3/uL [facility] Neutrophils/100 WBC (Bld) 60.2 % [facility] Nucleated RBC (Bld) [#/Vol] 0.00 10*3/uL [facility] Nucleated RBC/100 WBC (Bld) [Ratio] 0.0 % [facility] Platelet mean volume (Bld) [Entitic vol] 9.3 fL Low 9.4 - 12.4 fL [facility] Platelets (Bld) [#/Vol] 316 10*3/uL [facility] RBC (Bld) [#/Vol] 4.78 10*6/uL [facility] WBC (Bld) [#/Vol] 5.03 10*3/uL [facility] ealt CT PULMONARY ARTERIESon 12-01 EXAMINATION: CT PULMONARY ARTERIES HISTORY: ORDERING SYSTEM PROVIDED HISTORY: sob, TECHNOLOGIST PROVIDED HISTORY: Illness/Other Reason for exam: chest pain, SOB Encounter Type: Initial Additional signs and symptoms: . ORDERING SYSTEM PROVIDED DIAGNOSIS CODES: COMPARISON: Two-view chest from 12/13/2019. TECHNIQUE: CT angiography of the pulmonary arteries following the administration of intravenous contrast. Coronal and sagittal MIP images were performed. Dose reduction techniques were achieved by using automated exposure control and/or adjustment of mA and/or kV according to patient size and/or use of iterative reconstruction technique. CONTRAST: IOPAMIDOL 76 % INTRAVENOUS SOLUTION - 75 mL, FINDINGS: Soft tissues of the base of the neck and supraclavicular regions appear unremarkable. Limited views of the thyroid gland show no acute process, there are multiple scattered low densities most likely consistent with cysts. The trachea and esophagus appear to be unremarkable. There is a mild hiatal hernia without inflammation. Limited views of the upper abdomen show cholecystectomy clips along with sitd-ba-[id number] fatty changes of the liver. No axillary, mediastinal or hilar lymphadenopathy is noted. Heart size is not enlarged. No pericardial effusion is noted. No obvious acute mediastinal process is noted. The great vessels are unremarkable. There are no obvious filling defects to suggest pulmonary embolism bilaterally. No effusion or dense infiltrate or pneumothorax is noted. There appears to be minimal atelectasis along the minor fissure. In the lateral aspect of the right upper lobe there slight patchy scattered areas of haziness which may represent pneumonitis or early infiltrate. There are additional slight and less noticeable areas of patchy haziness noted in the middle lower lung zones. Lung markings appear to be unremarkable. No pleural thickening is noted. Subcutaneous tissues are unremarkable. Bone density is unremarkable. No bony lesions or advanced degenerative changes are noted. [facility] Interface, Rad In Michelle Speechq - 12/13/2019 6:33 PM EDT EXAMINATION: CT PULMONARY ARTERIES HISTORY: ORDERING SYSTEM PROVIDED HISTORY: sob, TECHNOLOGIST PROVIDED HISTORY: Illness/Other Reason for exam: chest pain, SOB Encounter Type: Initial Additional signs and symptoms: . ORDERING SYSTEM PROVIDED DIAGNOSIS CODES: COMPARISON: Two-view chest from 12/13/2019. TECHNIQUE: CT angiography of the pulmonary arteries following the administration of intravenous contrast. Coronal and sagittal MIP images were performed. Dose reduction techniques were achieved by using automated exposure control and/or adjustment of mA and/or kV according to patient size and/or use of iterative reconstruction technique. CONTRAST: IOPAMIDOL 76 % INTRAVENOUS SOLUTION - 75 mL, FINDINGS: Soft tissues of the base of the neck and supraclavicular regions appear unremarkable. Limited views of the thyroid gland show no acute process, there are multiple scattered low densities most likely consistent with cysts. The trachea and esophagus appear to be unremarkable. There is a mild hiatal hernia without inflammation. Limited views of the upper abdomen show cholecystectomy clips along with [id number] fatty changes of the liver. No axillary, mediastinal or hilar lymphadenopathy is noted. Heart size is not enlarged. No pericardial effusion is noted. No obvious acute mediastinal process is noted. The great vessels are unremarkable. There are no obvious filling defects to suggest pulmonary embolism bilaterally. No effusion or dense infiltrate or pneumothorax is noted. There appears to be minimal atelectasis along the minor fissure. In the lateral aspect of the right upper lobe there slight patchy scattered areas of haziness which may represent pneumonitis or early infiltrate. There are additional slight and less noticeable areas of patchy haziness noted in the middle lower lung zones. Lung markings appear to be unremarkable. No pleural thickening is noted. Subcutaneous tissues are unremarkable. Bone density is unremarkable. No bony lesions or advanced degenerative changes are noted. IMPRESSION: 1. No evidence for acute mediastinal process or pulmonary embolism. 2. Slight to mild atelectasis along the minor fissure. Slight to mild patchy areas of haziness in the lateral aspect of the right upper lobe which may represent early infiltrate or slight to mild pneumonitis. Additional slight less noticeable areas of haziness throughout the lungs bilaterally which may represent trace amounts of pneumonitis. No dense infiltrate or effusion noted. 3. No evidence for thoracic lymphadenopathy. 4. Mild hiatal hernia without inflammation or edema. Limited views of the upper abdomen show fatty changes of the liver and cholecystectomy clips. Workstation ID: [id number] [facility] 1. No evidence for acute mediastinal process or pulmonary embolism. 2. Slight to mild atelectasis along the minor fissure. Slight to mild patchy areas of haziness in the lateral aspect of the right upper lobe which may represent early infiltrate or slight to mild pneumonitis. Additional slight less noticeable areas of haziness throughout the lungs bilaterally which may represent trace amounts of pneumonitis. No dense infiltrate or effusion noted. 3. No evidence for thoracic lymphadenopathy. 4. Mild hiatal hernia without inflammation or edema. Limited views of the upper abdomen show fatty changes of the liver and cholecystectomy clips. Workstation ID: [id number] [facility] Chem 7on 12-13-2019 Anion gap [Moles/Vol] 12 mmol/L 10 - 2 0 mmol/L [facility] Chloride [Moles/Vol] 115 mmol/L High 98 - 10 8 mmol/L [facility] Creatinine [Mass/Vol] 1.12 mg/dL High 0.40 - 1.10 [facility] GFR/1.73 sq M predicted among non-blacks MDRD (S/P/Bld) [Vol rate/Area] The eGFR should be used for monitoring renal function only and not for medication dosing. [facility] GFR/1.73 sq M.predicted CKD-EPI (S/P/Bld) [Vol rate/Area] 61 >=60 mL/min/1.7 3 m2 [facility] Glucose [Mass/Vol] 82 mg/dL 65 - 99 mg/dL [facility] HCO3 [Moles/Vol] 17 mmol/L Low 21 - 32 mmol/L [facility] Interpretation and review of laboratory results Abnormal [facility] Potassium [Moles/Vol] 3.7 mmol/L 3.5 - 5.1 mmol/L [facility] Sodium [Moles/Vol] 140 mmol/L 135 - 145 mmol/L [facility] Urea nitrogen [Mass/Vol] 9 mg/dL 8 - 25 mg/dL [facility] Urea nitrogen/Creatinine [Mass ratio] 8.0 mg/mg Low [facility] ECG 12-LEADon 12-13-2019 Atrial Rate 91 BPM [facility] P Elizabeth 55 degrees [facility] P-R Interval 156 ms [facility] Q-T Interval 372 ms [facility] QRS Duration 78 ms [facility] QTC Calculation (Bezet) 457 ms [facility] R Elizabeth 60 degrees [facility] T Elizabeth 29 degrees [facility] Ventricular Rate 91 BPM [facility] th Normal sinus rhythm Possible Left atrial enlargement Borderline ECG ECG Cart Interpretation see physician note for interpretation. Confirmed by Susan Cartwright ([id number]) on 12/13/2019 8:53:58 PM [facility] NT Pro BNPon 12-13-2019 Interpretation and review of laboratory results Normal [facility] Natriuretic peptide.B prohormone N-Terminal [Mass/Vol] 62 pg/mL 0 - 300 pg/mL [facility] Pride Study Cut-offs Rule In: < /= 50 Years >450 pg/mL 51 Years - 75 Years >900 pg/mL 76 Years - 99 Years >1800 pg/mL Rule Out: All patients <300 pg/mL [facility] Otheron 12-13-2019 Extra Tube Hold for add-ons. [facility] Comment on above: Auto resulted. TROPONINon 12-13-2019 Troponin I.cardiac [Mass/Vol] Normal [facility] Troponin I.cardiac [Mass/Vol] ng/mL <=45 ng/L [facility] XR CHEST AP/PA AND LATon Interface, Rad In Fuji Speechq - 12/13/2019 9:39 PM EDT EXAMINATION: r VIEW XR CHEST AP/PA AND LAT, 12/13/2019 COMPARISON: Chest, 06/23/2019. HISTORY: Injury/Trauma or Illness?:Illness/Othe r How long have you had these symptoms (acute/chronic)?:Acut e CHEST PAIN COUGH IMPRESSION: 1. Some minimal thickening or scar seen along the right minor fissure. 2. Normal heart size. 3. No acute osseous abnormality. 4. Prior cholecystectomy. [employer] Workstation ID: [id number] [facility] EXAMINATION: r VIEW XR CHEST AP/PA AND LAT, 12/13/2019 COMPARISON: Chest, 06/23/2019. HISTORY: Injury/Trauma or Illness?:Illness/Othe r How long have you had these symptoms (acute/chronic)?:Acut e CHEST PAIN COUGH [facility] 1. Some minimal thickening or scar seen along the right minor fissure. 2. Normal heart size. 3. No acute osseous abnormality. 4. Prior cholecystectomy. [facility]dnb Workstation ID: [id number] [facility] CBC WITH AUTO DIFFERENTIALon 06-23-2019 Basophils (Bld) [#/Vol] 0.04 10*3/uL [facility] Basophils/100 WBC (Bld) 0.5 % [facility] Eosinophils (Bld) [#/Vol] 0.07 10*3/uL [facility] Eosinophils/100 WBC (Bld) 1.0 % [facility] Erythrocyte distribution width (RBC) [Entitic vol] 12.4 % 11.6 - 14.8 % [facility] Hematocrit (Bld) [Volume fraction] 37.4 % 36 - 46 % [facility] Hemoglobin (Bld) [Mass/Vol] 12.4 g/dL 12 - 16 g/dL [facility] Immature granulocytes (Bld) [#/Vol] 0.04 10*3/uL [facility] Immature granulocytes/100 WBC (Bld) 0.50 % [facility] Comment on above: The IG parameter is the percentage of metamyelocytes, myelocytes, and promyelocytes. Lymphocytes (Bld) [#/Vol] 1.03 10*3/uL [facility] Lymphocytes/100 WBC (Bld) 14.1 % [facility] MCH (RBC) [Entitic mass] 30.6 pg 26 - 34 pg [facility] MCHC (RBC) [Mass/Vol] 33.2 g/dL 31 - 3 7 g/dL [facility] MCV (RBC) [Entitic vol] 92.3 fL 80 - 100 fL [facility] Monocytes (Bld) [#/Vol] 0.81 10*3/uL [facility] Monocytes/100 WBC (Bld) 11.1 % [facility] Neutrophils (Bld) [#/Vol] 5.31 10*3/uL [facility] Neutrophils/100 WBC (Bld) 72.8 % [facility] Nucleated RBC (Bld) [#/Vol] 0.00 10*3/uL [facility] Nucleated RBC/100 WBC (Bld) [Ratio] 0.0 % [facility] Platelet mean volume (Bld) [Entitic vol] 9.1 fL 9 - 15.5 fL [facility] Platelets (Bld) [#/Vol] 284 10*3/uL [facility] RBC (Bld) [#/Vol] 4.05 10*6/uL [facility] eah WBC (Bld) [#/Vol] 7.30 10*3/uL [facility] CPK NO MBon 06-23-2019 CK [Catalytic activity/Vol] 65 U/L 40 - 170 U/L [facility] CRP, Inflammationon 06-23-19 20 CRP [Mass/Vol] 5.4 mg/L <=10.0 [facility] Chem 7on 06-23-2019 Anion gap [Moles/Vol] 10 mmol/L 10 - 2 0 mmol/L [facility] Chloride [Moles/Vol] 109 mmol/L High 98 - 10 8 mmol/L [facility] Creatinine [Mass/Vol] 0.99 mg/dL 0.40 - 1.10 [facility] GFR/1.73 sq M predicted among non-blacks MDRD (S/P/Bld) [Vol rate/Area] The eGFR should be used for monitoring renal function only and not for medication dosing. [facility] GFR/1.73 sq M.predicted CKD-EPI (S/P/Bld) [Vol rate/Area] 71 >=60 mL/min/1.7 3 m2 [facility] Glucose [Mass/Vol] 99 mg/dL 65 - 99 mg/dL [facility] HCO3 [Moles/Vol] 25 mmol/L 21 - 32 mmol/L [facility] Potassium [Moles/Vol] 3.7 mmol/L 3.5 - 5.1 mmol/L [facility] Sodium [Moles/Vol] 140 mmol/L 135 - 145 mmol/L [facility] Urea nitrogen [Mass/Vol] 8 mg/dL 8 - 25 mg/dL [facility] Urea nitrogen/Creatinine [Mass ratio] 8.1 mg/mg Low [facility] D-DIMER, QUANTITATIVEon 06-04 Fibrin D-dimer FEU (PPP) [Mass/Vol] 0.52 High 0.27 - 0.49 mcg/mL FEU [facility] Interpretation and review of laboratory results Abnormal [facility] A D-dimer concentration of <0.5 micrograms per milliliter FEU is considered a low probability for pulmonary embolus (PE) and deep venous thrombosis (DVT). Results of this test should always be interpreted in conjunction with the patient's medical history,clinical presentation, and other findings. Clinical diagnosis should not be based on the results of the D-dimer alone. [facility] Hepatic Function Panel (LFT) on 06-23-2019 Albumin [Mass/Vol] 3.0 g/dL Low 3.2 - 5.2 g/dL [facility] ALP [Catalytic activity/Vol] 135 U/L 40 - 150 U/L [facility] ALT [Catalytic activity/Vol] 40 U/L 14 - 65 U/L [facility] AST [Catalytic activity/Vol] 20 U/L 0 - 45 U/L [facility] Bilirubin [Mass/Vol] 0.2 mg/dL 0 - 1.3 mg/dL [facility] Bilirubin.conjugated [Mass/Vol] mg/dL 0 - 0.4 mg/dL [facility] Protein [Mass/Vol] 6.8 g/dL 6 - 8 g/dL [facility] alth Lipaseon 06-23-2019 Lipase [Catalytic activity/Vol] 164 U/L 73 - 393 U/L [facility] Otheron 06-23-2019 Extra Tube Hold for add-ons. [facility] Comment on above: Auto resulted. Interpretation and review of laboratory results Normal [facility] Interpretation and review of laboratory results Abnormal [facility] PT/INRon 06-23-2019 INR Coag (PPP) [Relative time] 1.0 {INR} [facility] Interpretation and review of laboratory results Normal [facility] PT Coag (PPP) [Time] 13.0 s [facility] During the induction phase of oral anticoagulation, the INR may not reflect the anticoagulation status of the patient. Therapeutic ranges for INR's are: Most clinical situations: INR 2.0-3.0 Mechanical Prosthetic Valve: INR 2.5-3.5 Critical: INR >5.0 [facility] Sedimentation Rateon 020 ESR (Bld) [Velocity] 27 mm/h High [facility] Comment on above: This is a corrected result. Previous result was 90 mm/hr on 06/23/2019 at 2032 EST Interpretation and review of laboratory results Abnormal [facility] TROPONINon 06-23-2019 Troponin I.cardiac [Mass/Vol] Normal [facility] Troponin I.cardiac [Mass/Vol] ng/mL <=45 ng/L [facility] TSH with Reflex Free T4on TSH Qn 1.06 m[IU]/L [facility] XR Chest 1 Viewon 06-23-2019 EXAMINATION: XR CHES T PA/AP 06/23/2019 6:43 pm HISTORY: ORDERING SYSTEM PROVIDED HISTORY: chest pain, TECHNOLOGIST PROVIDED HISTORY: Illness/Other Reason for exam: CHEST PAIN Cancer History: na Surgery, RadiationHistory: na Encounter Type: Initial Additional signs and symptoms: . ORDERING SYSTEM PROVIDED DIAGNOSIS CODES: FINDINGS: Lungs are clear and there are no effusions. The heart size is normal and the trachea is midline. There is no mediastinal widening. Bones are intact. Normal upper abdomen. [facility] Normal exam. Workstation ID: [id number] [facility] Interface, Rad In [employer]ji Speechq - 06/23/2019 7:17 PM EST EXAMINATION: XR CHEST PA/AP 06/23/2019 6:43 pm HISTORY: ORDERING SYSTEM PROVIDED HISTORY: chest pain, TECHNOLOGIST PROVIDED HISTORY: Illness/Other Reason for exam: CHEST PAIN Cancer History: na Surgery, RadiationHistory: na Encounter Type: Initial Additional signs and symptoms: . ORDERING SYSTEM PROVIDED DIAGNOSIS CODES: FINDINGS: Lungs are clear and there are no effusions. The heart size is normal and the trachea is midline. There is no mediastinal widening. Bones are intact. Normal upper abdomen. IMPRESSION: Normal exam. Workstation ID: [id number] [facility] XR FOOT RIGHT 3+ VIEWS (CANDIDO DARD)on 06-20-2019 No evidence of fracture. EHR/[employer] Workstation ID: [id number] [facility] EXAMINATION: XR FOOT RIGHT 3+ VIEWS (STANDARD) 06/20/2019 3:43 pm HISTORY: ORDERING SYSTEM PROVIDED HISTORY: pain, TECHNOLOGIST PROVIDED HISTORY: Illness/Other Reason for exam: pain/ no known injury Cancer History: na Surgery, RadiationHistory: na Encounter Type: Initial Additional signs and symptoms: . ORDERING SYSTEM PROVIDED DIAGNOSIS CODES: COMPARISON: None. FINDINGS: PA, oblique, and lateral views were performed. The joint surfaces are well maintained. There is no evidence of fracture, dislocation or destructive lesion. No periosteal reaction is seen. [facility] Live, Rad In [employer] Speechq - 06/20/2019 8:04 PM EST EXAMINATION: XR FOOT RIGHT 3+ VIEWS (STANDARD) 06/20/2019 3:43 pm HISTORY: ORDERING SYSTEM PROVIDED HISTORY: pain, TECHNOLOGIST PROVIDED HISTORY: Illness/Other Reason for exam: pain/ no known injury Cancer History: na Surgery, RadiationHistory: na Encounter Type: Initial Additional signs and symptoms: . ORDERING SYSTEM PROVIDED DIAGNOSIS CODES: COMPARISON: None. FINDINGS: PA, oblique, and lateral views were performed. The joint surfaces are well maintained. There is no evidence of fracture, dislocation or destructive lesion. No periosteal reaction is seen. IMPRESSION: No evidence of fracture. EHR/[employer] Workstation ID: [id number] [facility] BMPon 08-23-2018 Anion gap molar conc 10 mmol/L 10 - 20 mmol/L [facility] Calcium mass conc 7.8 mg/dL Low 8.4 - 10.2 mg/dL [facility] Chloride molar conc 114 mmol/L High 98 - 108 mmol/L [facility] Creatinine mass conc 1.16 mg/dL High 0.4 - 1 .1 mg/dL [facility] GFR/1.73 sq M predicted among non-blacks MDRD vol rate/area (S/P/Bld) The eGFR should be used for monitoring renal function only and not for medication dosing. [facility] GFR/1.73 sq M.predicted CKD-EPI vol rate/area (S/P/Bld) 59 Low >=60 mL/min/1.7 3 m2 [facility] Glucose mass conc 78 mg/dL 65 - 99 mg/dL [facility] HCO3 molar conc 21 mmol/L 21 - 32 mmol/L [facility] Interpretation and review of laboratory results Abnormal [facility] Potassium molar conc 3.6 mmol/L 3.5 - 5 .1 mmol/L [facility] Sodium molar conc 141 mmol/L 135 - 145 mmol/L [facility] Urea nitrogen mass conc 11 mg/dL 8 - 25 mg/dL [facility] Urea nitrogen/Creatinine mass ratio 9.5 mg/mg Low [facility] CBC WITH AUTO DIFFERENTIALon 08-23-2018 Basophils #/vol (Bld) 0.05 10*3/uL [facility] Basophils/100 WBC (Bld) 0.6 % [facility] Eosinophils #/vol (Bld) 0.13 10*3/uL [facility] Eosinophils/100 WBC (Bld) 1.5 % [facility] Erythrocyte distribution width Entitic volume (RBC) 13.0 % 11.6 - 14.8 % [facility] Hematocrit Volume Fraction (Bld) 38.8 % 36 - 46 % [facility] Hemoglobin mass conc (Bld) 12.8 g/dL 1 2 - 16 g/dL [facility] Immature granulocytes #/vol (Bld) 0.03 10*3/uL [facility] Immature granulocytes/100 WBC (Bld) 0.40 % [facility] Comment on above: The IG parameter is the percentage of metamyelocytes, myelocytes, and promyelocytes. Lymphocytes #/vol (Bld) 1.15 10*3/uL [facility] Lymphocytes/100 WBC (Bld) 13.7 % [facility] MCH Entitic mass (RBC) 31.1 pg 26 - 34 pg [facility] MCHC mass conc (RBC) 33.0 g/dL 31 - 37 g/dL [facility] MCV Entitic volume (RBC) 94.4 fL 80 - 100 fL [facility] Monocytes #/vol (Bld) 0.87 10*3/uL [facility] Monocytes/100 WBC (Bld) 10.4 % [facility] Neutrophils #/vol (Bld) 6.16 10*3/uL [facility] Neutrophils/100 WBC (Bld) 73.4 % [facility] Nucleated RBC #/vol (Bld) 0.00 10*3/uL [facility] Nucleated RBC/100 WBC Ratio (Bld) 0.0 % [facility] Platelet mean volume Entitic volume (Bld) 9.6 fL 9 - 15.5 fL [facility] Platelets #/vol (Bld) 270 10*3/uL [facility] RBC #/vol (Bld) 4.11 10*6/uL [facility] WBC #/vol (Bld) 8.39 10*3/uL [facility] Hepatic Function Panel (LFT) on 08-23-2018 Albumin mass conc 3.3 g/dL 3.2 - 5.2 g/dL [facility] ALP enzyme act/vol 126 U/L 40 - 150 U/L [facility] ALT enzyme act/vol 24 U/L 14 - 65 U/L [facility] AST enzyme act/vol 20 U/L 0 - 45 U/L [facility] alth Bilirubin mass conc 0.2 mg/dL 0 - 1.3 mg/dL [facility] Bilirubin.conjugated mass conc mg/dL 0 - 0.4 mg/dL [facility] Protein mass conc 7.3 g/dL 6 - 8 g/dL [facility] Lipaseon 08-23-2018 Lipase enzyme act/vol 149 U/L 73 - 3 93 U/L [facility] Otheron 08-23-2018 Extra Tube Hold for add-ons. [facility] Comment on above: Auto resulted. Interpretation and review of laboratory results Normal [facility] URINALYSISon 08-23-2018 Bacteria Auto Ql (U) None Seen None Se en /hpf [facility] Bilirubin Ql (U) Negative Negative [facility] th Clarity Refractometry automated Nom (U) Cloudy Abnormal Clear [facility] Color Nom (U) Yellow Colorless, Yellow [facility] Glucose Automated test strip mass conc (U) Negative Negative mg/dL [facility] Hemoglobin Automated test strip Ql (U) Large Abnormal Negative [facility] Interpretation and review of laboratory results Abnormal [facility] Ketones mass conc (U) Negative Negati ve mg/dL [facility] Leukocyte esterase Automated test strip Ql (U) Large Abnormal Negative [facility] Nitrite Automated test strip Ql (U) Negative Negative [facility] pH (U) 7.0 [pH] [facility] Protein mass conc (U) 30 Abnormal Negati ve mg/dL [facility] Comment on above: False positive resul ts may occur in urines with large amounts of hemoglobin, pH greater than 8.0, contrast medium, or disinfectants including ammonium compounds. RBC Auto #/area (Urine sed) >180 High [facility] Specific gravity Relative Density (U) 1.015 [facility] Urobilinogen mass conc (U) <2.0 <2.0 mg/d L [facility] WBC Auto #/area (Urine sed) >180 High [facility] Microscopic examination is performed on all urinalysis samples and only positive findings are reported. The test for blood on the chemical analytic portion of urinalysis may also be positive due to hemoglobinuria and myoglobinuria and if red blood cells are present they are quantified by microscopic examination. [facility] Urine Pregnancyon 08-23-2018 HCG ( test) Ql (U) Negative Negative [facility] Interpretation and review of laboratory results Normal [facility] CBC with Diffon 05-24-2018 Anisocytosis Ql (Bld) 1+ Abnormal None Seen [facility] Comment on above: Performed By: #### D DIMR #### Unless otherwise noted, all testing performed by [place] [address] CLIA: [id number] [employer]: Shawn Benítez M.D. Basophils #/vol (Bld) 0.0 K/mcL Normal 0-0.2 [facility] Comment on above: Performed By: #### D DIMR #### Unless otherwise noted, all testing performed by [place] [address] CLIA: [id number] [employer]: Shawn Benítez M.D. Basophils/100 WBC (Bld) 0.9 % Normal [facility] Comment on above: Performed By: #### D DIMR #### Unless otherwise noted, all testing performed by [place] [address] CLIA: [id number] [employer]: Shawn Benítez M.D. Eosinophils #/vol (Bld) 0.2 K/mcL Normal 0-0.[address] [facility] Comment on above: Performed By: #### D DIMR #### Unless otherwise noted, all testing performed by [place] [address] CLIA: [id number] [employer]: Shawn Benítez M.D. Eosinophils/100 WBC (Bld) 3.5 % Normal [facility] Comment on above: Performed By: #### D DIMR #### Unless otherwise noted, all testing performed by [place] [phone] CLIA: [id number] [employer]: Shawn Benítez M.D. Erythrocyte distribution width Ratio (RBC) 12.9 % Normal 10.0-14.4 [facility] Comment on above: Performed By: #### D DIMR #### Unless otherwise noted, all testing performed by [place] [phone] CLIA: [id number] [employer]: Shawn Benítez M.D. Hematocrit Volume Fraction (Bld) 39.3 % Normal 34.4-44.8 [facility] Comment on above: Performed By: #### D DIMR #### Unless otherwise noted, all testing performed by [place] [address] CLIA: [id number] [employer]: Shawn Benítez M.D. Hemoglobin mass conc (Bld) 12.8 g/dL Normal 11.6-15.4 [facility] Comment on above: Performed By: #### D DIMR #### Unless otherwise noted, all testing performed by [place] [address] CLIA: [id number] [employer]: Shawn Benítez M.D. Lymphocytes #/vol (Bld) 1.2 K/mcL Normal 1.0-3.7 [facility] Comment on above: Performed By: #### D DIMR #### Unless otherwise noted, all testing performed by [place] [address] CLIA: [id number] [employer]: Shawn Benítez M.D. Lymphocytes/100 WBC (Bld) 24.0 % Normal [facility] Comment on above: Performed By: #### D DIMR #### Unless otherwise noted, all testing performed by [place] [address] CLIA: [id number] [employer]: Shawn Benítez M.D. MCH Entitic mass (RBC) 30.0 pg Normal 27.9-33.9 [facility] Comment on above: Performed By: #### D DIMR #### Unless otherwise noted, all testing performed by [place] [address] CLIA: [id number] [employer]: Shawn Benítez M.D. MCHC mass conc (RBC) 32.6 g/dL Low 33.1-35.1 [facility] Comment on above: Performed By: #### D DIMR #### Unless otherwise noted, all testing performed by [place] [address] CLIA: [id number] [employer]: Shawn Benítez M.D. MCV Entitic volume (RBC) 92.2 fL Normal 82.6-98.9 [facility] Comment on above: Performed By: #### D DIMR #### Unless otherwise noted, all testing performed by [place] [address] CLIA: [id number] [employer]: Shawn Benítez M.D. Monocytes #/vol (Bld) 0.8 K/mcL High 0.1-0.6 [facility] Comment on above: Performed By: #### D DIMR #### Unless otherwise noted, all testing performed by [place] [phone] CLIA: [id number] [employer]: Shawn Benítez M.D. Monocytes/100 WBC (Bld) 15.4 % Normal [facility] Comment on above: Performed By: #### D DIMR #### Unless otherwise noted, all testing performed by [place] [phone] CLIA: [id number] [employer]: Shawn Benítez M.D. Neutrophils #/vol (Bld) 2.9 K/mcL Normal 1.2-6.[address] [facility] Comment on above: Performed By: #### D DIMR #### Unless otherwise noted, all testing performed by [place] [phone] CLIA: [id number] [employer]: Shawn Benítez M.D. Ovalcyte 1+ Abnormal None Seen [facility] Comment on above: Performed By: #### D DIMR #### Unless otherwise noted, all testing performed by [place] [address] CLIA: [id number] [employer]: Shawn Benítez M.D. Platelet mean volume Entitic volume (Bld) 7.7 fL Normal 7.0-10.6 [facility] Comment on above: Performed By: #### D DIMR #### Unless otherwise noted, all testing performed by [place] [address] CLIA: [id number] [employer]: Shawn Benítez M.D. Platelets #/vol (Bld) 262 K/mcL Normal 162-402 [facility] Comment on above: Performed By: #### D DIMR #### Unless otherwise noted, all testing performed by [place] [address] CLIA: [id number] [employer]: Shawn Benítez M.D. RBC #/vol (Bld) 4.26 M/mcL Normal 3.7-5.0 [facility] Comment on above: Performed By: #### D DIMR #### Unless otherwise noted, all testing performed by [place] [address] CLIA: [id number] [employer]: Shawn Benítez M.D. Segmented Neut % 56.2 % Normal [facility] Comment on above: Result Comment: Smea r reviewed to verify automated differential> Performed By: #### D DIMR #### Unless otherwise noted, all testing performed by [place] [address] CLIA: [id number] [employer]: Shawn Benítez M.D. WBC #/vol (Bld) 5.2 K/mcL Normal 3.4-10.6 [facility] Comment on above: Performed By: #### D DIMR #### Unless otherwise noted, all testing performed by [address] [address] CLIA: [id number] [employer]: Shawn Benítez M.D. MRSA Screenon 05-24-2018 MRSA DNA LUAN+probe Ql (Unsp spec) Test Name: MRSA Screen Culture Status: Final MRSA Screen: Negative Normal [facility] Comment on above: Performed By: #### D DIMR #### Unless otherwise noted, all testing performed by [address] [address] CLIA: [id number] [employer]: Shawn Benítez M.D. US TRANSVAGINAL NON OBon US TRANSVAGINAL NON OB Final Report* Accession No: [id number] Performed: May 24 2018 5:28AM Examination: US TRANSVAGINAL NON OB PELVIC ULTRASOUND HISTORY: Possible left ovarian torsion. COMPARISON: Pelvic ultrasound examination dated 05/23/2018. TECHNIQUE: Real time pelvic ultrasound examination was performed using Duplex Doppler by a transvaginal approach. FINDINGS: The uterus is normal in size and echogenicity measuring 6.4 cm in length. No focal myometrial lesions are seen. The endometrium is within normal limits with the stripe measuring up to 0.4 cm in thickness. A cervical nabothian cyst measuring up to 1.3 cm is noted. The ovaries are normal in size and echogenicity and demonstrate multiple follicles. The right ovary measures 2.6 x 2.1 x 1.6 cm, and the left ovary measures 1.7 x 1.5 x 1.1 cm. Arterial and venous blood flow is seen in the left ovary. Arterial blood flow is seen in the right ovary with venous flow in the right ovary not demonstrated. There is a left adnexal cystic structure measuring up to 2.1 x 1.1 x 1.4 cm. There is no significant free fluid. IMPRESSION: 1. No evidence of left ovarian torsion is seen. 2. There is a left adnexal cystic structure measuring up to 2.1 cm, possibly representing a paraovarian cyst. 3. No venous flow is demonstrated within the right ovary though venous flow was previously seen in the right ovary on the prior ultrasound examination dated 05/23/2018. Interpreting Physician: VLADIMIR VICENTE M.D. Trans: jwheel : cc: Normal [facility] CBC with Diffon 05-23-2018 Basophils #/vol (Bld) 0.0 K/mcL Normal 0-0.2 [facility] Comment on above: Performed By: #### C BCDIF, EDCTNI, LIPASE, CMET #### Unless otherwise noted, all testing performed by [place] [address] CLIA: [id number] [employer]: Shawn Benítez M.D. Basophils/100 WBC (Bld) 0.7 % [facility] Comment on above: Performed By: #### C BCDIF, EDCTNI, LIPASE, CMET #### Unless otherwise noted, all testing performed by [place] [address] CLIA: [id number] [employer]: Shawn Benítez M.D. Eosinophils #/vol (Bld) 0.2 K/mcL Normal 0-0.5 [facility] Comment on above: Performed By: #### C BCDIF, EDCTNI, LIPASE, CMET #### Unless otherwise noted, all testing performed by [place] [address] CLIA: [id number] [employer]: Shawn Benítez M.D. Eosinophils/100 WBC (Bld) 4.2 % [facility] Comment on above: Performed By: #### C BCDIF, EDCTNI, LIPASE, CMET #### Unless otherwise noted, all testing performed by [place] [address] CLIA: [id number] [employer]: Shawn Benítez M.D. Erythrocyte distribution width Ratio (RBC) 12.5 % Normal 10.0-14.4 [facility] Comment on above: Performed By: #### C BCDIF, EDCTNI, LIPASE, CMET #### Unless otherwise noted, all testing performed by [place] [address] CLIA: [id number] [employer]: Shawn Benítez M.D. Hematocrit Volume Fraction (Bld) 39.3 % Normal 34.4-44.8 [facility] Comment on above: Performed By: #### C BCDIF, EDCTNI, LIPASE, CMET #### Unless otherwise noted, all testing performed by [place] [address] CLIA: [id number] [employer]: Shawn Benítez M.D. Hemoglobin mass conc (Bld) 13.1 g/dL Normal 11.6-15.4 [facility] Comment on above: Performed By: #### C BCDIF, EDCTNI, LIPASE, CMET #### Unless otherwise noted, all testing performed by [place] [address] CLIA: [id number] [employer]: Shawn Benítez M.D. Lymphocytes #/vol (Bld) 1.1 K/mcL Normal 1.0-3.7 [facility] Comment on above: Performed By: #### C BCDIF, EDCTNI, LIPASE, CMET #### Unless otherwise noted, all testing performed by [address], [place] [address] CLIA: [id number] [employer]: Shawn Benítez M.D. Lymphocytes/100 WBC (Bld) 19.6 % Normal [facility] Comment on above: Performed By: #### C BCDIF, EDCTNI, LIPASE, CMET #### Unless otherwise noted, all testing performed by [place] [address] CLIA: [id number] [employer]: Shawn Benítez M.D. MCH Entitic mass (RBC) 30.5 pg Normal 27.9-33.9 [facility] Comment on above: Performed By: #### C BCDIF, EDCTNI, LIPASE, CMET #### Unless otherwise noted, all testing performed by [place] [address] CLIA: [id number] [employer]: Shawn Benítez M.D. MCHC mass conc (RBC) 33.4 g/dL Normal 33.1-35.1 [facility] Comment on above: Performed By: #### C BCDIF, EDCTNI, LIPASE, CMET #### Unless otherwise noted, all testing performed by [place] [phone] CLIA: [id number] [employer]: Shawn Benítez M.D. MCV Entitic volume (RBC) 91.2 fL Normal 82.6-98.9 [facility] Comment on above: Performed By: #### C BCDIF, EDCTNI, LIPASE, CMET #### Unless otherwise noted, all testing performed by [place] [address] CLIA: [id number] [employer]: Shawn Benítez M.D. Monocytes #/vol (Bld) 0.7 K/mcL High 0.1-0.6 [facility] Comment on above: Performed By: #### C BCDIF, EDCTNI, LIPASE, CMET #### Unless otherwise noted, all testing performed by [place] [address] CLIA: [id number] [employer]: Shawn Benítez M.D. Monocytes/100 WBC (Bld) 12.1 % Normal [facility] Comment on above: Performed By: #### C BCDIF, EDCTNI, LIPASE, CMET #### Unless otherwise noted, all testing performed by [place] [address] CLIA: [id number] [employer]: Shawn Benítez M.D. Neutrophils #/vol (Bld) 3.6 K/mcL Normal 1.2-6.9 [facility] Comment on above: Performed By: #### C BCDIF, EDCTNI, LIPASE, CMET #### Unless otherwise noted, all testing performed by [place] [address] CLIA: [id number] [employer]: Shawn Benítez M.D. Platelet mean volume Entitic volume (Bld) 7.7 fL Normal 7.0-10.6 [facility] Comment on above: Performed By: #### C BCDIF, EDCTNI, LIPASE, CMET #### Unless otherwise noted, all testing performed by [place] [address] CLIA: [id number] [employer]: Shawn Benítez M.D. Platelets #/vol (Bld) 290 K/mcL Normal 162-402 [facility] Comment on above: Performed By: #### C BCDIF, EDCTNI, LIPASE, CMET #### Unless otherwise noted, all testing performed by [place] [address] CLIA: [id number] [employer]: Shawn Benítez M.D. RBC #/vol (Bld) 4.31 M/mcL Normal 3.7-5.0 [facility] Comment on above: Performed By: #### C BCDIF, EDCTNI, LIPASE, CMET #### Unless otherwise noted, all testing performed by [place] [address] CLIA: [id number] [employer]: Shawn Benítez M.D. Segmented Neut % 63.4 % Normal [facility] Comment on above: Performed By: #### C BCDIF, EDCTNI, LIPASE, CMET #### Unless otherwise noted, all testing performed by [place] [phone] CLIA: [id number] [employer]: Shawn Benítez M.D. WBC #/vol (Bld) 5.6 K/mcL Normal 3.4-10.6 [facility] Comment on above: Performed By: #### C BCDIF, EDCTNI, LIPASE, CMET #### Unless otherwise noted, all testing performed by [place] [address] CLIA: [id number] [employer]: Shawn Benítez M.D. Chlamydia/GC/Trich Amp RNAon 05-23-2018 Chlamydia trach, Amp. RNA Genl Negative Normal Negative [facility] Comment on above: Performed By: #### D DIMR #### Unless otherwise noted, all testing performed by [place] [address] CLIA: [id number] [employer]: Shawn Benítez M.D. Neisseria Gonorrhoeae, Amp.RNA Negative Normal Negative [facility] Comment on above: Result Comment: [place] [address] Performed By: #### D DIMR #### Unless otherwise noted, all testing performed by [place] [address] CLIA: [id number] [employer]: Shawn Benítez M.D. Trichomonas vaginalis Amp.RNA Negative Normal Negative [facility] Comment on above: Result Comment: [place] [address] Performed By: #### D DIMR #### Unless otherwise noted, all testing performed by [place] [address] CLIA: [id number] [employer]: Shawn Benítez M.D. [facility] Metabolic [facility] 05-23-2018 Albumin mass conc 3.4 g/dL Normal 3.2-5.2 [facility] Comment on above: Performed By: #### C BCDIF, EDCTNI, LIPASE, CMET #### Unless otherwise noted, all testing performed by [place] [address] CLIA: [id number] [employer]: Shawn Benítez M.D. ALP enzyme act/vol 109 U/L Normal 40-[address] [facility] Comment on above: Performed By: #### C BCDIF, EDCTNI, LIPASE, CMET #### Unless otherwise noted, all testing performed by [place] [address] CLIA: [id number] [employer]: Shawn Benítez M.D. ALT enzyme act/vol 23 U/L Normal 14-[address] [facility] Comment on above: Result Comment: This test result might be falsely depressed or falsely elevated on samples drawn from patients taking Sulfasalazine and Sulfapyridine. Venipuncture should occur prior to taking either of these drugs. Performed By: #### C BCDIF, EDCTNI, LIPASE, CMET #### Unless otherwise noted, all testing performed by [place] [address] CLIA: [id number] [employer]: Shawn Benítez M.D. AST enzyme act/vol 20 U/L Normal 0-[address] [facility] Comment on above: Result Comment: This test result might be falsely depressed or falsely elevated on samples drawn from patients taking Sulfasalazine and Sulfapyridine. Venipuncture should occur prior to taking either of these drugs. Performed By: #### C BCDIF, EDCTNI, LIPASE, CMET #### Unless otherwise noted, all testing performed by [place] [address] CLIA: [id number] [employer]: Shawn Benítez M.D. Bilirubin mass conc 0.1 mg/dL Low 0.3-1.2 [facility] Comment on above: Performed By: #### C BCDIF, EDCTNI, LIPASE, CMET #### Unless otherwise noted, all testing performed by [place] [address] CLIA: [id number] [employer]: Shawn Benítez M.D. Calcium mass conc 8.3 mg/dL Low 8.4-10.2 [facility] Comment on above: Performed By: #### C BCDIF, EDCTNI, LIPASE, CMET #### Unless otherwise noted, all testing performed by [place] [address] CLIA: [id number] [employer]: Shawn Benítez M.D. Chloride molar conc 111 mmol/L High 98-108 [facility] Comment on above: Performed By: #### C BCDIF, EDCTNI, LIPASE, CMET #### Unless otherwise noted, all testing performed by [place] [address] CLIA: [id number] [employer]: Shawn Benítez M.D. CO2 molar conc 21 mmol/L Normal 21-32 [facility] Comment on above: Performed By: #### C BCDIF, EDCTNI, LIPASE, CMET #### Unless otherwise noted, all testing performed by [place] [address] CLIA: [id number] [employer]: Shawn Benítez M.D. Creatinine mass conc 1.02 mg/dL Normal 0.40-1.10 [facility] Comment on above: Performed By: #### C BCDIF, EDCTNI, LIPASE, CMET #### Unless otherwise noted, all testing performed by [place] [address] CLIA: [id number] [employer]: Shawn Benítez M.D. GFR/1.73 sq M predicted among blacks MDRD vol rate/area (S/P/Bld) mL/min/{1.73_m2} Normal [facility] Comment on above: Result Comment: Afri can [place]ran GFR Calc Performed By: #### C BCDIF, EDCTNI, LIPASE, CMET #### Unless otherwise noted, all testing performed by [place] [address] CLIA: [id number] [employer]: Shawn Benítez M.D. GFR/1.73 sq M predicted among non-blacks MDRD vol rate/area (S/P/Bld) mL/min/{1.73_m2} Normal [facility] Comment on above: Result Comment: Non- GFR Calc eGFR is an estimated Glomerular Filtration Rate based on the value of the patient's serum creatinine. In outpatients, eGFR should be used as a helpful tool in screening for CKD. In inpatients or patients with acute renal failure, eGFR represents the GFR at the moment of the draw and should be used with caution. Performed By: #### C BCDIF, EDCTNI, LIPASE, CMET #### Unless otherwise noted, all testing performed by [place] [address] CLIA: [id number] [employer]: Shawn Benítez M.D. Glucose mass conc 89 mg/dL Normal 70-99 [facility] Comment on above: Result Comment: This test result might be falsely depressed or falsely elevated on samples drawn from patients taking Sulfasalazine and Sulfapyridine. Venipuncture should occur prior to taking either of these drugs. Performed By: #### C BCDIF, EDCTNI, LIPASE, CMET #### Unless otherwise noted, all testing performed by [place] [address] CLIA: [id number] [employer]: Shawn Benítez M.D. Potassium molar conc 4.0 mmol/L Normal 3.5-5.1 [facility] Comment on above: Performed By: #### C BCDIF, EDCTNI, LIPASE, CMET #### Unless otherwise noted, all testing performed by [place] [address] CLIA: [id number] [employer]: Shawn Benítez M.D. Protein mass conc 7.3 g/dL Normal 6.0-8.0 [facility] Comment on above: Performed By: #### C BCDIF, EDCTNI, LIPASE, CMET #### Unless otherwise noted, all testing performed by [place] [address] CLIA: [id number] [employer]: Shawn Benítez M.D. Sodium molar conc 139 mmol/L Normal 135-145 [facility] Comment on above: Performed By: #### C BCDIF, EDCTNI, LIPASE, CMET #### Unless otherwise noted, all testing performed by [place] [address] CLIA: [id number] [employer]: Shawn Benítez M.D. Urea nitrogen mass conc 14 mg/dL Normal 8-25 [facility] Comment on above: Performed By: #### C BCDIF, EDCTNI, LIPASE, CMET #### Unless otherwise noted, all testing performed by [place] [phone] CLIA: [id number] [employer]: Shawn Benítez M.D. Culture, Urineon 05-23-2018 Culture, Urine Test Name: Culture, Urine Culture Status: Final Culture Report: Growth Micro Source: Urine ORGANISM ID: 1 - >100,000 CFU/ml STREPTOCOCCUS AGALACTIAE - (GROUP B) ANTIBIOTIC INTERPRETATION MONICA STATUS Ampicillin S <= 0.25 F Benzylpenicillin (other) S <= 0.06 F Ceftriaxone S <= 0.12 F Clindamycin R >= 1 F Vancomycin S 0.5 F Normal [facility] Comment on above: Performed By: #### D DIMR #### Unless otherwise noted, all testing performed by [address] [place] [address] CLIA: [id number] [employer]: Shawn Benítez M.D. ED Cardiac Troponin-Ion 05-04 Troponin I.cardiac mass conc ng/mL Normal < 45 [facility] Comment on above: Result Comment: Elev ation of troponin indicates some degree of myocardial necrosis but unless there is a significant rise and/or fall (if elevated) identified, it unlikely that an acute event has taken place Samples from patients routinely receiving high dose biotin therapy (100-300 mg/day) may show falsely decreased results. Please correlate clinically. Performed By: #### C BCDIF, EDCTNI, LIPASE, CMET #### Unless otherwise noted, all testing performed by [place] [address] CLIA: [id number] [employer]: Shawn Benítez M.D. Lipaseon 05-23-2018 Lipase enzyme act/vol 216 U/L Normal 73-393 [facility] Comment on above: Performed By: #### C BCDIF, EDCTNI, LIPASE, CMET #### Unless otherwise noted, all testing performed by [place] [address] CLIA: [id number] [employer] Fe[employer]: Shawn Benítez M.D. Test,Urine Qualon 05-23-2018 HCG.beta subunit ( test) Ql (U) Negative Normal Negative [facility] Comment on above: Result Comment: Rapi d test procedural control acceptable. If a negative result is obtained but is suspected, hCG levels may be too low or urine may be too dilute for detection. Another specimen should be collected after 48-72 hours and tested. If waiting 48 hours is not medically advisable, the test result should be confirmed with a more sensitive quantitative serum hCG test. Performed By: #### P REGUR, UA #### Unless otherwise noted, all testing performed by [address] [place], [place] [address] CLIA: [id number] [employer] Press Feeder: Shawn Benítez M.D. US TRANSVAGINAL NON OBon US TRANSVAGINAL NON OB Final Report* Accession No: [id number] Performed: May 23 2018 6:37PM Examination: US TRANSVAGINAL NON OB ULTRASOUND PELVIS ADDITIONAL CLINICAL INFORMATION: Abnormal uterine bleeding. Pelvic pain. COMPARISON: Prior CT pelvis 08/25/2014. PROCEDURE: Transvaginal ultrasound. Color and spectral Doppler ultrasound. FINDINGS: The uterus measures 6.1 x 4.3 x 2.7 cm. The endometrium measures 0.3 cm in thickness. Nabothian cysts are noted within the cervix. The right ovary measures 3 x 1.8 x 1.4 cm. The left ovary measures 2.1 x 1.6 x 1.4 cm. Approximately 1.3 cm hypoechoic structure is noted adjacent to the left ovary, likely an underlying cyst. Normal arterial and venous flow is noted within the right ovary with normal resistive index of 0.6. No blood flow is identified within the left ovary. IMPRESSION: 1. No blood flow is identified within the left ovary, raising possibility of left ovarian torsion. 2. Incidental 1.3 cm left ovarian cyst. 3. Normal appearance of the uterus. Normal thickness of the endometrium. 4. Normal appearance of the right ovary with normal blood flow within the right ovary. Critical results were called by Dr. Pedro Luis Pierre to Lisa cotto At 05/23/2018 7:24 PM EST. Interpreting Physician: PEDRO LUIS PIERRE M.D. Trans: bminni : cc: Normal [facility] Urinalysis, Routineon 2018 Bilirubin,Urine Negative Normal NEG;NEGATI VE [facility] Comment on above: Performed By: #### P CAL JOHNSON #### Unless otherwise noted, all testing performed by [facility] [address] [place], [place] [address] CLIA: [id number] [employer] Feeder: Shawn Benítez M.D. Blood,Urine Moderate Abnormal NEG;NEGATI VE [facility] Comment on above: Performed By: #### P REGUR, UA #### Unless otherwise noted, all testing performed by [place] [phone] CLIA: [id number] [employer] Feeder: Shawn Benítez M.D. Character Nom (U) Clear Normal [facility] Comment on above: Performed By: #### P REGUR, UA #### Unless otherwise noted, all testing performed by [place] [phone] CLIA: [id number] [employer] Feeder: Shawn Benítez M.D. Color Nom (U) Straw Normal [facility] Comment on above: Performed By: #### P REGUR, UA #### Unless otherwise noted, all testing performed by [place] [phone] CLIA: [id number] [employer]eder: Shawn Benítez M.D. Glucose Ql (U) Negative Normal NEG;NEGATI VE [facility] Comment on above: Performed By: #### P REGUR, UA #### Unless otherwise noted, all testing performed by [place] [phone] CLIA: [id number] [employer] Feeder: Shawn Benítez M.D. Ketone,Urine Negative Normal NEG;NEGATI VE [facility] Comment on above: Performed By: #### P REGUR, UA #### Unless otherwise noted, all testing performed by [place] [phone] CLIA: [id number] [employer] Feeder: Shawn Benítez M.D. Leuk.Esterase,Urine Negative Normal [facility] Comment on above: Performed By: #### P REGUR, UA #### Unless otherwise noted, all testing performed by [place] [address] CLIA: [id number] [employer] Feeder: Shawn Benítez M.D. Nitrite,Urine Negative Normal NEG;NEGATI VE [facility] Comment on above: Performed By: #### P REGUR, UA #### Unless otherwise noted, all testing performed by [place] [address] CLIA: [id number] [employer] Feeder: Shawn Benítez M.D. pH (U) 6.0 [pH] Normal 4.5-8.0 [facility] Comment on above: Performed By: #### P REGUR, UA #### Unless otherwise noted, all testing performed by [place] [address] CLIA: [id number] [employer] Feeder: Shawn Benítez M.D. Protein mass conc (U) Negative Normal NEG;NE GATI VE [facility] Comment on above: Performed By: #### P REGUR, UA #### Unless otherwise noted, all testing performed by [place] [address] CLIA: [id number] [employer]eder: Shawn Benítez M.D. RBC,Urine 3 /HPF Normal 0-5 [facility] Comment on above: Performed By: #### P REGUR, UA #### Unless otherwise noted, all testing performed by [place] [address] CLIA: [id number] [employer] Feeder: Shawn Jackelin, M.D. Specific Clare,Urine 1.009 Normal 1.003 -1.02 9 [facility] Comment on above: Performed By: #### P REGUR, UA #### Unless otherwise noted, all testing performed by [place] [address] CLIA: [id number] [employer] Feeder: Shawn Benítez M.D. Squamous Epithelial < 1 Normal 0-40 [facility] Comment on above: Performed By: #### P REGUR, UA #### Unless otherwise noted, all testing performed by [place] [address] CLIA: [id number] [employer] Feeder: Shawn Benítez M.D. Urobilinogen,Urine < 2.0 Normal <[address] [facility] Comment on above: Result Comment: Urob ilinogen, Urine Reference Range: <2.0 mg/dL Performed By: #### P REGUR, UA #### Unless otherwise noted, all testing performed by [place] [address] CLIA: [id number] [employer] Feeder: Shawn Benítez M.D. WBC,Urine 1 /HPF Normal 0-5 [facility] Comment on above: Performed By: #### P REGUR, UA #### Unless otherwise noted, all testing performed by [place] [address] CLIA: [id number] [employer] Feeder: Shawn Benítez M.D. Wet Prepon 05-23-2018 Wet Prep Test Name: Wet Prep Culture Status: Final Trichomonas vaginalis: None Seen Clue Cells: None Seen Yeast: None Seen Normal [facility] Comment on above: Performed By: #### W ETP #### Unless otherwise noted, all testing performed by [place] [address] CLIA: [id number] [employer] Feeder: Shawn Benítez M.D. Strep Screen Throat/Rapidon 05-06-2018 S. pyogenes Ag IA Ql (Unsp spec) Test Name: Strep Screen Throat/Rapid Culture Status: Final Culture Report: No Group A streptococci isolated. Rapid Strep A: Negative Negative rapid antigen tests will be followed-up with a culture. Rapid test procedural control acceptable. Micro Source: Throat Normal [facility] Comment on above: Performed By: #### S TRS #### Unless otherwise noted, all testing performed by [place] [address] CLIA: [id number] [employer]eder: Shawn Benítez M.D. D-Dimeron 03-14-2018 D-Dimer 0.33 mcg/ml (FEU) Normal < .5 [facility] Comment on above: Result Comment: This test is intended for use in conjunction with a clinical pretest probability (PTP) assessment model to exclude pulmonary embolism (PE) and deep vein thrombosis (DVT) in outpatients suspected of PE or DVT. Performed By: #### D DIMR #### Unless otherwise noted, all testing performed by [place] [address] CLIA: [id number] [employer]eder: Shawn Benítez M.D. Basic Metabolic Panelon 08-0 Calcium mass conc 8.2 mg/dL Low 8.4-10.2 [facility] Comment on above: Performed By: #### C HEM8 #### Unless otherwise noted, all testing performed by [place] [address] CLIA: [id number] [employer] Feeder: Shawn Benítez M.D. Chloride molar conc 112 mmol/L High 98-108 [facility] Comment on above: Performed By: #### C HEM8 #### Unless otherwise noted, all testing performed by [place] [address] CLIA: [id number] [employer] Feeder: Shawn Benítez M.D. CO2 molar conc 23 mmol/L Normal 21-32 [facility] Comment on above: Performed By: #### C HEM8 #### Unless otherwise noted, all testing performed by [place] [address] CLIA: [id number] [employer] Feeder: Shawn Benítez M.D. Creatinine mass conc 1.03 mg/dL Normal 0.40-1.10 [facility] Comment on above: Performed By: #### C HEM8 #### Unless otherwise noted, all testing performed by [place] [phone] CLIA: [id number] [employer] Feeder: Shawn Benítez M.D. GFR/1.73 sq M predicted among blacks MDRD vol rate/area (S/P/Bld) mL/min/{1.73_m2} Normal [facility] Comment on above: GFR Calc Result Comment: Afri can Andorran GFR Calc Performed By: #### C HEM8 #### Unless otherwise noted, all testing performed by [place] [address] CLIA: [id number] [employer] Feeder: Shawn Benítez M.D. GFR/1.73 sq M predicted among non-blacks MDRD vol rate/area (S/P/Bld) 59 mL/min/{1.73_m2} Low >60 [facility] Comment on above: Non- GFR Calc eGFR is an estimated Glomerular Filtration Rate based on the value of the patient's serum creatinine. In outpatients, eGFR should be used as a helpful tool in screening for CKD. In inpatients or patients with acute renal failure, eGFR represents the GFR at the moment of the draw and should be used with caution. Result Comment: Non- GFR Calc eGFR is an estimated Glomerular Filtration Rate based on the value of the patient's serum creatinine. In outpatients, eGFR should be used as a helpful tool in screening for CKD. In inpatients or patients with acute renal failure, eGFR represents the GFR at the moment of the draw and should be used with caution. Performed By: #### C HEM8 #### Unless otherwise noted, all testing performed by [place] [address] CLIA: [id number] [employer] Feeder: Shawn Benítez M.D. Glucose mass conc 75 mg/dL Normal 70-99 [facility] Comment on above: This test result milton ht be falsely depressed or falsely elevated on samples drawn from patients taking Sulfasalazine and Sulfapyridine. Venipuncture should occur prior to taking either of these drugs. Result Comment: This test result might be falsely depressed or falsely elevated on samples drawn from patients taking Sulfasalazine and Sulfapyridine. Venipuncture should occur prior to taking either of these drugs. Performed By: #### C HEM8 #### Unless otherwise noted, all testing performed by [place] [address] CLIA: [id number] [employer] Feeder: Shawn Benítez M.D. Interpretation and review of laboratory results Abnormal Invalid Interpretation Code [facility] Potassium molar conc 3.5 mmol/L Normal 3.5-5.1 [facility] Comment on above: Performed By: #### C HEM8 #### Unless otherwise noted, all testing performed by [place] [address] CLIA: [id number] [employer] Feeder: Shawn Benítez M.D. Sodium molar conc 142 mmol/L Normal 135-145 [facility] Comment on above: Performed By: #### C HEM8 #### Unless otherwise noted, all testing performed by [place] [address] CLIA: [id number] [employer] Feeder: Shawn Benítez M.D. Urea nitrogen mass conc 12 mg/dL Normal 8-25 [facility] Comment on above: Performed By: #### C HEM8 #### Unless otherwise noted, all testing performed by [place] [address] CLIA: [id number] [employer] Feeder: Shawn Benítez M.D. Clostridium difficile detect ion by polymerase chain reaction C. difficile DNA LUAN+probe Ql (Unsp spec) [facility] Work Phone: EP Panel Gastrointestinal pathogens panel LUAN+probe (Stl) [facility] Work Phone: Stool gastrointestinal hemog lobin detection by immunologic method Lower GI hemoglobin IA Ql (Stl) [facility] Work Phone: Stool lactoferrin detection by immunoassay Lactoferrin IA Ql (Stl) [facility] Work Phone: Vital Signs Date Time Vital Sign Value Performing Clinician Facility 01-16-2025 11:24-0400 Body height 165.[address] Danie Perkins MD Work Phone: [facility] 01-16-2025 11:24-0400 Body mass index (BMI) [Ratio] 29.6 kg/m2 Dr. Danie Perkins MD Work Phone: [facility] 01-16-2025 11:24-0400 Body temperature 98 [degF] Dr. Danie Perkins MD Work Phone: [facility] 01-16-2025 11:24-0400 Body weight 80.[address] Danie Perkins MD Work Phone: [facility] 01-16-2025 11:24-0400 Diastolic blood pressure 79 mm[Hg] Dr. Danie Perkins MD Work Phone: [facility] 01-16-2025 11:24-0400 Heart rate 95 /min Dr. Danie Perkins MD Work Phone: 7(529)319-275128 [place] [address] 01-16-2025 11:24-0400 Respiratory rate 16 /min Dr. Danie Perkins MD Work Phone: 9(373)367-887928 [place] [address] 01-16-2025 11:24-0400 SaO2% (BldA) [Mass fraction] 98 % Dr. Danie Perkins MD Work Phone: 4(479)420-845128 [place] [address] 01-16-2025 11:24-0400 Systolic blood pressure 110 mm[Hg] Dr. Danie Perkins MD Work Phone: 1(193)387-542428 [place] [address] 11-06-2024 13:01-0400 Body temperature 98.4 [degF] Dr. Danie Perkins MD Work Phone: 5(424)682-700728 [place] [address] 11-06-2024 13:01-0400 Body weight 76.[address] Danie Perkins MD Work Phone: 6(156)560-347728 [place] [address] 11-06-2024 13:01-0400 Diastolic blood pressure 82 mm[Hg] Dr. Danie Perkins MD Work Phone: 5(442)088-944628 [place] [address] 11-06-2024 13:01-0400 Heart rate 82 /min Dr. Danie Perkins MD Work Phone: 4(530)996-128028 [place] [address] 11-06-2024 13:01-0400 Respiratory rate 17 /min Dr. Danie Perkins MD Work Phone: 8(445)651-828928 [place] [address] 11-06-2024 13:01-0400 SaO2% (BldA) [Mass fraction] 98 % Dr. Danie Perkins MD Work Phone: 0(831)038-692728 [place] [address] 11-06-2024 13:01-0400 Systolic blood pressure 128 mm[Hg] Dr. Danie Perkins MD Work Phone: [facility] 08-31-2024 13:28-0400 Body height 165.1 cm Sophia Morse MD Work Phone: [facility] 08-31-2024 13:28-0400 Body mass index (BMI) [Ratio] 28.99 kg/m2 Sophia Morse MD Work Phone: [facility] 08-31-2024 13:28-0400 Body weight 79.02 kg Sophia Morse MD Work Phone: [facility] 08-31-2024 13:28-0400 Diastolic blood pressure 64 mm[Hg] Sophia Morse MD Work Phone: [facility] 08-31-2024 13:28-0400 Heart rate 100 /min Sophia Morse MD Work Phone: [facility] 08-31-2024 13:28-0400 SaO2% (BldA) [Mass fraction] 99 % Sophia Morse MD Work Phone: [facility] 08-31-2024 13:28-0400 Systolic blood pressure 118 mm[Hg] Sophia Morse MD Work Phone: [facility] 10-12-2023 15:13-0400 Body height 165.1 cm Krystina Vya PROPULSION GENERATOR REPAIRER-CURTAIN SUPERVISOR Work Phone: [facility] 10-12-2023 15:13-0400 Body mass index (BMI) [Ratio] 24.76 kg/m2 Krystina Bismodestoa PROPULSION GENERATOR REPAIRER-CURTAIN SUPERVISOR Work Phone: [facility] 10-12-2023 15:13-0400 Body weight 67.5 kg Krystina Bishara PROPULSION GENERATOR REPAIRER-CURTAIN SUPERVISOR Work Phone: [facility] 10-12-2023 15:13-0400 Diastolic blood pressure 66 mm[Hg] Krystina Vya PROPULSION GENERATOR REPAIRER-CURTAIN SUPERVISOR Work Phone: [facility] 10-12-2023 15:13-0400 Heart rate 109 /min Krystina Vya PROPULSION GENERATOR REPAIRER-CURTAIN SUPERVISOR Work Phone: [facility] 10-12-2023 15:13-0400 SaO2% (BldA) [Mass fraction] 96 % Krystina Patel PROPULSION GENERATOR REPAIRER-CURTAIN SUPERVISOR Work Phone: [facility] 10-12-2023 15:13-0400 Systolic blood pressure 116 mm[Hg] Krystina Patel APRN-CURTAIN SUPERVISOR Work Phone: [facility] 08-26-2023 08:08-0400 Body height 165.[address] Danie Perkins Work Phone: [facility] 08-26-2023 08:08-0400 Body mass index (BMI) [Ratio] 24.5 kg/m2 Dr. Danie Perkins Work Phone: [facility] 08-26-2023 08:08-0400 Body temperature 98.6 [degF] Dr. Daine Perkins Work Phone: [facility] 08-26-2023 08:08-0400 Body weight 66.[address] Danie Perkins Work Phone: [facility] 08-26-2023 08:08-0400 Diastolic blood pressure 80 mm[Hg] Dr. Danie Perkins Work Phone: [facility] 08-26-2023 08:08-0400 Heart rate 112 /min Dr. Danie Perkins Work Phone: [facility] 08-26-2023 08:08-0400 Respiratory rate 17 /min Dr. Danie Perkins Work Phone: [facility] 08-26-2023 08:08-0400 SaO2% (BldA) [Mass fraction] 99 % Dr. Danie Perkins Work Phone: [facility] 08-26-2023 08:08-0400 Systolic blood pressure 112 mm[Hg] Dr. Danie Perkins Work Phone: [facility] 06-07-2023 13:38-0500 Body mass index (BMI) [Ratio] 23.9 kg/m2 Dr. Danie Perkins Work Phone: [facility] 06-07-2023 13:38-0500 Body weight 65.[address] Danie Perkins Work Phone: [facility] 06-07-2023 13:38-0500 Diastolic blood pressure 78 mm[Hg] Dr. Danie Perkins Work Phone: [facility] 06-07-2023 13:38-0500 Heart rate 88 /min Dr. Danie Perkins Work Phone: [facility] 06-07-2023 13:38-0500 Respiratory rate 16 /min Dr. Danie Perkins Work Phone: [facility] 06-07-2023 13:38-0500 Systolic blood pressure 114 mm[Hg] Dr. Danie Perkins Work Phone: [facility] 04-22-2023 11:23-0500 Body height 165.1 cm Sophia Morse MD Work Phone: [facility] 04-22-2023 11:23-0500 Body mass index (BMI) [Ratio] 23.76 kg/m2 Sophia Morse MD Work Phone: [facility] 04-22-2023 11:23-0500 Body weight 64.77 kg Sophia Morse MD Work Phone: [facility] 04-22-2023 11:23-0500 Diastolic blood pressure 80 mm[Hg] Sophia Morse MD Work Phone: [facility] 04-22-2023 11:23-0500 Heart rate 106 /min Sophia Morse MD Work Phone: [facility] 04-22-2023 11:23-0500 SaO2% (BldA) [Mass fraction] 97 % Sophia Morse MD Work Phone: [facility] 04-22-2023 11:23-0500 Systolic blood pressure 102 mm[Hg] Sophia Morse MD Work Phone: [facility] 10-15-2022 15:40-0400 Body height 165.1 cm Sophia Morse MD Work Phone: 2(431)142-781597 [place] [address] 10-15-2022 15:40-0400 Body mass index (BMI) [Ratio] 28.62 kg/m2 Sophia Morse MD Work Phone: 3(917)293-932597 [place] [address] 10-15-2022 15:40-0400 Body weight 78.02 kg Sophia Morse MD Work Phone: 5(759)799-760897 [place] [address] 10-15-2022 15:40-0400 Diastolic blood pressure 82 mm[Hg] Sophia Morse MD Work Phone: 8(322)560-648797 [place] [address] 10-15-2022 15:40-0400 Heart rate 80 /min Sophia Morse MD Work Phone: 3(420)770-472097 [place] [address] 10-15-2022 15:40-0400 Systolic blood pressure 110 mm[Hg] Sophia Morse MD Work Phone: 9(786)730-339297 [place] [address] 10-15-2022 11:03-0400 Body height 165.1 cm Sophia Morse MD Work Phone: 4(493)920-035297 [place] [address] 10-15-2022 11:03-0400 Body mass index (BMI) [Ratio] 28.62 kg/m2 Sophia Morse MD Work Phone: 3(362)987-409297 [address] 10-15-2022 11:03-0400 Body weight 78.02 kg Sophia Morse MD Work Phone: 1(987)960-344297 [place] [address] 10-15-2022 11:03-0400 Diastolic blood pressure 82 mm[Hg] Sophia Morse MD Work Phone: 0(911)045-637897 [place] [address] 10-15-2022 11:03-0400 Heart rate 80 /min Sophia Morse MD Work Phone: 3(363)631-712397 [place] [address] 10-15-2022 11:03-0400 SaO2% (BldA) [Mass fraction] 97 % Sophia Morse MD Work Phone: [facility] 10-15-2022 11:03-0400 Systolic blood pressure 110 mm[Hg] Sophia Morse MD Work Phone: [facility] 10-13-2022 14:45-0400 Body height 165.[address] Danie Perkins Work Phone: [facility] 10-13-2022 14:45-0400 Body mass index (BMI) [Ratio] 26.7 kg/m2 Dr. Danie Perkins Work Phone: [facility] 10-13-2022 14:45-0400 Body temperature 98.2 [degF] Dr. Danie Perkins Work Phone: [facility] 10-13-2022 14:45-0400 Body weight 72.[address] Danie Perkins Work Phone: [facility] 10-13-2022 14:45-0400 Diastolic blood pressure 70 mm[Hg] Dr. Danie Perkins Work Phone: [facility] 10-13-2022 14:45-0400 Heart rate 97 /min Dr. Danie Perkins Work Phone: [facility] 10-13-2022 14:45-0400 Respiratory rate 17 /min Dr. Danie Perkins Work Phone: [facility] 10-13-2022 14:45-0400 SaO2% (BldA) [Mass fraction] 99 % Dr. Danie Perkins Work Phone: [facility] 10-13-2022 14:45-0400 Systolic blood pressure 108 mm[Hg] Dr. Danie Perkins Work Phone: [facility] 08-17-2022 09:09-0400 Body mass index (BMI) [Ratio] 26.8 kg/m2 Dr. Danie Perkins Work Phone: [facility] 08-17-2022 09:09-0400 Body weight 73.[address] Danie Perkins Work Phone: [facility] 06-15-2022 14:54-0500 Body height 165.[address] Danie Perkins Work Phone: [facility] 06-15-2022 14:54-0500 Body mass index (BMI) [Ratio] 27.3 kg/m2 Dr. Danie Perkins Work Phone: [facility] 06-15-2022 14:54-0500 Body temperature 99 [degF] Dr. Danie Perkins Work Phone: [facility] 06-15-2022 14:54-0500 Body weight 74.[address] Danie Perkins Work Phone: [facility] 06-15-2022 14:54-0500 Diastolic blood pressure 78 mm[Hg] Dr. Danie Perkins Work Phone: [facility] 06-15-2022 14:54-0500 Heart rate 115 /min Dr. Danie Perkins Work Phone: [facility] 06-15-2022 14:54-0500 Respiratory rate 16 /min Dr. Danie Perkins Work Phone: [facility] 06-15-2022 14:54-0500 Systolic blood pressure 124 mm[Hg] Dr. Danie Perkins Work Phone: [facility] 05-14-2022 15:30-0500 Body height 165.1 cm Eddie Aldana MD Work Phone: [facility] 05-14-2022 15:30-0500 Body mass index (BMI) [Ratio] 26.63 kg/m2 Eddie Aldana MD Work Phone: [facility] 05-14-2022 15:30-0500 Body weight 72.58 kg Eddie Aldana MD Work Phone: [facility] 05-07-2022 08:52-0500 Body height 165.1 cm Sophia Morse MD Work Phone: [facility] 05-07-2022 08:52-0500 Body mass index (BMI) [Ratio] 28.29 kg/m2 Sophia Morse MD Work Phone: [facility] 05-07-2022 08:52-0500 Body weight 77.11 kg Sophia Morse MD Work Phone: [facility] Comment on above: with boot 05-07-2022 08:52-0500 Diastolic blood pressure 64 mm[Hg] Sophia Morse MD Work Phone: [facility] 05-07-2022 08:52-0500 Heart rate 112 /min Sophia Morse MD Work Phone: 1(792)519-032097 [place] [address] 05-07-2022 08:52-0500 SaO2% (BldA) [Mass fraction] 97 % Sophia Morse MD Work Phone: [facility] Comment on above: room air 05-07-2022 08:52-0500 Systolic blood pressure 114 mm[Hg] Sophia Morse MD Work Phone: [facility] 12-30-2021 21:48-0400 Diastolic blood pressure 102 mm[Hg] Dr. Danie Perkins Work Phone: [facility] Work Phone: 12-30-2021 21:48-0400 Systolic blood pressure 140 mm[Hg] Dr. Danie Perkins Work Phone: [facility] Work Phone: 12-30-2021 13:09-0400 Body height 165.[address] Danie Perkins Work Phone: [facility] Work Phone: 12-30-2021 13:09-0400 Body mass index (BMI) [Ratio] 30.4 kg/m2 Dr. Danie Perkins Work Phone: [facility] Work Phone: 12-30-2021 13:09-0400 Body temperature 98.2 [degF] Dr. Danie Perkins Work Phone: [facility] Work Phone: 12-30-2021 13:09-0400 Body weight 83.[address] Danie Perkins Work Phone: [facility] Work Phone: 12-30-2021 13:09-0400 Heart rate 90 /min Dr. Danie Perkins Work Phone: [facility] Work Phone: 12-30-2021 13:09-0400 Respiratory rate 16 /min Dr. Danie Perkins Work Phone: [facility] Work Phone: 12-30-2021 13:09-0400 SaO2% (BldA) [Mass fraction] 98 % Dr. Danie Perkins Work Phone: [facility] Work Phone: 12-13-2019 18:01-0400 BP Diastolic 79 mm[Hg] [facility] 12-13-2019 18:01-0400 BP Systolic 126 mm[Hg] [facility] 12-13-2019 18:01-0400 Pulse (Heart Rate) 86 /min [facility] 12-13-2019 18:01-0400 Pulse Oximetry 100 % [facility] 12-13-2019 18:01-0400 Respiratory Rate 16 /min [facility] 12-13-2019 16:31-0400 BMI (Body Mass Index) 30.45 kg/m2 [facility] 12-13-2019 16:31-0400 Body Temperature 98.6 [degF] [facility] 12-13-2019 16:31-0400 Body weight 83.01 kg [facility] 12-13-2019 16:31-0400 Height 165.1 cm [facility] 06-23-2019 20:54-0500 BP Diastolic 70 mm[Hg] [facility] 06-23-2019 20:54-0500 BP Systolic 148 mm[Hg] [facility] 06-23-2019 20:54-0500 Pulse (Heart Rate) 79 /min [facility] 06-23-2019 20:54-0500 Pulse Oximetry 100 % [facility] 06-23-2019 20:54-0500 Respiratory Rate 18 /min [facility] 06-23-2019 18:12-0500 BMI (Body Mass Index) 26.63 kg/m2 [facility] 06-23-2019 18:12-0500 Body Temperature 98.01 [degF] [facility] 06-23-2019 18:12-0500 Body weight 72.58 kg [facility] 06-23-2019 18:12-0500 Height 165.1 cm [facility] 06-20-2019 20:13-0500 BP Diastolic 102 mm[Hg] [facility] 06-20-2019 20:13-0500 BP Systolic 164 mm[Hg] [facility] 06-20-2019 20:13-0500 Pulse (Heart Rate) 93 /min [facility] 06-20-2019 18:25-0500 BMI (Body Mass Index) 26.63 kg/m2 [facility] 06-20-2019 18:25-0500 Body Temperature 98.91 [degF] [facility] 06-20-2019 18:25-0500 Body weight 72.[address] [facility] 06-20-2019 18:25-[address] [facility] 06-20-2019 18:25-0500 Pulse Oximetry 97 % [facility] 06-20-2019 18:25-0500 Respiratory Rate 18 /min Eren [facility] 08-23-2018 14:50-0400 BP Diastolic 89 mm[Hg] Haseeb Cha [facility] 08-23-2018 14:50-0400 BP Systolic 124 mm[Hg] Haseebcathleen Cha [facility] 08-23-2018 14:50-0400 Pulse (Heart Rate) 94 /min Haseebcathleen Cha [facility] 08-23-2018 14:50-0400 Pulse Oximetry 98 % Haseeb Semaj [facility] 08-23-2018 14:50-0400 Respiratory Rate 18 /min Haseebcathleen Cha [facility] 08-23-2018 11:44-0400 BMI (Body Mass Index) 28.29 kg/m2 Haseeb Semaj [facility] 08-23-2018 11:44-0400 Body Temperature 97.39 [degF] Haseebcathleen Cha [facility] 08-23-2018 11:44-0400 Height 165.1 cm Haseebcathleen Cha [facility] 08-23-2018 11:44-0400 Weight 77.11 kg [facility] Encounters Encounter Date Encounter Type Care Provider Facility Start: 01-16-2025 End: 01-16-[address] Neftali Cabral MD -[facility] Work Phone: Start: 01-16-2025 End: 01-16-[address] Danie Perkins MD Work Phone: [facility] Start: 11-17-2024 End: 11-17-2024 Office consultation new/estab patient 60 min Abiel Aldridge MD Work Phone: [facility] Comment on above: Rosacea (Primary Dx) ; Demodex acne Start: 11-17-2024 ambulatory [facility] Facility:[facility] Start: 11-06-2024 End: 11-06-[address] Neftali Cabral MD -[facility] Work Phone: Start: 11-06-2024 End: 11-06-[address] Danie Perkins MD Work Phone: [facility] Start: 10-09-2024 End: 10-09-2024 ambulatory [facility] Start: 09-07-2024 End: 09-07-2024 ambulatory [facility] Start: 09-06-2024 End: 09-06-2024 ambulatory [facility] Start: 09-06-2024 End: 09-06-2024 ambulatory [facility] Start: 08-31-2024 End: 08-31-2024 Office outpatient visit 25 minutes Sophia Morse MD Work Phone: [facility] Comment on above: MCTD (mixed connecti ve tissue disease) (Primary Dx); High risk medication use; Weight gain; Abnormal finding of blood chemistry, unspecified; Rash and nonspecific skin eruption; Right leg swelling; Paresthesia; SOB (shortness of breath); Osteopenia, unspecified location Start: 08-31-2024 ambulatory SOPHIA MORSE Facility:[facility] Start: 07-25-2024 ambulatory Philip Jaimes [facility] Start: 06-30-2024 ambulatory Mable Larios [facility] Start: 06-26-2024 ambulatory Livier Saba ty:[facility] Start: 06-12-2024 End: 06-12-2024 ambulatory Danie Perkins Facility:[facility] Start: 06-04-2024 End: 06-04-2024 Emergency department patient visit SESAR Kurtz [facility] Start: 04-18-2024 ambulatory SOPHIA MORSE [facility] Start: 04-18-2024 End: 04-18-2024 Subsequent hospital visit by physician Sophia Morse MD Work Phone: [facility] Comment on above: Arrived Start: 04-04-2024 End: 04-04-2024 ambulatory Danie Perkins Facility:[facility] Start: 10-12-2023 End: 10-12-2023 Office outpatient visit 25 minutes Krystina ALANIS Work Phone: [facility] Comment on above: Mixed connective tis syeda disease (Primary Dx); High risk medication use Start: 10-07-2023 End: 10-07-2023 Emergency department patient visit [facility] Start: 09-06-2023 Non-patient / Non-visit Dr. Antwan Perkins Work Phone: [facility] Start: 09-06-2023 End: 09-06-[address] Danie Perkins Work Phone: [facility] Work Phone: Start: 09-06-2023 End: 09-06-[address] [facility] Work [facility]: Start: 08-26-2023 End: 08-26-[address] Danie Perkins Work Phone: [facility] Work Phone: Start: 08-26-2023 End: 08-26-[address] Danie Perkins Work Phone: [facility] Work Phone: Start: 07-05-2023 End: 07-05-2023 Telephone encounter [facility] [place] Comment on above: Insurance Start: 06-07-2023 End: 06-07-[address] Danie Perkins Work Phone: [facility] Work Phone: Start: 04-22-2023 End: 04-22-2023 Subsequent hospital visit by physician Sophia Morse MD Work Phone: [facility] Comment on above: Arrived Start: 04-22-2023 End: 04-22-2023 Office outpatient visit 40 minutes Sophia Morse MD Work Phone: [facility] Comment on above: MCTD (mixed connecti ve tissue disease) (Primary Dx); Systemic lupus erythematosus with organ system involvement; Cough, unspecified type; At risk for osteoporosis; Other specified disorders of bone density and structure, multiple sites; Hypercoagulable state; Chest pain, unspecified type Start: 10-23-2022 ambulatory [facility] Start: 10-15-2022 End: 10-15-2022 Subsequent hospital visit by physician Sophia Morse MD Work Phone: [facility] Start: 10-15-2022 End: 10-15-2022 Office outpatient visit 25 minutes Sophia Morse MD Work Phone: [facility] Comment on above: MCTD (mixed connecti ve tissue disease) (Primary Dx); High risk medication use; Other specified pulmonary heart diseases; Joint pain in both hands Start: 10-14-2022 End: 10-14-[address] Danie Perkins Work Phone: [facility] Work Phone: Start: 10-14-2022 End: 10-14-[address] Danie Perkins Work Phone: [facility] Start: 10-14-2022 End: 10-14-[address] Danie Perkins Work Phone: [facility] Start: 10-13-2022 End: 10-13-[address] Danie Perkins Work Phone: [facility] Neurology Start: 09-09-2022 Non-patient / Non-visit Dr. Antwan Perkins Work Phone: [facility] Start: 08-24-2022 ambulatory ASH JOEL [facility] Start: 08-17-2022 End: 08-17-[address] Danie Perkins Work Phone: [facility] Start: 08-04-2022 End: 08-04-[address] Danie Perkins Work Phone: [facility] Work Phone: Start: 08-04-2022 End: 08-04-[address] Danie Perkins Work Phone: [facility]-Laboratory, Phy Office 3rd Flr Start: 07-09-2022 End: 07-09-[address] Danie Perkins Work Phone: [facility]-Radiology, [facility] Start: 06-15-2022 End: 06-15-[address] Danie Perkins Work Phone: [facility] Neurology Start: 06-04-2022 End: 06-08-2022 ambulatory EDDIE ALDANA [facility] Ambulatory Start: 05-14-2022 End: 05-18-2022 ambulatory DANIE PERKINS [facility] Ambul[facility] Start: 05-14-2022 End: 05-14-2022 Office outpatient visit 10 minutes Eddie Aldana MD Work Phone: [facility] Comment on above: Closed displaced fra cture of second metatarsal bone of right foot with routine healing, subsequent encounter (Primary Dx) Start: 05-07-2022 End: 05-07-2022 Office outpatient new 60 minutes Sophia Morse MD Work Phone: [facility] Comment on above: MCTD (mixed connecti ve tissue disease) (Primary Dx); Lupus anticoagulant syndrome; Closed fracture of right ankle, sequela; Disorder of bone, unspecified; Pain in joint of left shoulder; High risk medication use Start: 04-29-2022 End: 04-29-2022 ambulatory [facility] Work Phone: Start: 04-29-2022 End: 04-29-2022 [facility] Start: 03-31-2022 End: 03-31-[address] Danie Perkins Work Phone: [facility] Work Phone: Start: 03-31-2022 End: 03-31-[address] Danie Perkins [facility] Start: 01-06-2022 End: 01-06-[address] Danie Perkins Work Phone: [facility] Work Phone: Start: 01-06-2022 End: 01-06-[address] Danie Perkins Work Phone: [facility] Start: 12-30-2021 End: 12-30-[address] Danie Perkins Work Phone: [facility] Neurology Start: 12-13-2019 End: 12-13-2019 Emergency department patient visit Luis Manuel Cortés Work Phone: [facility] Comment on above: Acute pneumonitis (P rimary Dx) Start: 06-23-2019 End: 06-23-2019 Emergency department patient visit Juanis Ford Work Phone: [facility] Comment on above: Chest pain, atypical (Primary Dx) Start: 06-20-2019 End: 06-20-2019 Emergency department patient visit Eren Pierce Work Phone: [facility] Comment on above: Tendonitis (Primary Dx) Start: 08-23-2018 End: 08-23-2018 Emergency department patient visit Haseeb Cha Work Phone: [facility] Comment on above: Pyelonephritis (Prim hilda Dx) Start: 05-23-2018 End: 05-24-2018 Patient encounter procedure Cornelio Naranjo Facility:[facility] Start: 05-23-2018 Encounter for genera l adult medical examination without abnormal findings [facility] Start: 05-23-2018 End: 05-23-2018 [facility] Start: 05-06-2018 End: 05-06-2018 Emergency department patient visit Haritha Roland Andrews Facility:[facility] Start: 03-14-2018 End: 03-14-2018 Emergency department patient visit Brian Khan Facility:[facility] Start: 01-25-2018 End: 01-25-2018 Patient encounter Williamfarhad Sosa Miller Work Phone: [facility] Comment on above: Pain of hand, unspec ified laterality Start: 01-13-2018 Patient encounter procedure Neftali Cabral Facility:[facility] Start: 01-13-2018 End: 01-13-2018 Patient encounter Neftali Cabral Work Phone: [facility] Start: 12-08-2017 Patient encounter procedure Neftali Cabral Facility:[facility] Start: 12-08-2017 End: 12-08-2017 Patient encounter Neftali Cabral Work Phone: [facility] Encounter for genera l adult medical examination without abnormal findings LISA COTTO [facility] Procedures Date Procedure Procedure Detail Performing Clinician Start: 08-31-2024 25 hydroxy includes fractions if performed Sophia Morse MD Work Phone: Start: 08-31-2024 Rheumatoid factor quantitative Sophia parish MD Work Phone: Start: 04-18-2024 Dxa bone density study 1/> sites axial skel Sophia Morse MD Work Phone: Start: 09-06-2023 Plain chest X-ray Dr. Danie Perkins Work Phone: Start: 04-22-2023 Radiologic exam chest 2 views Sophia Morse MD Work Phone: Start: 10-15-2022 Echo tthrc r-t 2d w/wom-mode compl spec&colr d Sophia Morse MD Work Phone: Start: 07-09-2022 Plain X-ray of shoulder Dr. Danie Perkins Work Phone: Start: 05-07-2022 Radex shoulder complete minimum 2 views Sophia Morse MD Work Phone: Start: 12-13-2019 CT angiography of pulmonary artery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 she continues follow-up with her primary care physician for preventative health maintenance and age appropriate cancer screenings. Thank you for allowing us to participate in her care. Should you have any questions, please do not hesitate to contact us. Sophia Morse MD [employer] repair shop supervisor Department of Rheumatology [place], [place] * Sraa Lama - 05/07/2022 8:40 AM EST Patients Name, , PCP and pharmacy verfied by METAL SHEET ROLLER OPERATOR PT offered flu vaccination during visit. 05-07-22 PT(accepted/declined):DECLINED Flu vaccine order pended for physician review (Yes/No):no If No, did the patient obtain the flu vaccination elsewhere (Yes/No):no [facility] Instructions* Patient Instructions* Sophia Morse MD - 05/07/2022 8:40 AM EST Start hydroxychloroquine We may add back another medication depending on your results [facility]* Diagnosis Onset Date Resolution Status Fatigue chronic Fibromyalgia chronic Migraine headache with aura chronic [facility] Work Phone: Evaluation note* Diagnosis MCTD (mixed connective tissue disease)- Primary Other specified diffuse disease of connective tissue Lupus anticoagulant syndrome Primary hypercoagulable state Closed fracture of right ankle, sequela Disorder of bone, unspecified Pain in joint of left shoulder Pain in joint, shoulder region High risk medication use Encounter for long-term (current) use of other medications documented [facility] this encounter [facility] note[facility] assessment information available [facility] Work Phone: Evaluation note* Diagnosis Closed displaced fracture of second metatarsal bone of right foot with routine healing, subsequent encounter- [facility]* Diagnosis MCTD (mixed connective tissue disease)- Primary Other specified diffuse disease of connective tissue High risk medication use Encounter for long-term (current) use of other medications Other specified pulmonary heart diseases Joint pain in both hands MCTD (mixed connective tissue disease) Other specified diffuse disease of connective tissue Other specified pulmonary heart diseases [facility]* Diagnosis MCTD (mixed connective tissue disease) Other specified diffuse disease of connective tissue Other specified pulmonary heart diseases [facility]* Diagnosis Onset Date Resolution Status Adhesive capsulitis of left shoulder noneactive Fatigue chronic Fibromyalgia chronic Migraine headache with aura chronic Abnormal stools [facility] Work Phone: Evaluation note* Diagnosis MCTD (mixed connective tissue disease)- Primary Other specified diffuse disease of connective tissue Systemic lupus erythematosus with organ system involvement Systemic lupus erythematosus Cough, unspecified type At risk for osteoporosis Other specified conditions influencing health status Other specified disorders of bone density and structure, multiple sites Hypercoagulable state Primary hypercoagulable state Chest pain, unspecified type Cough, unspecified type [facility]* Diagnosis Cough, unspecified type [facility]* Diagnosis Onset Date Resolution Status Chest pain acute History of pulmonary embolism 2013 acute Pericardial effusion acute Syncope and collapse acute Hypokalemia acute Fatigue chronic Fibromyalgia chronic Migraine headache with aura [facility] Work Phone: Evaluation note* Diagnosis Mixed connective tissue disease- Primary Other specified diffuse disease of connective tissue High risk medication use Encounter for long-term (current) use of other medications [facility]* Diagnosis At risk for osteoporosis Other specified conditions influencing health status Other specified disorders of bone density and structure, multiple sites [facility]* Diagnosis MCTD (mixed connective tissue disease)- Primary Other specified diffuse disease of connective tissue High risk medication use Encounter for long-term (current) use of other medications Weight gain Abnormal weight gain Abnormal finding of blood chemistry, unspecified Rash and nonspecific skin eruption Rash and other nonspecific skin eruption Right leg swelling Paresthesia Disturbance of skin sensation SOB (shortness of breath) Shortness of breath Osteopenia, unspecified location [facility]* Diagnosis Onset Date Resolution Status Admit Date Fatigue chronic November 06, 2024 12:58pm Fibromyalgia chronic November 06 12:58pm Migraine headache with aura chronic November 06, 2024 12:58[facility] Work Phone: Evaluation note* Diagnosis Rosacea- Primary Demodex acne Other acne [facility] Consultation (Routine) - New Request Specialty Diagnoses / Procedures Referred By Mauricio johnston Referred To Contact Hematology Diagnoses Hypercoagulable state Sophia Morse MD [address] [id number] Referral ID Status Reason Start Date Expiration Date V isits Requested Visits Authorized [id number] New Request 04/22/2023 05/16/2024 1 1 * Radiology (Routine) - New Request Specialty Diagnoses / Procedures Referred By Mauricio johnston Referred To Contact Diagnoses At risk for osteoporosis Other specified disorders of bone density and structure, multiple sites Procedures BONE DENSITY AXIAL (HIP, PELVIS, SPINE) Sophia Morse MD [address] [address] Referral ID Status Reason Start Date Expiration Date V isits Requested Visits Authorized [id number] New Request 04/22/2023 05/16/2024 1 1 [facility] for referral (narrative)No reason for referral information available[facility] Work Phone: Assessments Diagnosis Pain of hand, unspecified la terality Diagnosis Pyelonephritis- Primary Unspecified pyelonephritis Diagnosis Tendonitis Enthesopathy of unspecified site Diagnosis Chest pain, atypical Diagnosis Acute pneumonitis Summary Purpose Family History No Family History Records Found Relationship Condition Age at Onset Recorded Date/T miguelangel mother Anxiety Unknown Malignant neoplasm of cervix Unknown Depression Unknown Malignant neoplasm of ovary Unknown Psychiatric care Unknown father Anxiety Unknown grandmother Autoimmune disorder Unknown Malignant neoplasm of breast Unknown uncle Autoimmune disorder Unknown Seizure Unknown grandfather Depression Unknown Advance Directives No Advanced Directives Records FoundDocuments on File Type Date Recorded Patient Director Of Extension Work Expl anation Advance Directives and Livin g Will 06/20/2019 8:12 PM Documents on File Type Date Recorded Patient Director Of Extension Work Expl anation Advance Directives and Livin g Will 06/23/2019 6:43 PM Documents on File Type Date Recorded Patient Director Of Extension Work Expl anation Advance Directives and Livin g Will 12/13/2019 5:11 PM Latest Code Status on File Code Status Date Activated Date Inactivated Comments Full Code 04/21/2022 12:40 AM 04/23/2022 4:34 PM Discharge Instructions * Instructions* Caitie Romo PA-C - 08/23/2018 Please take medication as prescribed. May also take Tylenol and Motrin for pain. Push fluids. Also asked to contact regulatory submissions specialist to further evaluate CT results that we discussed. If symptoms worsen or persist please present back to the ER. * Attachments The following attachments cannot be sent through Care Everywhere. * Pyelonephritis (Lao) documented in this encounter* Attachments The following attachments cannot be sent through Care Everywhere. * Tendon Injury (Tendinopathy) (Lao) documented in this encounter* Instructions* Juanis Ford MD - 06/23/2019 A consult for outpatient cardiology has been placed for further revaluation for further symptoms. * Attachments The following attachments cannot be sent through Care Everywhere. * Chest Pain (Lao) documented in this encounter* Instructions* Lillian Chavez CNP - 12/13/2019 Take the antibiotic and steroid as prescribed until gone. Read and follow all pharmacy instructionsfor this medication. If you have any questions, ask the pharmacist, your PCP or return here. Contact your PCP and make a follow up appointment in 2-3 days. Return here for new or worsening symptoms. * Attachments The following attachments cannot be sent through Care Everywhere. * Pneumonia (Lao) documented in this encounter Reason for Referral Status Reason Specialty Diagnoses / Procedures Referred By Contact Referred To Contact Authorized Cardiology Juanis Ford MD [address] [place] [address] Specialty Diagnoses / Procedures Referred By Contac t Referred To Contact Diagnoses MCTD (mixed connective tissue disease) Other specified pulmonary heart diseases Procedures ECHOCARDIOGRAM AL ECHO HEART XTHORACIC,COMPLETE W DOPPLER Sophia Morse MD [address] [place] [address] [address] [place] [address] Referral ID Status Reason Start Date Expiration Date V isits Requested Visits Authorized [id number] New Request 10/15/2022 11/09/2023 1 1 Specialty Diagnoses / Procedures Referred By Contac t Referred To Contact Diagnoses At risk for osteoporosis Other specified disorders of bone density and structure, multiple sites Procedures BONE DENSITY AXIAL (HIP, PELVIS, SPINE) Sophia Morse MD [address] [facility] [address] [place] [address] Referral ID Status Reason Start Date Expiration Date V isits Requested Visits Authorized [id number] New Request 04/22/2023 05/16/2024 1 1 Chief Complaint and Reason for Visit Chief Complaint MS/MIGRAINES EORDERS Reason for Visit Fatigue Fibromyalgia Migraine headache with aura Chief Complaint FOLLOW UP TO HOSPITA L VISIT Reason for Visit Fatigue Fibromyalgia Migraine headache with aura Chief Complaint LEFT SHOULDER Amb Documentation 4 M FU EORDER Consult E-ORDER Reason for Visit Adhesive capsulitis of left shoulder Fatigue Fibromyalgia Migraine headache with aura Abnormal stools Chief Complaint 6 M FU follow up EORDER Reason for Visit Chest pain History of pulmonary embolism Pericardial effusion Syncope and collapse Hypokalemia Fatigue Fibromyalgia Migraine headache with aura Chief Complaint 6 M FU follow up EORDER SYNCOPE Reason for Visit Chest pain History of pulmonary embolism Pericardial effusion Syncope and collapse Hypokalemia Fatigue Fibromyalgia Migraine headache with aura Chief Complaint Admit Date FOLLOW UP / MEDS November 06, 2024 12:58 pm Reason for Visit Admit Date Fatigue November 06, 2024 12:58 pm Fibromyalgia November 06, 2024 12:58 pm Migraine headache with aura November 06 12:58pm Chief Complaint Admit Date FOLLOW UP / MEDS November 06, 2024 12:58 pm ACUTE / PAIN, TINGLING January 16 11:19am Reason for Visit Admit Date Fatigue November 06, 2024 12:58 pm Fibromyalgia November 06, 2024 12:58 pm Migraine headache with aura November 06 12:58pm Fatigue January 16, 2025 11:19am Additional Source Comments INFORMATION SOURCE (unrecogn ized section and content) DATE CREATED AUTHOR 06/02/2018 [facility] DATE CREATED AUTHOR AUTHOR'S ORGANIZ ATION 08/10/2018 [facility] DATE CREATED AUTHOR AUTHOR'S ORGANIZ ATION 06/26/2021 [facility] DATE CREATED AUTHOR AUTHOR'S ORGANIZ ATION 06/08/2022 [facility] DATE CREATED AUTHOR AUTHOR'S ORGANIZ ATION 08/25/2022 [facility] DATE CREATED AUTHOR AUTHOR'S ORGANIZ ATION 10/28/2022 [facility] DATE CREATED AUTHOR AUTHOR[facility]S OR[facility]IZ ATION [facility] DATE CREATED AUTHOR AUTHOR'S ORGANIZ ATION 11/12/2024 [facility] DATE CREATED AUTHOR AUTHOR'S ORGANIZ ATION 11/20/2024 [facility] DATE CREATED AUTHOR AUTHOR'S ORGANIZ ATION 02/27/[address] [facility] Reason for Visit (unrecogniz ed section and content) Reason Comments Hematuria Reason Comments Foot Injury RIGHT Reason Comments Shoulder Pain Chest Pain Reason Comments Cough Chest Pain Reason Comments New Patient Specialty Diagnoses / Procedures Referred By Contac t Referred To Contact Rheumatology Diagnoses Lupus anticoagulant syndrome Charline Perkins MD [address] [place] [phone] [facility] [address] [place] [address] Referral ID Status Reason Start Date Expiration Date V isits Requested Visits Authorized [id number] New Request 01/15/2022 02/09/2023 1 1 Reason Comments Post-op Follow-up Reason Comments Follow-up Specialty Diagnoses / Procedures Referred By Contac t Referred To Contact Rheumatology Diagnoses Lupus anticoagulant syndrome Charline Perkins MD [address] [place] [address] [facility] [address] [place] [address] Specialty Diagnoses / Procedures Referred By Contac t Referred To Contact Diagnoses MCTD (mixed connective tissue disease) Other specified pulmonary heart diseases Procedures ECHOCARDIOGRAM AL ECHO HEART XTHORACIC,COMPLETE W DOPPLER Sophia Morse MD [address] [place] [address] Referral ID Status Reason Start Date Expiration Date V isits Requested Visits Authorized [id number] New Request 10/15/2022 11/09/2023 1 1 Reason Comments Follow-up Neck Pain In the last week 1/2 Arm Pain In the last week Vomiting Comes and go Reason Onset Date Comments Insurance 07/05/2023 Reason Comments Follow-up Specialty Diagnoses / Procedures Referred By Contac t Referred To Contact Diagnoses At risk for osteoporosis Other specified disorders of bone density and structure, multiple sites Procedures BONE DENSITY AXIAL (HIP, PELVIS, SPINE) Sophia Morse MD [address] [place] [phone] Referral ID Status Reason Start Date Expiration Date V isits Requested Visits Authorized [id number] New Request 04/22/2023 05/16/2024 1 1 Reason Comments Follow-up Reason Comments New Patient Possible Rosacea-red bumps on the nose-using vaseline at night time which is helpful. Specialty Diagnoses / Procedures Referred By Contac t Referred To Contact Dermatology Diagnoses Rash and nonspecific skin eruption Sophia Morse MD [address] [address] Phone: tel: fax: Referral ID Status Reason Start Date Expiration Date V isits Requested Visits Authorized [id number] New Request 08/31/2024 09/25/2025 1 1 Taylor Alonzo RN - 08/23/2018 2:27 PM Taylor Celeste RN - 08/23/2018 1:38 PM Taylor Celeste RN - 08/23/2018 12:50 PM EDTTCaitie funk PA-C - 08/23/2018 12:09 PM EDT ED Notes (unrecognized secti on and content) Pt resting without distress on cot, call light within reach. Denies further needs at this time. Pt to CT via cart with neurology tech. Pt updated on plan of care, denies further needs at this time. Call light within reach. ED PROVIDER NOTE [facility] NAME: Briana Lopez AGE: 43 y.o. : 1975 VISIT DATE: 08/23/2018 CSN: [id number] PCP: Danie Perkins MD Chief Complaint Patient presents with Hematuria She presents with complaint of hematuria. States she noticed it this morning. Patient also admits to mild bilateral flank pain. Patient also admits to urgency. States that sometimes she does have a difficult time actually urinating though. Denies fever and chills. Denies abdominal pain. Denies all other symptoms at this time. Patient does have a history of urinary tract infections and kidney stones. Past Medical History: Diagnosis Date Hypertension Past Surgical History: Procedure Laterality Date CHOLECYSTECTOMY OPEN STOMACH SURGERY TUBAL LIGATION Family History Problem Relation Age of Onset Cancer Mother Cancer Maternal Aunt Cancer Maternal Grandmother Social History Socioeconomic History Marital status: Legally Spouse name: Not on file Number of children: Not on file Years of education: Not on file Highest education level: Not on file Social Needs Financial resource strain: Not on file Food insecurity - worry: Not on file Food insecurity - inability: Not on file Transportation needs - medical: Not on file Transportation needs - non-medical: Not on file Occupational History Not on file Tobacco Use Smoking status: Never Smoker Smokeless tobacco: Never Used Substance and Sexual Activity Alcohol use: Not Currently Drug use: Not Currently Sexual activity: Not on file Other Topics Concern Not on file Social History Narrative Not on file Previous Medications Medication Sig meclizine (ANTIVERT) 12.5 mg tablet Take 12.5 mg by mouth 3 (three) times a day as needed for nausea . baclofen (LIORESAL) 10 MG tablet Take 10 mg by mouth 3 (three) times a day. hydrOXYzine (VISTARIL) 25 MG capsule daily as needed. mirtazapine (REMERON) 15 MG tablet Take by mouth. omeprazole (PRILOSEC) 20 MG capsule Take 20 mg by mouth. QUEtiapine (SEROquel) 300 MG tablet Take by mouth. topiramate (TOPAMAX) 100 MG tablet Take by mouth. Allergies Allergen Reactions Ciprofloxacin (Mixture) Phenylephrine-Guaifenesin Review of Systems Constitutional: Negative for activity change, chills, fatigue and fever. HENT: Negative for congestion, ear pain, hearing loss, postnasal drip, rhinorrhea, sore throat and trouble swallowing. Eyes: Negative for photophobia, pain, redness and visual disturbance. Respiratory: Negative for cough, chest tightness, shortness of breath and wheezing. Cardiovascular: Negative for chest pain, palpitations and leg swelling. Gastrointestinal: Negative for abdominal pain, constipation, diarrhea, nausea and vomiting. Genitourinary: Positive for flank pain. Negative for difficulty urinating, dysuria, hematuria and urgency. Hematuria Musculoskeletal: Negative for arthralgias, back pain, myalgias, neck pain and neck stiffness. Skin: Negative for color change and rash. Neurological: Negative for dizziness, speech difficulty, weakness, numbness and headaches. Psychiatric/Behavioral: Negative for agitation and suicidal ideas. The patient is not nervous/anxious. Patient Vitals for the past 24 hrs: BP Temp Temp src Pulse Resp SpO2 Height Weight 08/23/18 1144 125/83 97.4 F (36.3 C) Oral 78 18 98 % 5' 5 77.1 kg (170 lb) 08/23/18 1129 5' 5 77.1 kg (170 lb) Physical Exam Constitutional: She is oriented to person, place, and time. She appears well-developed and well-nourished. HENT: Head: Normocephalic and atraumatic. Mouth/Throat: Oropharynx is clear and moist. Eyes: Conjunctivae and EOM are normal. Pupils are equal, round, and reactive to light. Neck: Normal range of motion. Neck supple. Cardiovascular: Normal rate, regular rhythm, normal heart sounds and intact distal pulses. Pulmonary/Chest: Effort normal and breath sounds normal. Abdominal: Soft. Bowel sounds are normal. She exhibits no distension. There is no tenderness. TTP bilateral flank area Musculoskeletal: Normal range of motion. She exhibits no edema, tenderness or deformity. Neurological: She is alert and oriented to person, place, and time. Skin: Skin is warm and dry. Capillary refill takes less than 2 seconds. No rash noted. Psychiatric: She has a normal mood and affect. Laboratory & Radiographic Imaging (if done): Results for orders placed or performed during the hospital encounter of 08/23/18 Urine Result Value Ref Range Beta-hCG, Ur, Qual Negative Negative Urinalysis Result Value Ref Range Color, Urine Yellow Colorless, Yellow Clarity, Urine Cloudy (A) Clear Specific Clare 1.015 1.005 - 1.025 pH, Urine 7.0 5.0 - 7.0 Protein, Urine 30 (A) Negative mg/dL Glucose, Urine Negative Negative mg/dL Ketones, Urine Negative Negative mg/dL Bilirubin, Urine Negative Negative Urobilinogen, Urine <2.0 <2.0 mg/dL Blood, Urine Large (A) Negative Nitrite, Urine Negative Negative Leukocyte Esterase, Urine Large (A) Negative WBCs, Urine >180 (H) 0 - 5 /hpf RBCs, Urine >180 (H) 0 - 3 /hpf Bacteria, Urine None Seen None Seen /hpf CT Abdomen Pelvis With IV Contrast Only (Results Pending) Procedures MDM Number of Diagnoses or Management Options Diagnosis management comments: Patient has bilateral flank pain. CT did not show any ureteral calculus. She will be sent home with antibiotics for pyelonephritis. Asked to follow-up with her primary care doctor and to push fluids. Given first dose of IV antibiotics here in the emergency department. Patient was also made aware of the cyst that was identified in the vaginal canal on the CT and is to follow-up with her regulatory submissions specialist. She is aware of this and states she will follow-up with woman[facility]. Amount and/or Complexity of Data Reviewed Clinical lab tests: ordered and reviewed Tests in the radiology section of CPT : ordered and reviewed Risk of Complications, Morbidity, and/or Mortality Presenting problems: moderate Diagnostic procedures: moderate Management options: low Patient Progress Patient progress: stable . Clinical Impression: No diagnosis found. ED Disposition None Follow-up Information Follow-up information has not been specified. Contact information for after-discharge care Follow-up information has not been specified. Caitie Romo PA-C 08/23/18 1457 Pt ambulates without difficulty to restroom Pt reports hematuria this morning, reports similar episode whenI had kidney stones. Pt reports pain upon urination and maybe a little bit on my L side of my back. Increased urinary frequency of last couple weeks. documented in this encounter ED PROVIDER NOTE [facility] NAME: Briana Alvarez AGE: 44 y.o. : 1975 VISIT DATE: 06/20/2019 CSN: [id number] PCP: Danie Perkins MD Chief Complaint Patient presents with Foot Injury RIGHT Patient is a 44-year-old female who is in the emergency department for evaluation of dorsal right foot pain which she states is been present for the past 1 week. Patient denies accident or injury to her right foot. Patient has been bearing weight and ambulating during this time. She reports taking Aleve for her symptoms with no improvement. Patient denies pain or injury to her right ankle and knee. She states that her right toes are nontender and asymptomatic. Past Medical History: Diagnosis Date Hypertension Past Surgical History: Procedure Laterality Date CHOLECYSTECTOMY OPEN STOMACH SURGERY TUBAL LIGATION Family History Problem Relation Age of Onset Cancer Mother Cancer Maternal Aunt Cancer Maternal Grandmother Social History Socioeconomic History Marital status: Legally Spouse name: Not on file Number of children: Not on file Years of education: Not on file Highest education level: Not on file Occupational History Not on file Social Needs Financial resource strain: Not on file Food insecurity Worry: Not on file Inability: Not on file Transportation needs Medical: Not on file Non-medical: Not on file Tobacco Use Smoking status: Never Smoker Smokeless tobacco: Never Used Substance and Sexual Activity Alcohol use: Not Currently Drug use: Not Currently Sexual activity: Not on file Lifestyle Physical activity Days per week: Not on file Minutes per session: Not on file Stress: Not on file Relationships Social connections Talks on phone: Not on file Gets together: Not on file Attends cheondoism service: Not on file Active member of club or organization: Not on file Attends meetings of clubs or organizations: Not on file Relationship status: Not on file Other Topics Concern Not on file Social History Narrative Not on file Previous Medications Medication Sig buPROPion (Wellbutrin XL) 150 MG 24 hr tablet Take by mouth . lamoTRIgine (LAMICTAL) 100 MG tablet Take 100 mg by mouth daily . baclofen (LIORESAL) 10 MG tablet Take 10 mg by mouth 3 (three) times a day. hydrOXYzine (VISTARIL) 25 MG capsule daily as needed. meclizine (ANTIVERT) 12.5 mg tablet Take 12.5 mg by mouth 3 (three) times a day as needed for nausea . mirtazapine (REMERON) 15 MG tablet Take by mouth. omeprazole (PRILOSEC) 20 MG capsule Take 20 mg by mouth. QUEtiapine (SEROquel) 300 MG tablet Take by mouth. sulfamethoxazole-trimethoprim (BACTRIM DS,SEPTRA DS) 800-160 mg per tablet Take 1 (one) tablet by mouth 2 (two) times a day . topiramate (TOPAMAX) 100 MG tablet Take by mouth. Allergies Allergen Reactions Ciprofloxacin (Mixture) Phenylephrine-Guaifenesin Review of Systems Constitutional: Negative. HENT: Negative. Eyes: Negative. Respiratory: Negative. Cardiovascular: Negative. Gastrointestinal: Negative. Endocrine: Negative. Genitourinary: Negative. Musculoskeletal: Negative. Skin: Negative. Allergic/Immunologic: Negative. Neurological: Negative. Hematological: Negative. Psychiatric/Behavioral: Negative. Dorsal right foot pain Patient Vitals for the past 24 hrs: BP Temp Temp src Pulse Resp SpO2 Height Weight 06/20/19 1825 (!) 163/101 98.9 F (37.2 C) Oral 83 18 97 % 5' 5 72.6 kg (160 lb) Physical Exam Vitals signs and nursing note reviewed. Constitutional: Appearance: Normal appearance. She is well-developed and normal weight. HENT: Head: Normocephalic and atraumatic. Right Ear: External ear normal. Left Ear: External ear normal. Nose: Nose normal. Eyes: General: Lids are normal. Conjunctiva/sclera: Conjunctivae normal. Pupils: Pupils are equal, round, and reactive to light. Cardiovascular: Rate and Rhythm: Normal rate and regular rhythm. Pulses: Normal pulses. Heart sounds: Normal heart sounds. Pulmonary: Effort: Pulmonary effort is normal. Breath sounds: Normal breath sounds. Musculoskeletal: Normal range of motion. General: Tenderness present. Skin: General: Skin is warm and dry. Capillary Refill: Capillary refill takes less than 2 seconds. Neurological: General: No focal deficit present. Mental Status: She is alert and oriented to person, place, and time. Psychiatric: Mood and Affect: Mood normal. Behavior: Behavior normal. Thought Content: Thought content normal. Judgment: Judgment normal. Patient is awake, alert and oriented in no acute distress. Tenderness with palpation to the dorsal right foot primarily overlying the first metatarsal. There is no crepitus or deformity noted with palpation. Skin is intact without erythema or ecchymosis. No edema or effusion is noted. Patient demonstrates full range of motion of the right ankle and toes. Exam of the plantar aspect of the right foot is unremarkable. MSP is fully intact to the right foot and toes. Laboratory & Radiographic Imaging (if done): No results found for this visit on 06/20/19. XR Foot Right 3+ Views (Standard) Final Result No evidence of fracture. GVISP 1/[employer] Workstation ID: [id number] Procedures MDM Number of Diagnoses or Management Options Tendonitis: Diagnosis management comments: Physical exam findings as noted above. X-ray right foot is negative for acute findings as reported by the radiologist. A Lidoderm patch was placed to the patient's dorsal right foot and she was advised to continue Aleve as directed. Patient was provided with the contact information for Dr. Chris Bennett and instructed to contact that office for further evaluation if her symptoms persist. CLINICAL IMPRESSION: Tendonopathy Dorsal Right Foot Amount and/or Complexity of Data Reviewed Tests in the radiology section of CPT : ordered and reviewed Independent visualization of images, tracings, or specimens: yes Patient Progress Patient progress: improved . Clinical Impression: 1. Tendonitis ED Disposition ED Disposition Condition Comment Discharge Stable Briana Alvarez discharged to home/self care in stable condition. Follow-up Information 1. Chris Bennett DPM. Specialty: Podiatry [facility] [phone] Contact information for after-discharge care Follow-up information has not been specified. Juan Belcher PA-C 06/20/192012 Patient reports pain to top of right Foot for the last week. Pain level 5/10 for the last week. Denies any injury, able to move toes, no loss of sensation. documented in this encounter Discharge instructions provided and discussed, f/u provided. Patient to lobby in stable condition Patient arrives with complaints of right shoulder pain, radiates down arm. Patient states also having chest pain (points to epigastric). S/s started at 0400 Bed: 39 Expected date: Expected time: Means of arrival: Comments: MFD R4 documented in this encounter [facility] ED TRAVON Note: NAME: Briana Alvarez 44 y.o. CSN: [id number] PCP: Danie Perkins MD History: Chief Complaint: Cough and Chest Pain HPI: The history was obtained from the patient. Briana is a 44 y.o. female who presents with a chief complaint of Cough and Chest Pain. Patient has a history of HTN. Dry cough for 4 weeks, right upper chest pain 2 weeks. Pain worsens with deep breath and cough. 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 She has been taken off those medications and no longer takes blood thinners. She states the pain today is more gradual than her previous PE as well. She had a COVID test Wednesday which was negative. States possible fever on Wednesday. PMHx: Past Medical History: Diagnosis Date Hypertension PMSx: Past Surgical History: Procedure Laterality Date CHOLECYSTECTOMY OPEN STOMACH SURGERY TUBAL LIGATION FAM. Hx: Family History Problem Relation Age of Onset Cancer Mother Cancer Maternal Aunt Cancer Maternal Grandmother SOC. Hx: Social History Socioeconomic History Marital status: Spouse name: Not on file Number of children: Not on file Years of education: Not on file Highest education level: Not on file Occupational History Not on file Social Needs Financial resource strain: Not on file Food insecurity Worry: Not on file Inability: Not on file Transportation needs Medical: Not on file Non-medical: Not on file Tobacco Use Smoking status: Never Smoker Smokeless tobacco: Never Used Substance and Sexual Activity Alcohol use: Not Currently Drug use: Not Currently Sexual activity: Not on file Lifestyle Physical activity Days per week: Not on file Minutes per session: Not on file Stress: Not on file Relationships Social connections Talks on phone: Not on file Gets together: Not on file Attends cheondoism service: Not on file Active member of club or organization: Not on file Attends meetings of clubs or organizations: Not on file Relationship status: Not on file Other Topics Concern Not on file Social History Narrative Not on file MEDs: Previous Medications Medication Sig baclofen (LIORESAL) 10 MG tablet Take 10 mg by mouth 3 (three) times a day. buPROPion (Wellbutrin XL) 150 MG 24 hr tablet Take by mouth . hydrOXYzine (VISTARIL) 25 MG capsule daily as needed. lamoTRIgine (LAMICTAL) 100 MG tablet Take 100 mg by mouth daily . meclizine (ANTIVERT) 12.5 mg tablet Take 12.5 mg by mouth 3 (three) times a day as needed for nausea . mirtazapine (REMERON) 15 MG tablet Take by mouth. omeprazole (PRILOSEC) 20 MG capsule Take 20 mg by mouth. QUEtiapine (SEROquel) 300 MG tablet Take by mouth. sulfamethoxazole-trimethoprim (BACTRIM DS,SEPTRA DS) 800-160 mg per tablet Take 1 (one) tablet by mouth 2 (two) times a day . topiramate (TOPAMAX) 100 MG tablet Take by mouth. ALL: Allergies Allergen Reactions Ciprofloxacin (Mixture) Phenylephrine-Guaifenesin ROS: Positives and pertinent negatives as per HPI. All other systems were reviewed and are negative. Physical Exam: Patient Vitals for the past 24 hrs: BP Temp Pulse Resp SpO2 Height Weight 12/13/19 1801 126/79 86 16 100 % 12/13/19 1700 91 97 % 12/13/19 1638 (!) 150/90 12/13/19 1631 98.6 F (37 C) 95 16 99 % 5' 5 83 kg (183 lb) Physical Exam Vitals signs and nursing note reviewed. Constitutional: General: She is not in acute distress. Appearance: Normal appearance. She is well-developed. She is not ill-appearing, toxic-appearing or diaphoretic. HENT: Head: Normocephalic and atraumatic. Nose: Nose normal. Eyes: General: No scleral icterus. Conjunctiva/sclera: Conjunctivae normal. Cardiovascular: Rate and Rhythm: Normal rate and regular rhythm. Pulses: Dorsalis pedis pulses are 2+ on the right side and 2+ on the left side. Heart sounds: Normal heart sounds. No murmur. Pulmonary: Effort: Pulmonary effort is normal. No respiratory distress. Breath sounds: Normal breath sounds and air entry. Abdominal: General: Abdomen is flat. There is no distension. Musculoskeletal: Right lower leg: She exhibits no swelling. No edema. Left lower leg: She exhibits no swelling. No edema. Skin: General: Skin is warm and dry. Findings: No rash. Neurological: General: No focal deficit present. Mental Status: She is alert and oriented to person, place, and time. Psychiatric: Behavior: Behavior normal. Behavior is cooperative. Laboratory & Radiological Imaging (if done): Labs Reviewed CHEM 7 - Abnormal; Notable for the following components: Result Value Chloride 115 (*) Bicarbonate 17 (*) Creatinine 1.12 (*) BUN/Creatinine Ratio 8.0 (*) All other components within normal limits Narrative: The eGFR should be used for monitoring renal function only and not for medication dosing. CBC WITH AUTO DIFFERENTIAL - Abnormal; Notable for the following components: MPV 9.3 (*) All other components within normal limits NT PRO BNP - Normal Narrative: Pride Study Cut-offs Rule In: < /= 50 Years >450 pg/mL 51 Years - 75 Years >900 pg/mL 76 Years - 99 Years >1800 pg/mL Rule Out: All patients <300 pg/mL CBC AND DIFFERENTIAL Narrative: The following orders were created for panel order CBC w/ Diff. Procedure Abnormality Status --------- ------ CBC Auto Differential[[id number]] Abnormal Final result Please view results for these tests on the individual orders. TROPONIN CT Pulmonary Arteries Final Result 1. No evidence for acute mediastinal process or pulmonary embolism. 2. Slight to mild atelectasis along the minor fissure. Slight to mild patchy areas of haziness in the lateral aspect of the right upper lobe which may represent early infiltrate or slight to mild pneumonitis. Additional slight less noticeable areas of haziness throughout the lungs bilaterally which may represent trace amounts of pneumonitis. No dense infiltrate or effusion noted. 3. No evidence for thoracic lymphadenopathy. 4. Mild hiatal hernia without inflammation or edema. Limited views of the upper abdomen show fatty changes of the liver and cholecystectomy clips. Workstation ID: [id number] Chest AP/PA and LAT Preliminary Result 1. Some minimal thickening or scar seen along the right minor fissure. 2. Normal heart size. 3. No acute osseous abnormality. 4. Prior cholecystectomy. GJT/hi Workstation ID: [id number] MDM: EKG shows NSR at 91bpm without ischemia per Dr. Pierce. CBC, Chem 7, BNP, troponin unremarkable. Chest xray shows no acute findings. Chest CT scan shows no PE. Slight to mild patchy areas of haziness in the lateral aspect of the right upper lobe which may represent early infiltrate or slight to mild pneumonitis. Additional slight less noticeable areas of haziness throughout the lungs bilaterally which may represent trace amounts of pneumonitis. No dense infiltrate or effusion noted. COVID test negative Wednesday. Will treat with azithromycin and steroid. No respiratory distress. 100% on room air. To follow up with PCP or return for new or worsening symptoms. Discharged in stable condition. Clinical Impression: 1. Acute pneumonitis Disposition: Patient is being discharge home. New Prescriptions azithromycin (ZITHROMAX) 250 MG tablet Take 1 (one) tablet (250 mg total) by mouth daily . methylPREDNISolone (MEDROL DOSEPACK) 4 mg tablet follow package directions . Lillian Chavez CNP ED Advanced Practice Provider [facility] Emergency Department (Please note that portions of this note have been completed with a voice recognition software. Efforts were made to correct any errors, but occasionally words are mis-transcribed.) Lillian Chavez CNP 12/13/191902 Patient arrives to the emergency dept with c/o non productive cough x 4 weeks and chest pain that began 2 weeks ago. Patient tested for COVID-19 last Wednesday with a negative result. Patient reports pain with a deep breath. Patient HX PE and DVT. documented in this encounter Goals (unrecognized section and content) Goals may be documented in a n alternate sectionGoals may be documented in an alternate sectionGoals may be documented in an alternate sectionGoals may be documented in an alternate sectionGoals may be documented in an alternate sectionGoals may be documented in an alternate sectionGoals may be documented in an alternate sectionGoals may be documented in an alternate sectionGoals may be documented in an alternate section Care Teams (unrecognized sec tion and content) [employer] Relationship Specialty Start Date End Date Charline Perkins MD [address] [place] [phone] PCP - General Internal Medicine 06/11/21 Danie Perkins Chi, MD 06/11/21 [employer] Relationship Specialty Start Date End Date Danie Perkins Chi, MD [address] [place] [address] PCP - General Geriatric Medicine 04/20/22 Team Status: Active Member Role Status Dates Dr. Danie Perkins MD Family Provider Active Dr. Danie Perkins MD Primary Care Provider Active Team Status: Inactive Member Role Status Dates Dr. Danie Perkins MD Primary Care Provider Active Dr. Neftali Cabral MD Attending Provider, Referring Provider Active Team Status: Inactive Member Role Status Dates Dr. Danie Perkins MD Primary Care Provider, Attending Provider Active Team Status: Inactive Member Role Status Dates Dr. Danie Perkins MD Primary Care Provi haris, Attending Provider, Referring Provider Active [employer] Relationship Specialty Start Date End Date Charline Perkins MD [address] [place] [address] PCP - General Internal Medicine 06/11/21 Danie Perkins Chi, MD [address] [place] [address] 06/11/21 [employer] Operator Relationship Specialty Start Date End Date Charline Perkins MD [address] [place] [phone] PCP - General Internal Medicine 06/11/21 Danie Perkisn Chi, MD [address] [place] [address] 06/11/21 Team Status: Inactive Member Role Status Dates Dr. Danie Perkins MD Primary Care Provider, Referring Provider Active Dr. Jorge Wu DO Attending Provider Active Team Status: Inactive Member Role Status Dates Dr. Danie Perkins MD Primary Care Provider, Referring Provider Active Dr. Ash Joel DO Attending Provider Active Team Status: Active Member Role Status Dates Dr. Danie Perkins MD Primary Care Provider Active Afua Snowden Attending Provider Active Team Status: Inactive Member Role Status Dates Dr. Danie Perkins MD Primary Care Provider Active Dr. Jorge Wu DO Attending Provider, Referring Provider Active [employer] Relationship Specialty Start Date End Date Charline Perkins MD [address] [place] [phone] PCP - General Internal Medicine 06/11/21 Danie Perkins Chi, MD [address] [place] [address] 06/11/21 [employer] Relationship Specialty Start Date End Date Charline Perkins MD [address] [place] [phone] PCP - General Internal Medicine 06/11/21 Danie Perkins Chi, MD [address] [place] [address] 06/11/21 Team Status: Inactive Member Role Status Dates Dr. Danie Perkins MD Primary Care Provider, Referring Provider Active Amado Salamanca ORGANIC PREPARATION ANALYST, ORGANIC PREPARATION ANALYST-C Attending Provider Active Team Status: Inactive Member Role Status Dates Dr. Danie Perkins MD Primary Care Provider, Referring Provider Active Dr. Neftali Cabral MD Attending Provider Active Team Status: Active Member Role Status Dates Dr. Danie Perkins MD Primary Care Provider Active Dr. Philip Jaimes MD Attending Provider Active Team Status: Inactive Member Role Status Dates Dr. Danie Perkins MD Primary Care Provi haris, Attending Provider, Referring Provider Active Amado Salamanca ORGANIC PREPARATION ANALYST, ORGANIC PREPARATION ANALYST-C Other Provider Active [employer] Relationship Specialty Start Date End Date Charline Perkins MD [address] [place] [phone] PCP - General Internal Medicine 06/11/21 Danie Perkins Chi, MD [address] [place] [address] 06/11/21 [employer] Operator Relationship Specialty Start Date End Date Charline Perkins MD [address] [place] [phone] PCP - General Internal Medicine 06/11/21 Danie Perkins Chi, MD [address] [place] [address] 06/11/21 [employer] Operator Relationship Specialty Start Date End Date Charline Perkins MD PCP - General Internal Medicine 06/11/21 Danie Perkins Chi, MD 06/11/21 Team Status: Active Member Role/Relationship Status Dates Dr. Danie Perkins MD Primary Care Provider Active Team Status: Inactive Member Role/Relationship Status Dates Dr. Daine Perkins MD Primary Care Provider Active Start: November 06, 2024 End: November 06, 2024 Dr. Danie Perkins MD Referring Provider Active Start: November 06, 2024 End: November 06, 2024 Dr. Neftali Cabral MD Attending Provider Active Start: November 06, 2024 End: November 06, 2024 [employer] Relationship Specialty Start Date End Date Charline Perkins MD PCP - General Internal Medicine 06/11/21 Danie Perkins Chi, MD 06/11/21 Team Status: Inactive Member Role/Relationship Status Dates Dr. Danie Perkins MD Primary Care Provider Active Start: November 06, 2024 End: November 06, 2024 Dr. Neftali Cabral MD Attending Provider Active Start: November 06, 2024 End: November 06, 2024 Dr. Neftali Cabral MD Referring Provider Active Start: November 06, 2024 End: November 06, 2024 Team Status: Inactive Member Role/Relationship Status Dates Dr. Danie Perkins MD Primary Care Provider Active Start: January 16, 2025 End: January 16, 2025 Dr. Danie Perkins MD Referring Provider Active Start: January 16, 2025 End: January 16, 2025 Dr. Neftali Cabral MD Attending Provider Active Start: January 16, 2025 End: January 16, 2025 FOR RECORDS PERTAINING TO PATIENTS WHO ARE OR HAVE BEEN ENROLLED IN A CHEMICAL DEPENDENCY/SUBSTANCEABUSE PROGRAM, SOME INFORMATION MAY BE OMITTED. This clinical summary was aggregated from multiple sources. Caution should be exercised in using it in the provision of clinical care. This summary normalizes information from multiple sources, and as a consequence, information in this document may materially change the coding, format and clinical context of patient data. In addition, data may be omitted in some cases. CLINICAL DECISIONS SHOULD BE BASED ON THE PRIMARY CLINICAL RECORDS. [facility] [employer] [facility]. provides no warranty or guarantee of the accuracy or completeness of information in this document.
[2025-04-12 23:16] LABS: Xtra Tube Kwok EXTRA TUBE
== END | disposition home or self-care (01) ==
LOC: POLAB3 15:15
PROVIDERS: Psychiatry & Neurology Neurology; PCP Family Medicine Geriatric Medicine; Visit Provider Family Medicine Geriatric Medicine
DX: D68.62 Lupus anticoagulant syndrome (principal); E78.6 Lipoprotein deficiency; I10 Essential (primary) hypertension
CPT/HCPCS: 36415; 80053; 83735; 84443; 85025